=== PATIENT | male | born 1985 | race Caucasian/White ===

== ENCOUNTER 2020-10-10 10:50 | Observation (INO) | payer OTHER ==
[2020-10-10] MEDS ORDERED: METOCLOPRAMIDE 5 MG/ML 2 ML VIAL IVP STA (11:07)
[2020-10-10] MEDS ORDERED: diphenhydrAMINE 50 MG/ML 1 ML VIAL IVP STA ×2 (11:07→11:08)
[2020-10-10] MEDS ORDERED: SODIUM CHLORIDE 0.9% 1,000 ML IV STA (11:07)
[2020-10-10] MEDS ORDERED: MORPHINE SULFATE 4 MG/ML SYRINGE IVP STA (11:19)
--- NOTE | 2020-10-10 11:23 | ED ---
General Adult HPI - General Chief complaint: Nausea/Vomiting/Diarrhea Stated complaint: Abd Pain, Vomiting Time Seen by Provider: 10/10/20 10:56 Source: EMS Mode of arrival: EMS Limitations: no limitations - History of Present Illness Initial comments: 35-year-old male presents to the emergency room for chief commit of nausea vomiting. Patient is a poor strength, refusing the clutch. EMS was called and had to remove patient from the shower. Patient has been nauseous and vomiting with abdominal pain. Apparently he has a history of ulcers. - Related Data Home Medications Medication Instructions Recorded Confirmed No Known Home Medications 10/10/20 10/10/20 Allergies Allergy/AdvReac Type Severity Reaction Status Date / Time No Known Allergies Allergy Verified 10/10/20 11:41 Review of Systems ROS Statement: Those systems with pertinent positive or pertinent negative responses have been documented in the HPI. ROS Other: All systems not noted in ROS Statement are negative. Past Medical History Past Medical History: No Reported History History of Any Multi-Drug Resistant Organisms: None Reported Past Surgical History: No Surgical Hx Reported General Exam Limitations: no limitations General appearance: alert, in no apparent distress Head exam: Present: atraumatic, normocephalic, normal inspection Eye exam: Present: normal appearance, PERRL, EOMI. Absent: scleral icterus, conjunctival injection, periorbital swelling ENT exam: Present: normal exam, mucous membranes moist Neck exam: Present: normal inspection. Absent: tenderness, meningismus, lymphadenopathy Respiratory exam: Present: normal lung sounds bilaterally. Absent: respiratory distress, wheezes, rales, rhonchi, stridor Cardiovascular Exam: Present: regular rate, normal rhythm, normal heart sounds. Absent: systolic murmur, diastolic murmur, rubs, gallop, clicks GI/Abdominal exam: Present: soft, tenderness (generalized), normal bowel sounds. Absent: distended, guarding, rebound, rigid Course Vital Signs 10/10/20 10/10/20 10/10/20 10:59 11:30 12:30 Temperature 98.7 F Pulse Rate 86 89 81 Respiratory 18 18 17 Rate Blood Pressure 122/70 126/68 121/65 O2 Sat by Pulse 97 97 99 Oximetry 10/10/20 10/10/20 13:15 14:00 Temperature 98.4 F Pulse Rate 88 91 Respiratory 18 22 Rate Blood Pressure 120/60 103/81 O2 Sat by Pulse 99 99 Oximetry - Reevaluation(s) Reevaluation #1: 10/10/20 12:44 Girlfriend is at bedside at this time. She reports that this is happened patient's in the past. They used to live in [place] and she states he had to go to the ER every few months for this before moving here at the end of last year. Denies drug abuse in patient aside from marijuana. She does report that he uses the shower to help with his symptoms. Medical Decision Making - Medical Decision Making Vitals are stable. Patient refuses to speak much. He is tremulous and diaphoretic. CBC does show leukocytosis with a left shift suspect secondary to vomiting. CMP shows possible dehydration with hypercalcemia. Lactic acid of 3.0 likely due to dehydration as well as tremors.Chest x-ray shows no acute process. Urinalysis does show marijuana as well as opioid however patient was given morphine prior to drug screen. CT abdomen and pelvis is normal aside from small hiatal hernia. CT brain is pending. Patient was given several different antibiotics and continues to vomit. He was given Ativan. I suspect this is secondary to hyperemesis cannabis syndrome. However patient is intractably vomiting, diaphoretic, tremulous he will be admitted for severe headache treatment and IV hydration. - Lab Data Result diagrams: 10/10/20 11:24 10/10/20 11:24 Lab Results 10/10/20 10/10/20 10/10/20 Range/Units 11:24 11:24 11:24 WBC 20.3 H (3.8-10.6) k/uL RBC 5.53 (4.30-5.90) m/uL Hgb 18.3 H (13.0-17.5) gm/dL Hct 52.4 (39.0-53.0) % MCV 94.8 (80.0-100.0) fL MCH 33.0 (25.0-35.0) pg MCHC 34.8 (31.0-37.0) g/dL RDW 11.8 (11.5-15.5) % Plt Count 301 (150-450) k/uL MPV 7.7 Neutrophils % 87 % Lymphocytes % 6 % Monocytes % 5 % Eosinophils % 1 % Basophils % 0 % Neutrophils # 17.7 H (1.3-7.7) k/uL Lymphocytes # 1.3 (1.0-4.8) k/uL Monocytes # 0.9 (0-1.0) k/uL Eosinophils # 0.1 (0-0.7) k/uL Basophils # 0.1 (0-0.2) k/uL Sodium 143 (137-145) mmol/L Potassium 4.5 (3.5-5.1) mmol/L Chloride 109 H (98-107) mmol/L Carbon Dioxide 22 (22-30) mmol/L Anion Gap 12 mmol/L BUN 15 (9-20) mg/dL Creatinine 0.71 (0.66-1.25) mg/dL Est GFR (CKD-EPI)AfAm >90 (>60 ml/min/1.73 sqM) Est GFR (CKD-EPI)NonAf >90 (>60 ml/min/1.73 sqM) Glucose 131 H (74-99) mg/dL Plasma Lactic Acid Jonathon (0.7-2.0) mmol/L Calcium 11.1 H (8.4-10.2) mg/dL Total Bilirubin 0.6 (0.2-1.3) mg/dL AST 28 (17-59) U/L ALT 18 (4-49) U/L Alkaline Phosphatase 96 (38-126) U/L Total Protein 8.5 H (6.3-8.2) g/dL Albumin 4.9 (3.5-5.0) g/dL Amylase 171 H (30-110) U/L Lipase 220 (23-300) U/L Urine Color Yellow Urine Appearance Clear (Clear) Urine pH 6.0 (5.0-8.0) Ur Specific [place] >1.050 H (1.001-1.035) Urine Protein Trace H (Negative) Urine Glucose (UA) Negative (Negative) Urine Ketones 2+ H (Negative) Urine Blood Negative (Negative) Urine Nitrite Negative (Negative) Urine Bilirubin Negative (Negative) Urine Urobilinogen <2.0 (<2.0) mg/dL Ur Leukocyte Esterase Negative (Negative) Urine Opiates Screen (NotDetected) Ur Oxycodone Screen (NotDetected) Urine Methadone Screen (NotDetected) Ur Propoxyphene Screen (NotDetected) Ur Barbiturates Screen (NotDetected) U Tricyclic Antidepress (NotDetected) Ur Phencyclidine Scrn (NotDetected) Ur Amphetamines Screen (NotDetected) U Methamphetamines Scrn (NotDetected) U Benzodiazepines Scrn (NotDetected) Urine Cocaine Screen (NotDetected) U Marijuana (THC) Screen (NotDetected) 10/10/20 10/10/20 Range/Units 11:24 11:24 WBC (3.8-10.6) k/uL RBC (4.30-5.90) m/uL Hgb (13.0-17.5) gm/dL Hct (39.0-53.0) % MCV (80.0-100.0) fL MCH (25.0-35.0) pg MCHC (31.0-37.0) g/dL RDW (11.5-15.5) % Plt Count (150-450) k/uL MPV Neutrophils % % Lymphocytes % % Monocytes % % Eosinophils % % Basophils % % Neutrophils # (1.3-7.7) k/uL Lymphocytes # (1.0-4.8) k/uL Monocytes # (0-1.0) k/uL Eosinophils # (0-0.7) k/uL Basophils # (0-0.2) k/uL Sodium (137-145) mmol/L Potassium (3.5-5.1) mmol/L Chloride (98-107) mmol/L Carbon Dioxide (22-30) mmol/L Anion Gap mmol/L BUN (9-20) mg/dL Creatinine (0.66-1.25) mg/dL Est GFR (CKD-EPI)AfAm (>60 ml/min/1.73 sqM) Est GFR (CKD-EPI)NonAf (>60 ml/min/1.73 sqM) Glucose (74-99) mg/dL Plasma Lactic Acid Jonathon 3.0 H* (0.7-2.0) mmol/L Calcium (8.4-10.2) mg/dL Total Bilirubin (0.2-1.3) mg/dL AST (17-59) U/L ALT (4-49) U/L Alkaline Phosphatase (38-126) U/L Total Protein (6.3-8.2) g/dL Albumin (3.5-5.0) g/dL Amylase (30-110) U/L Lipase (23-300) U/L Urine Color Urine Appearance (Clear) Urine pH (5.0-8.0) Ur Specific [place] (1.001-1.035) Urine Protein (Negative) Urine Glucose (UA) (Negative) Urine Ketones (Negative) Urine Blood (Negative) Urine Nitrite (Negative) Urine Bilirubin (Negative) Urine Urobilinogen (<2.0) mg/dL Ur Leukocyte Esterase (Negative) Urine Opiates Screen Detected H (NotDetected) Ur Oxycodone Screen Not Detected (NotDetected) Urine Methadone Screen Not Detected (NotDetected) Ur Propoxyphene Screen Not Detected (NotDetected) Ur Barbiturates Screen Not Detected (NotDetected) U Tricyclic Antidepress Not Detected (NotDetected) Ur Phencyclidine Scrn Not Detected (NotDetected) Ur Amphetamines Screen Not Detected (NotDetected) U Methamphetamines Scrn Not Detected (NotDetected) U Benzodiazepines Scrn Not Detected (NotDetected) Urine Cocaine Screen Not Detected (NotDetected) U Marijuana (THC) Screen Detected H (NotDetected) Disposition Clinical Impression: Intractable nausea and vomiting, Abdominal pain, Dehydration, Leukocytosis, Lactic acidosis Disposition: ADMITTED IP TO THIS HOSP Is patient prescribed a controlled substance at d/c from ED?: No Time of Disposition: 14:17
[2020-10-10 12:18] LABS: ALT 18 U/L (4-49); African American GFR (CKD) >90 (>60 ml/min/1.73 sqM); Albumin 4.9 g/dL (3.5-5.0); Amylase 171 U/L (30-110); Anion Gap 12 mmol/L; Basophils # (A) 0.1 k/uL (0-0.2); Basophils % (A) 0 %; Blood Urea Nitrogen 15 mg/dL (9-20); Calcium 11.1 mg/dL (8.4-10.2); Carbon Dioxide 22 mmol/L (22-30); Chloride 109 mmol/L (98-107); Eosinophils # (A) 0.1 k/uL (0-0.7); Eosinophils % (A) 1 %; Glucose 131 mg/dL (74-99); HCT 52.4 % (39.0-53.0); HGB 18.3 gm/dL (13.0-17.5); Lipase 220 U/L (23-300); Lymphocytes # (A) 1.3 k/uL (1.0-4.8); Lymphocytes % (A) 6 %; MCHC 34.8 g/dL (31.0-37.0); MCV 94.8 fL (80.0-100.0); Mean Platelet Volume 7.7; Monocytes # (A) 0.9 k/uL (0-1.0); Monocytes % (A) 5 %; Neutrophils # (A) 17.7 k/uL (1.3-7.7); Neutrophils % (A) 87 %; Non-African American GFR(CKD) >90 (>60 ml/min/1.73 sqM); Platelet Count 301 k/uL (150-450); RBC 5.53 m/uL (4.30-5.90); RDW 11.8 % (11.5-15.5); Sodium 143 mmol/L (137-145); Total Bilirubin 0.6 mg/dL (0.2-1.3); Total Protein 8.5 g/dL (6.3-8.2); WBC 20.3 k/uL (3.8-10.6)
[2020-10-10 12:19] LABS: AST 28 U/L (17-59); Alkaline Phosphatase 96 U/L (38-126); Potassium 4.5 mmol/L (3.5-5.1)
[2020-10-10] MEDS ORDERED: ONDANSETRON 4 MG/2 ML VIAL IVP STA (12:44)
--- NOTE | 2020-10-10 13:18 | XR ---
EXAMINATION TYPE: XR chest 2V DATE OF EXAM: 10/10/2020 COMPARISON: None INDICATION: Leukocytosis diaphoretic TECHNIQUE: Frontal and lateral views of the chest are obtained. FINDINGS: The heart size is normal. The pulmonary vasculature is normal. The lungs are clear. IMPRESSION: 1. No acute pulmonary process.
--- NOTE | 2020-10-10 13:27 | CT ---
EXAMINATION TYPE: CT abdomen pelvis w con DATE OF EXAM: 10/10/2020 COMPARISON: None INDICATION: Patient poor historian. Patient appears diaphoretic and a bucket had emesis on the count er in the room. DLP: 740.5 mGycm, Automated exposure control for dose reduction was used. CONTRAST: 100 mL of Isovue 300. Study performed without Oral Contrast TECHNIQUE: Axial images were obtained from above the diaphragm to the pubic rami in the axial plane a t 5 mm thick sections. Reconstructed images are reviewed on the computer in the coronal plane. FINDINGS: Limited CT sections are obtained the lung bases. The lung bases are clear. There is some mild promi nence of the distal esophagus. Small hiatal hernia may be present. CT ABDOMEN: Liver: Normal Spleen: Normal Pancreas: Normal Adrenal glands: The adrenal glands are normal. Gallbladder: Normal Kidneys: No masses are evident. No hydronephrosis is present. No cysts are present. Delayed images were obtained through the kidneys, which remain unremarkable. Aorta: Normal Inferior vena cava: Normal. CT PELVIS: Loops of bowel within the abdomen and pelvis are normal. There are loops of bowel which are incom pletely distended or lack oral contrast limiting their evaluation. Appendix: Appears to be surgically absent. Urinary bladder: Normal. Genitourinary structures: Prostate is normal. Osseous structures: No suspicious lytic or sclerotic lesions. IMPRESSIONS: 1. Unremarkable CT abdomen and pelvis. 2. Small hiatal hernia may be present.
[2020-10-10 13:37] LABS: Appearance,Urine Clear (Clear); Bilirubin,Urine Negative (Negative); Blood,Urine Negative (Negative); Color,Urine Yellow; Glucose,Urine (UA) Negative (Negative); Ketones,Urine 2+ (Negative); Leukocyte Esterase,Urine Negative (Negative); Nitrite,Urine Negative (Negative); Protein,Urine Trace (Negative); Urobilinogen,Urine <2.0 mg/dL (<2.0)
[2020-10-10 13:42] LABS: Specific Gravity,Urine >1.050 (1.001-1.035)
[2020-10-10 13:45] LABS: Amphetamine Screen,Urine Not Detected (NotDetected); Barbiturate Screen,Urine Not Detected (NotDetected); Benzodiazepines Screen,Urine Not Detected (NotDetected); Cocaine Screen,Urine Not Detected (NotDetected); Methadone Screen, Urine Not Detected (NotDetected); Opiate Screen,Urine Detected (NotDetected); Oxycodone Screen, Urine Not Detected (NotDetected); Phencyclidine Screen,Urine Not Detected (NotDetected); Tricyclic Antidepressant,Urine Not Detected (NotDetected); Urn Cannabinoid Scrn Detected (NotDetected)
[2020-10-10] MEDS ORDERED: LORazepam 2 MG/ML INJ IV STA (13:59)
[2020-10-10 14:04] VITALS: TEMP 98.4
[2020-10-10] MEDS ORDERED: NALOXONE 0.4 MG/ML 1 ML VIAL IV PRN (14:18)
[2020-10-10] MEDS ORDERED: KETOROLAC 15 MG/ML 1 ML VIAL IVP PRN (14:18)
[2020-10-10] MEDS ORDERED: LORazepam 2 MG/ML INJ IV PRN (14:18)
[2020-10-10] MEDS ORDERED: ONDANSETRON 4 MG/2 ML VIAL IVP PRN (14:18)
[2020-10-10] MEDS ORDERED: SODIUM CHLORIDE 0.9% 1,000 ML IV SCH (14:30)
--- NOTE | 2020-10-10 14:39 | CT ---
EXAMINATION TYPE: CT brain wo con DATE OF EXAM: 10/10/2020 COMPARISON: None HISTORY: Altered mental status CT DLP: 1614.4 mGycm. Automated Exposure Control for Dose Reduction was Utilized. TECHNIQUE: CT scan of the head is performed without contrast. FINDINGS: There is no acute intracranial hemorrhage, mass effect, or midline shift identified. The ventricles and sulci are within normal limits in size. The globes are intact and the visualized sin uses are clear. Lucent focus is present within the parietal calvarium towards the convexity and show some fat density, findings may represent hemangioma within the skull. Cerumen is present in the exter nal auditory canal on the left. IMPRESSION: No acute intracranial hemorrhage, mass effect, or midline shift is seen.
[2020-10-10] MEDS ORDERED: PANTOPRAZOLE 40 MG/10 ML VIAL IVP SCH (16:00)
--- NOTE | 2020-10-10 16:07 | P.HPIM ---
History of Present Illness H&P Date: 10/10/20 Chief Complaint: Nausea and vomiting This is a 35-year-old male with past medical history significant for marijuana abuse that presented to the emergency room with nausea and vomiting. Patient was seen by me in the ER. He was uncooperative and not answering any questions. His nurse told me that she just gave him IV Ativan for agitation. Patient is complaining of abdominal pain. His abdomen is soft on exam but very tender. He denies alcohol use. His girlfriend said that he had similar presentation in the past. Patient also uses marijuana on a regular basis and hot showers to cope with his symptoms. Review of Systems Review of system: 14 points review of systems were obtained and were negative except to what were mentioned in the HPI. Past Medical History Past Medical History: No Reported History History of Any Multi-Drug Resistant Organisms: None Reported Past Surgical History: No Surgical Hx Reported Medications and Allergies Home Medications Medication Instructions Recorded Confirmed Type No Known Home Medications 10/10/20 10/10/20 History Allergies Allergy/AdvReac Type Severity Reaction Status Date / Time No Known Allergies Allergy Verified 10/10/20 11:41 Physical Exam Vitals: Vital Signs Temp Pulse Resp BP Pulse Ox 10/10/20 15:58 91 16 118/84 99 10/10/20 15:00 96 18 120/84 99 10/10/20 14:00 98.4 F 91 22 103/81 99 10/10/20 13:15 88 18 120/60 99 10/10/20 12:30 81 17 121/65 99 10/10/20 11:30 89 18 126/68 97 10/10/20 10:59 98.7 F 86 18 122/70 97 Intake and Output 10/10/20 10/10/20 10/10/20 06:59 14:59 22:59 Other: Weight 68.039 kg General: The patient is awake and alert, in no distress Eye: there is normal conjunctiva bilaterally. Neck: The neck is supple, there is no JVD. Cardiovascular: Normal S1-S2, no S3-S4, no murmurs. Respiratory: Lungs clear to auscultation bilaterally Gastrointestinal: Abdomen is soft, nontender Musculoskeletal: There is no pedal edema. Neurological:. Speech is normal. Skin: Skin is warm and dry Results CBC & Chem 7: 10/10/20 11:24 10/10/20 11:24 Labs: Abnormal Lab Results - Last 24 Hours (Table) 10/10/20 10/10/20 10/10/20 Range/Units 11:24 11:24 11:24 WBC 20.3 H (3.8-10.6) k/uL Hgb 18.3 H (13.0-17.5) gm/dL Neutrophils # 17.7 H (1.3-7.7) k/uL Chloride 109 H (98-107) mmol/L Glucose 131 H (74-99) mg/dL Plasma Lactic Acid Jonathon (0.7-2.0) mmol/L Calcium 11.1 H (8.4-10.2) mg/dL Total Protein 8.5 H (6.3-8.2) g/dL Amylase 171 H (30-110) U/L Ur Specific [place] >1.050 H (1.001-1.035) Urine Protein Trace H (Negative) Urine Ketones 2+ H (Negative) Urine Opiates Screen (NotDetected) U Marijuana (THC) Screen (NotDetected) 10/10/20 10/10/20 Range/Units 11:24 11:24 WBC (3.8-10.6) k/uL Hgb (13.0-17.5) gm/dL Neutrophils # (1.3-7.7) k/uL Chloride (98-107) mmol/L Glucose (74-99) mg/dL Plasma Lactic Acid Jonathon 3.0 H* (0.7-2.0) mmol/L Calcium (8.4-10.2) mg/dL Total Protein (6.3-8.2) g/dL Amylase (30-110) U/L Ur Specific [place] (1.001-1.035) Urine Protein (Negative) Urine Ketones (Negative) Urine Opiates Screen Detected H (NotDetected) U Marijuana (THC) Screen Detected H (NotDetected) Assessment and Plan Assessment: 1. Cannabis hyperemesis syndrome 2. Abdominal pain with nausea and vomiting 3. Acute encephalopathy, probably secondary to marijuana use 4. Marijuana abuse Today, I reviewed his medication list and lab work results. His lab work is all within acceptable/normal range including electrolytes, liver function tests, and lipase. UA is negative. Computed tomography scan of the head and CT of the abdomen and pelvis with no acute findings. I would obtain ammonia level. I will also check alcohol level to rule out alcohol intoxication. Continue aggressive IV fluid hydration with normal saline at 1:30 mL per hour. Patient will be placed on observation.
[2020-10-10 18:14] VITALS: RESP 20
[2020-10-10 19:11] VITALS: BP 134/78; PULSE 91
--- NOTE | 2020-10-11 11:25 | P.DS ---
Providers Date of admission: 10/10/20 14:11 Expected date of discharge: 10/11/20 Attending physician: Get Galeana Primary care physician: Stated None Hospital Course: Patient left the hospital overnight AGAINST MEDICAL ADVICE prior to my evaluation today Patient Condition at Discharge: Poor Plan - Discharge Summary New Discharge Prescriptions: No Action No Known Home Medications Discharge Medication List No Known Home Medications 10/10/20 [History] Discharge Disposition: Left Against Medical Advice
== END 2020-10-11 06:38 | disposition left against medical advice (07) ==
LOC: EC 10:50 → 5NMEDONC 14:11
PROVIDERS: ADMIT Internal Medicine Hematology & Oncology; ATTEND Internal Medicine Hematology & Oncology
DX: R11.2 Nausea with vomiting, unspecified (principal); F12.188 Cannabis abuse with other cannabis-induced disorder; G93.40 Encephalopathy, unspecified; E86.0 Dehydration; R61 Generalized hyperhidrosis; K44.9 Diaphragmatic hernia without obstruction or gangrene; D72.829 Elevated white blood cell count, unspecified; E87.2 Acidosis; R10.9 Unspecified abdominal pain; R45.1 Restlessness and agitation; Z20.822 Contact with and (suspected) exposure to COVID-19; Z53.29 Procedure and treatment not carried out because of patient's decision for other reasons
CPT/HCPCS: 96376; 96361; 96374; 96375; 99285; 36415; 80053; 82140; 82150; 83605; 83690; 85025; 81003; 80306; 87635; 71046; 70450; 74177; G0378; G0480; J2060; J2270; J1200; J2765; J2405; C9113; Q9967; 80320; 85610; 85730; 99284

== ENCOUNTER 2020-10-11 18:02 | Emergency (ER) | payer OTHER ==
[2020-10-11 18:08] VITALS: BP 154/102; PULSE 70; RESP 22; TEMP 98
[2020-10-11] MEDS ORDERED: SODIUM CHLORIDE 0.9% 1,000 ML IV STA (18:38)
[2020-10-11] MEDS ORDERED: ONDANSETRON 4 MG/2 ML VIAL IVP STA (18:41)
[2020-10-11] MEDS ORDERED: PANTOPRAZOLE 40 MG/10 ML VIAL IVP STA (18:41)
[2020-10-11 18:55] LABS: HCT 49.8 % (39.0-53.0); HGB 16.6 gm/dL (13.0-17.5); MCH 32.2 pg (25.0-35.0); MCHC 33.4 g/dL (31.0-37.0); MCV 96.5 fL (80.0-100.0); Mean Platelet Volume 7.7; Platelet Count 270 k/uL (150-450); RBC 5.16 m/uL (4.30-5.90); RDW 12.7 % (11.5-15.5); WBC 32.6 k/uL (3.8-10.6)
--- NOTE | 2020-10-11 19:00 | ED ---
General Adult HPI - General Chief complaint: Nausea/Vomiting/Diarrhea Stated complaint: GI Bleed Time Seen by Provider: 10/11/20 18:31 Source: patient, EMS, RN notes reviewed, old records reviewed Mode of arrival: EMS Limitations: no limitations - History of Present Illness Initial comments: 35-year-old male with presenting with nausea and vomiting as well as abdominal pain. He was admitted yesterday with similar complaints. He had a workup including CT abdomen pelvis, CT brain as well as laboratory testing. He had been admitted for symptom control and rehydration. He left AGAINST MEDICAL ADVICE. He is presenting again with the same complaints. He states she's thirsty and wants to drink but then sticks his finger down his throat to vomit. Nursing did request that the patient stop attempting to make himself vomit. IV was established, laboratory testing had been sent. - Related Data Home Medications Medication Instructions Recorded Confirmed No Known Home Medications 10/10/20 10/10/20 Allergies Allergy/AdvReac Type Severity Reaction Status Date / Time No Known Allergies Allergy Verified 10/11/20 18:54 Review of Systems ROS Statement: Those systems with pertinent positive or pertinent negative responses have been documented in the HPI. ROS Other: All systems not noted in ROS Statement are negative. Past Medical History Past Medical History: No Reported History History of Any Multi-Drug Resistant Organisms: None Reported Past Surgical History: No Surgical Hx Reported Past Psychological History: No Psychological Hx Reported Smoking Status: Current every day smoker Past Alcohol Use History: None Reported Past Drug Use History: None Reported General Exam Limitations: no limitations Course Vital Signs 10/11/20 18:04 Temperature 98 F Pulse Rate 70 Respiratory 22 Rate Blood Pressure 154/102 O2 Sat by Pulse 91 L Oximetry Medical Decision Making - Medical Decision Making Patient is alert and oriented, he is refusing further treatment and has left AGAINST MEDICAL ADVICE. I did inform the patient that my preference would be to treat his symptoms and to obtain laboratory testing as well as imaging. He declines and signs out AGAINST MEDICAL ADVICE. - Lab Data Result diagrams: 10/11/20 18:47 Lab Results 10/11/20 Range/Units 18:47 WBC 32.6 H (3.8-10.6) k/uL RBC 5.16 (4.30-5.90) m/uL Hgb 16.6 (13.0-17.5) gm/dL Hct 49.8 (39.0-53.0) % MCV 96.5 (80.0-100.0) fL MCH 32.2 (25.0-35.0) pg MCHC 33.4 (31.0-37.0) g/dL RDW 12.7 (11.5-15.5) % Plt Count 270 (150-450) k/uL MPV 7.7 Disposition Clinical Impression: Abdominal pain, Nausea & vomiting Disposition: Left Against Medical Advice Condition: Stable Instructions (If sedation given, give patient instructions): Abdominal Pain (ED), Acute Nausea and Vomiting (ED) Is patient prescribed a controlled substance at d/c from ED?: No Referrals: None,Stated [Primary Care Provider] - 1-2 days Daniele Swenson MD [REFERRING] - 1-2 days Time of Disposition: 18:57
[2020-10-11 19:02] LABS: ALT 17 U/L (4-49); AST 28 U/L (17-59); African American GFR (CKD) >90 (>60 ml/min/1.73 sqM); Albumin 4.7 g/dL (3.5-5.0); Alkaline Phosphatase 88 U/L (38-126); Amylase 123 U/L (30-110); Anion Gap 13 mmol/L; Blood Urea Nitrogen 19 mg/dL (9-20); Calcium 10.1 mg/dL (8.4-10.2); Carbon Dioxide 19 mmol/L (22-30); Chloride 115 mmol/L (98-107); Glucose 107 mg/dL (74-99); Lipase 119 U/L (23-300); Non-African American GFR(CKD) >90 (>60 ml/min/1.73 sqM); Potassium 3.6 mmol/L (3.5-5.1); Sodium 147 mmol/L (137-145); Total Bilirubin 0.9 mg/dL (0.2-1.3); Total Protein 8.1 g/dL (6.3-8.2)
[2020-10-11 19:21] LABS: INR 1.1 (<1.2); Partial Thromboplastin Time 22.1 sec (22.0-30.0); Prothrombin Time 11.4 sec (9.0-12.0)
[2020-10-11 19:27] LABS: Band Neutrophils % 1 %; Lymphocytes # (M) 1.63 k/uL (1.0-4.8); Neutrophils % (M) 92 %; Nucleated Red Blood Cells 0 /100 WBC (0-0); Total Cells Counted 200
== END 2020-10-11 19:00 | disposition left against medical advice (07) ==
LOC: EC 18:02
DX: R10.9 Unspecified abdominal pain (principal); R11.2 Nausea with vomiting, unspecified; R19.7 Diarrhea, unspecified; F17.200 Nicotine dependence, unspecified, uncomplicated
CPT/HCPCS: 36415; 80053; 82150; 83690; 85025; 85610; 85730; 99284

== ENCOUNTER 2020-10-12 10:41 | Emergency (ER) | payer OTHER ==
[2020-10-12 10:52] VITALS: BP 125/75; PULSE 69; RESP 20; TEMP 97.1
[2020-10-12] MEDS ORDERED: diphenhydrAMINE 50 MG/ML 1 ML VIAL IVP STA (10:56)
[2020-10-12] MEDS ORDERED: METOCLOPRAMIDE 5 MG/ML 2 ML VIAL IVP STA (10:56)
[2020-10-12] MEDS ORDERED: PANTOPRAZOLE 40 MG/10 ML VIAL IVP STA (10:56)
[2020-10-12] MEDS ORDERED: SODIUM CHLORIDE 0.9% 2,000 ML IV STA (10:56)
--- NOTE | 2020-10-12 11:26 | ED ---
Abdominal Pain HPI - General Source: patient, EMS, RN notes reviewed Mode of arrival: EMS Limitations: altered mental status <Theron Sylvester - Last Filed: 10/12/20 13:02> <Narendra Montana - Last Filed: 10/13/20 07:08> - General Chief Complaint: Abdominal Pain Stated Complaint: nasuea, vomiting Time Seen by Provider: 10/12/20 10:51 - History of Present Illness Initial Comments: This is a 35-year-old male presents emergency Department via EMS with chief complaint of abdominal pain nausea vomiting. Patient has been here twice his left AGAINST MEDICAL ADVICE twice. Patient's attempts to make herself sick. Patient complains of diffuse abdominal pain he does admit to marijuana use states some no other medications. Patient was admitted once and left. Patient states she has been seen several times in [place] and he lived in [place]. He states he has no formal diagnosis. (Theron Sylvester) - Related Data Home Medications Medication Instructions Recorded Confirmed No Known Home Medications 10/10/20 10/12/20 Allergies Allergy/AdvReac Type Severity Reaction Status Date / Time No Known Allergies Allergy Verified 10/12/20 11:42 Review of Systems ROS Other: All systems not noted in ROS Statement are negative. <Theron Sylvester - Last Filed: 10/12/20 13:02> ROS Other: All systems not noted in ROS Statement are negative. <Narendra Montana - Last Filed: 10/13/20 07:08> ROS Statement: Those systems with pertinent positive or pertinent negative responses have been documented in the HPI. Past Medical History Past Medical History: No Reported History History of Any Multi-Drug Resistant Organisms: None Reported Past Surgical History: No Surgical Hx Reported Past Psychological History: No Psychological Hx Reported Smoking Status: Current every day smoker Past Alcohol Use History: None Reported Past Drug Use History: None Reported <Theron Sylvester - Last Filed: 10/12/20 13:02> General Exam Limitations: altered mental status General appearance: alert, in no apparent distress Head exam: Present: atraumatic, normocephalic, normal inspection Eye exam: Present: normal appearance, PERRL, EOMI. Absent: scleral icterus, conjunctival injection, periorbital swelling ENT exam: Present: normal exam, normal oropharynx, mucous membranes moist Neck exam: Present: normal inspection, full ROM. Absent: tenderness, me ningismus, lymphadenopathy Respiratory exam: Present: normal lung sounds bilaterally. Absent: respiratory distress, wheezes, rales, rhonchi, stridor Cardiovascular Exam: Present: regular rate, normal rhythm, normal heart sounds. Absent: systolic murmur, diastolic murmur, rubs, gallop, clicks GI/Abdominal exam: Present: soft, tenderness, normal bowel sounds. Absent: distended, guarding, rebound, rigid Back exam: Absent: CVA tenderness (R), CVA tenderness (L) Neurological exam: Present: alert Skin exam: Present: warm, dry, intact, normal color. Absent: rash <Theron Sylvester - Last Filed: 10/12/20 13:02> Course Vital Signs 10/12/20 10/12/20 10/12/20 10:44 11:52 12:00 Temperature 97.1 F L Pulse Rate 69 Respiratory 20 20 20 Rate Blood Pressure 125/75 O2 Sat by Pulse 98 Oximetry 10/12/20 13:09 Temperature 97.1 F L Pulse Rate 69 Respiratory 20 Rate Blood Pressure 125/75 O2 Sat by Pulse 98 Oximetry Medical Decision Making - Lab Data Result diagrams: 10/12/20 11:14 10/12/20 11:14 <Theron Sylvester - Last Filed: 10/12/20 13:02> - Lab Data Result diagrams: 10/12/20 11:14 10/12/20 11:14 <Narendra Montana - Last Filed: 10/13/20 07:08> - Medical Decision Making Patient is awake alert and orientated. Patient is refusing to stay. Patient states he needs to go get meds to make him feel better. Patient will leave AGAINST MEDICAL ADVICE as he can make his own decisions understands risk of leaving. (Theron Sylvester) - Lab Data Lab Results 10/12/20 10/12/20 10/12/20 Range/Units 11:14 11:14 11:14 WBC 18.5 H (3.8-10.6) k/uL RBC 5.29 (4.30-5.90) m/uL Hgb 16.9 (13.0-17.5) gm/dL Hct 50.1 (39.0-53.0) % MCV 94.7 (80.0-100.0) fL MCH 32.1 (25.0-35.0) pg MCHC 33.9 (31.0-37.0) g/dL RDW 12.8 (11.5-15.5) % Plt Count 302 (150-450) k/uL MPV 7.8 Neutrophils % 86 % Lymphocytes % 7 % Monocytes % 6 % Eosinophils % 0 % Basophils % 0 % Neutrophils # 15.9 H (1.3-7.7) k/uL Lymphocytes # 1.3 (1.0-4.8) k/uL Monocytes # 1.1 H (0-1.0) k/uL Eosinophils # 0.1 (0-0.7) k/uL Basophils # 0.1 (0-0.2) k/uL Sodium 143 (137-145) mmol/L Potassium 3.7 (3.5-5.1) mmol/L Chloride 112 H (98-107) mmol/L Carbon Dioxide 17 L (22-30) mmol/L Anion Gap 14 mmol/L BUN 20 (9-20) mg/dL Creatinine 0.72 (0.66-1.25) mg/dL Est GFR (CKD-EPI)AfAm >90 (>60 ml/min/1.73 sqM) Est GFR (CKD-EPI)NonAf >90 (>60 ml/min/1.73 sqM) Glucose 119 H (74-99) mg/dL Lactic Ac Sepsis Rflx Plasma Lactic Acid Jonathon 2.6 H* (0.7-2.0) mmol/L Calcium 10.3 H (8.4-10.2) mg/dL Total Bilirubin 1.2 (0.2-1.3) mg/dL AST 25 (17-59) U/L ALT 16 (4-49) U/L Alkaline Phosphatase 85 (38-126) U/L Total Protein 8.0 (6.3-8.2) g/dL Albumin 4.7 (3.5-5.0) g/dL Lipase 132 (23-300) U/L Serum Alcohol <10 mg/dL 10/12/20 Range/Units 11:44 WBC (3.8-10.6) k/uL RBC (4.30-5.90) m/uL Hgb (13.0-17.5) gm/dL Hct (39.0-53.0) % MCV (80.0-100.0) fL MCH (25.0-35.0) pg MCHC (31.0-37.0) g/dL RDW (11.5-15.5) % Plt Count (150-450) k/uL MPV Neutrophils % % Lymphocytes % % Monocytes % % Eosinophils % % Basophils % % Neutrophils # (1.3-7.7) k/uL Lymphocytes # (1.0-4.8) k/uL Monocytes # (0-1.0) k/uL Eosinophils # (0-0.7) k/uL Basophils # (0-0.2) k/uL Sodium (137-145) mmol/L Potassium (3.5-5.1) mmol/L Chloride (98-107) mmol/L Carbon Dioxide (22-30) mmol/L Anion Gap mmol/L BUN (9-20) mg/dL Creatinine (0.66-1.25) mg/dL Est GFR (CKD-EPI)AfAm (>60 ml/min/1.73 sqM) Est GFR (CKD-EPI)NonAf (>60 ml/min/1.73 sqM) Glucose (74-99) mg/dL Lactic Ac Sepsis Rflx Y Plasma Lactic Acid Jonathon (0.7-2.0) mmol/L Calcium (8.4-10.2) mg/dL Total Bilirubin (0.2-1.3) mg/dL AST (17-59) U/L ALT (4-49) U/L Alkaline Phosphatase (38-126) U/L Total Protein (6.3-8.2) g/dL Albumin (3.5-5.0) g/dL Lipase (23-300) U/L Serum Alcohol mg/dL Disposition Time of Disposition: 13:03 <Theron Sylvester - Last Filed: 10/12/20 13:02> <Narendra Montana - Last Filed: 10/13/20 07:08> Clinical Impression: Nausea & vomiting, Abdominal pain Disposition: Left Against Medical Advice Referrals: None,Stated [Primary Care Provider] - 1-2 days
[2020-10-12 11:29] LABS: Basophils # (A) 0.1 k/uL (0-0.2); Basophils % (A) 0 %; Eosinophils # (A) 0.1 k/uL (0-0.7); Eosinophils % (A) 0 %; HCT 50.1 % (39.0-53.0); HGB 16.9 gm/dL (13.0-17.5); Lymphocytes # (A) 1.3 k/uL (1.0-4.8); Lymphocytes % (A) 7 %; MCH 32.1 pg (25.0-35.0); MCHC 33.9 g/dL (31.0-37.0); MCV 94.7 fL (80.0-100.0); Mean Platelet Volume 7.8; Monocytes # (A) 1.1 k/uL (0-1.0); Monocytes % (A) 6 %; Neutrophils # (A) 15.9 k/uL (1.3-7.7); Neutrophils % (A) 86 %; Platelet Count 302 k/uL (150-450); RBC 5.29 m/uL (4.30-5.90); RDW 12.8 % (11.5-15.5); WBC 18.5 k/uL (3.8-10.6)
[2020-10-12 11:42] LABS: ALT 16 U/L (4-49); AST 25 U/L (17-59); African American GFR (CKD) >90 (>60 ml/min/1.73 sqM); Albumin 4.7 g/dL (3.5-5.0); Alcohol <10 mg/dL; Alkaline Phosphatase 85 U/L (38-126); Anion Gap 14 mmol/L; Blood Urea Nitrogen 20 mg/dL (9-20); Calcium 10.3 mg/dL (8.4-10.2); Carbon Dioxide 17 mmol/L (22-30); Chloride 112 mmol/L (98-107); Glucose 119 mg/dL (74-99); Lipase 132 U/L (23-300); Non-African American GFR(CKD) >90 (>60 ml/min/1.73 sqM); Potassium 3.7 mmol/L (3.5-5.1); Sodium 143 mmol/L (137-145); Total Bilirubin 1.2 mg/dL (0.2-1.3)
[2020-10-12] MEDS: CAPSAICIN 0.025% CREAM 60 GM TUBE TOPICAL STA ×2 (13:10→13:11)
== END 2020-10-12 13:11 | disposition left against medical advice (07) ==
LOC: EC 10:41
DX: R11.2 Nausea with vomiting, unspecified (principal); R10.84 Generalized abdominal pain; F12.90 Cannabis use, unspecified, uncomplicated; F17.200 Nicotine dependence, unspecified, uncomplicated
CPT/HCPCS: 80053; 83605; 83690; 85025; 99284; 96374; 96375 ×2; 96361 ×2; G0480; J1200; J2765; C9113; 36415; 80320

== ENCOUNTER 2020-11-17 13:51 | Emergency (ER) | payer OTHER ==
[2020-11-17 14:00] VITALS: RESP 18; TEMP 98.3
[2020-11-17] MEDS ORDERED: ONDANSETRON 4 MG/2 ML VIAL IVP STA (14:12)
[2020-11-17] MEDS ORDERED: SODIUM CHLORIDE 0.9% 1,000 ML IV STA (14:12)
[2020-11-17] MEDS ORDERED: HYDROmorphone 0.5 MG/0.5 ML SYRINGE IVP STA (14:12)
[2020-11-17 15:12] LABS: Basophils % (A) 0 %; Eosinophils # (A) 0.1 k/uL (0-0.7); Eosinophils % (A) 0 %; HCT 51.5 % (39.0-53.0); HGB 17.2 gm/dL (13.0-17.5); Lymphocytes # (A) 1.5 k/uL (1.0-4.8); Lymphocytes % (A) 10 %; MCH 31.8 pg (25.0-35.0); MCHC 33.4 g/dL (31.0-37.0); MCV 95.2 fL (80.0-100.0); Mean Platelet Volume 7.9; Monocytes # (A) 1.2 k/uL (0-1.0); Monocytes % (A) 8 %; Neutrophils # (A) 12.7 k/uL (1.3-7.7); Neutrophils % (A) 81 %; Platelet Count 319 k/uL (150-450); RBC 5.41 m/uL (4.30-5.90); RDW 12.6 % (11.5-15.5); WBC 15.8 k/uL (3.8-10.6)
--- NOTE | 2020-11-17 15:15 | ED ---
General Adult HPI - General Chief complaint: Abdominal Pain Stated complaint: Vomiting Time Seen by Provider: 11/17/20 14:04 Source: patient, EMS Mode of arrival: EMS - History of Present Illness Initial comments: 35-year-old male with a past medical history of chronic pancreatitis presents to the emergency room for abdominal pain. Patient states the past 4 days he has had abdominal pain as well as nausea vomiting. Patient reports this is consistent with his chronic pancreatitis. Patient has been apparently seen at [facility] this is his fourth ER visit in the past couple days. Patient is a poor historian.Patient has no other complaints at this time including shortness of breath, chest pain, headache, or visual changes. - Related Data Previous Rx's Medication Instructions Recorded Ondansetron [Zofran ODT] 4 mg PO Q8HR PRN #15 tab 11/17/20 Allergies Allergy/AdvReac Type Severity Reaction Status Date / Time No Known Allergies Allergy Verified 11/17/20 14:00 Review of Systems ROS Statement: Those systems with pertinent positive or pertinent negative responses have been documented in the HPI. ROS Other: All systems not noted in ROS Statement are negative. Past Medical History Past Medical History: No Reported History History of Any Multi-Drug Resistant Organisms: None Reported Past Surgical History: Adenoidectomy Past Psychological History: No Psychological Hx Reported Smoking Status: Current every day smoker Past Alcohol Use History: None Reported Past Drug Use History: None Reported General Exam General appearance: alert, in no apparent distress Head exam: Present: atraumatic, normocephalic, normal inspection Eye exam: Present: normal appearance, PERRL, EOMI. Absent: scleral icterus, conjunctival injection, periorbital swelling ENT exam: Present: normal exam, mucous membranes moist Neck exam: Present: normal inspection. Absent: tenderness, meningismus, lymphadenopathy Respiratory exam: Present: normal lung sounds bilaterally. Absent: respiratory distress, wheezes, rales, rhonchi, stridor Cardiovascular Exam: Present: regular rate, normal rhythm, normal heart sounds. Absent: systolic murmur, diastolic murmur, rubs, gallop, clicks GI/Abdominal exam: Present: soft, tenderness (generalized abdominal tenderness), normal bowel sounds. Absent: distended, guarding, rebound, rigid Course Vital Signs 11/17/20 13:57 Temperature 98.3 F Pulse Rate 90 Respiratory 18 Rate Blood Pressure 135/89 O2 Sat by Pulse 98 Oximetry - Reevaluation(s) Reevaluation #1: 11/17/20 15:16 CT noted that patient had contrast in his bladder and therefore did not complete the abdomen and pelvis CAT scan. I will work on getting the results from [facility]. I was not aware patient had a previous CAT scan. Reevaluation #2: 11/17/20 15:48 I did obtain his records from [facility] for review. 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 He was seen again on the with the same diagnosis. Patient was again seen today and had a CAT scan at their facility. This showed no significant abnormalities seen. The patient signed out AMA from their facility. Medical Decision Making - Medical Decision Making Those are stable. CBC does show leukocytosis which is likely secondary to vomiting. CMP unremarkable. Patient is dehydrated with a BUN of 24 and ketones are 3+ in the urine. Given a liter of fluid. CT from other facility was reviewed which showed no significant abnormality. Patient was given pain medication and antiemetics. Reevaluated, sleeping and feeling much better. Tolerating oral intake. Patient will be discharged home with oral antiemetics. - Lab Data Result diagrams: 11/17/20 14:28 11/17/20 14:28 Lab Results 11/17/20 11/17/20 11/17/20 Range/Units 14:28 14:28 14:28 WBC 15.8 H (3.8-10.6) k/uL RBC 5.41 (4.30-5.90) m/uL Hgb 17.2 (13.0-17.5) gm/dL Hct 51.5 (39.0-53.0) % MCV 95.2 (80.0-100.0) fL MCH 31.8 (25.0-35.0) pg MCHC 33.4 (31.0-37.0) g/dL RDW 12.6 (11.5-15.5) % Plt Count 319 (150-450) k/uL MPV 7.9 Neutrophils % 81 % Lymphocytes % 10 % Monocytes % 8 % Eosinophils % 0 % Basophils % 0 % Neutrophils # 12.7 H (1.3-7.7) k/uL Lymphocytes # 1.5 (1.0-4.8) k/uL Monocytes # 1.2 H (0-1.0) k/uL Eosinophils # 0.1 (0-0.7) k/uL Basophils # 0.0 (0-0.2) k/uL Sodium 144 (137-145) mmol/L Potassium 5.1 (3.5-5.1) mmol/L Chloride 110 H (98-107) mmol/L Carbon Dioxide 20 L (22-30) mmol/L Anion Gap 14 mmol/L BUN 24 H (9-20) mg/dL Creatinine 0.82 (0.66-1.25) mg/dL Est GFR (CKD-EPI)AfAm >90 (>60 ml/min/1.73 sqM) Est GFR (CKD-EPI)NonAf >90 (>60 ml/min/1.73 sqM) Glucose 110 H (74-99) mg/dL Plasma Lactic Acid Jonathon (0.7-2.0) mmol/L Calcium 10.4 H (8.4-10.2) mg/dL Total Bilirubin 1.8 H (0.2-1.3) mg/dL AST 58 (17-59) U/L ALT 18 (4-49) U/L Alkaline Phosphatase 79 (38-126) U/L Total Protein 8.8 H (6.3-8.2) g/dL Albumin 5.3 H (3.5-5.0) g/dL Amylase 87 (30-110) U/L Lipase 84 (23-300) U/L Urine Color Yellow Urine Appearance Clear (Clear) Urine pH 6.0 (5.0-8.0) Ur Specific [place] >1.050 H (1.001-1.035) Urine Protein 1+ H (Negative) Urine Glucose (UA) Negative (Negative) Urine Ketones 3+ H (Negative) Urine Blood Small H (Negative) Urine Nitrite Negative (Negative) Urine Bilirubin Negative (Negative) Urine Urobilinogen <2.0 (<2.0) mg/dL Ur Leukocyte Esterase Negative (Negative) Urine RBC 6 H (0-5) /hpf Urine WBC 2 (0-5) /hpf Ur Squamous Epith Cells <1 (0-4) /hpf Urine Mucus Many H (None) /hpf 06/18/21 Range/Units 14:28 WBC (3.8-10.6) k/uL RBC (4.30-5.90) m/uL Hgb (13.0-17.5) gm/dL Hct (39.0-53.0) % MCV (80.0-100.0) fL MCH (25.0-35.0) pg MCHC (31.0-37.0) g/dL RDW (11.5-15.5) % Plt Count (150-450) k/uL MPV Neutrophils % % Lymphocytes % % Monocytes % % Eosinophils % % Basophils % % Neutrophils # (1.3-7.7) k/uL Lymphocytes # (1.0-4.8) k/uL Monocytes # (0-1.0) k/uL Eosinophils # (0-0.7) k/uL Basophils # (0-0.2) k/uL Sodium (137-145) mmol/L Potassium (3.5-5.1) mmol/L Chloride (98-107) mmol/L Carbon Dioxide (22-30) mmol/L Anion Gap mmol/L BUN (9-20) mg/dL Creatinine (0.66-1.25) mg/dL Est GFR (CKD-EPI)AfAm (>60 ml/min/1.73 sqM) Est GFR (CKD-EPI)NonAf (>60 ml/min/1.73 sqM) Glucose (74-99) mg/dL Plasma Lactic Acid Jonathon 1.6 (0.7-2.0) mmol/L Calcium (8.4-10.2) mg/dL Total Bilirubin (0.2-1.3) mg/dL AST (17-59) U/L ALT (4-49) U/L Alkaline Phosphatase (38-126) U/L Total Protein (6.3-8.2) g/dL Albumin (3.5-5.0) g/dL Amylase (30-110) U/L Lipase (23-300) U/L Urine Color Urine Appearance (Clear) Urine pH (5.0-8.0) Ur Specific [place] (1.001-1.035) Urine Protein (Negative) Urine Glucose (UA) (Negative) Urine Ketones (Negative) Urine Blood (Negative) Urine Nitrite (Negative) Urine Bilirubin (Negative) Urine Urobilinogen (<2.0) mg/dL Ur Leukocyte Esterase (Negative) Urine RBC (0-5) /hpf Urine WBC (0-5) /hpf Ur Squamous Epith Cells (0-4) /hpf Urine Mucus (None) /hpf Disposition Clinical Impression: Nausea & vomiting Disposition: HOME SELF-CARE Condition: Good Instructions (If sedation given, give patient instructions): Acute Nausea and Vomiting (ED) Additional Instructions: Please take nausea medicine as directed. Follow-up with your doctor in one to 2 days. Return to the emergency room for any worsening symptoms. Prescriptions: Ondansetron [Zofran ODT] 4 mg PO Q8HR PRN #15 tab PRN Reason: Nausea Is patient prescribed a controlled substance at d/c from ED?: No Referrals: Jose Hanson MD [REFERRING] - 1-2 days Time of Disposition: 16:32
[2020-11-17 15:21] LABS: ALT 18 U/L (4-49); AST 58 U/L (17-59); African American GFR (CKD) >90 (>60 ml/min/1.73 sqM); Albumin 5.3 g/dL (3.5-5.0); Alkaline Phosphatase 79 U/L (38-126); Amylase 87 U/L (30-110); Anion Gap 14 mmol/L; Blood Urea Nitrogen 24 mg/dL (9-20); Calcium 10.4 mg/dL (8.4-10.2); Carbon Dioxide 20 mmol/L (22-30); Chloride 110 mmol/L (98-107); Glucose 110 mg/dL (74-99); Lipase 84 U/L (23-300); Non-African American GFR(CKD) >90 (>60 ml/min/1.73 sqM); Sodium 144 mmol/L (137-145); Total Bilirubin 1.8 mg/dL (0.2-1.3); Total Protein 8.8 g/dL (6.3-8.2)
[2020-11-17 15:25] LABS: Potassium 5.1 mmol/L (3.5-5.1)
[2020-11-17 15:36] LABS: Appearance,Urine Clear (Clear); Bilirubin,Urine Negative (Negative); Blood,Urine Small (Negative); Color,Urine Yellow; Glucose,Urine (UA) Negative (Negative); Ketones,Urine 3+ (Negative); Leukocyte Esterase,Urine Negative (Negative); Mucus,Urine Many /hpf; Nitrite,Urine Negative (Negative); Protein,Urine 1+ (Negative); RBC,Urine 6 /hpf (0-5); Squamous Epithelial Cell,Urine <1 /hpf (0-4); Urobilinogen,Urine <2.0 mg/dL (<2.0); WBC,Urine 2 /hpf (0-5)
[2020-11-17 15:41] LABS: Specific Gravity,Urine >1.050 (1.001-1.035)
--- NOTE | 2020-11-17 16:14 | CT ---
EXAMINATION TYPE: CT discontinued procedure DATE OF EXAM: 11/17/2020 COMPARISON: None immediately available HISTORY: Patient poor historian and scan stopped after driveway sealer when contrast was seen in the bladder. CT DLP: 9.4 mGycm Automated exposure control for dose reduction was used. Contrast: None Technique: Parking Enforcement Specialist views were obtained in the AP and lateral projection over the abdomen. FINDINGS: There is contrast from a examination was evidently performed this morning at a different institution. Normal colonic bowel gas is present. The osseous structures appear grossly normal. The procedure was terminated prior to any additional imaging at the request of the emergency room. IMPRESSION: 1. NONDIAGNOSTIC EXAMINATION LIMITED TO CRM CONSULTANT VIEWS
[2020-11-17 16:52] VITALS: BP 123/69; PULSE 98
== END 2020-11-17 16:52 | disposition home or self-care (01) ==
LOC: EC 13:51
DX: R11.2 Nausea with vomiting, unspecified (principal); R10.84 Generalized abdominal pain; F17.200 Nicotine dependence, unspecified, uncomplicated
CPT/HCPCS: 36415; 76380; 80053; 81001; 82150; 83605; 83690; 85025; 96361; 96374; 96375; 99284

== ENCOUNTER 2020-11-18 10:56 | Emergency (ER) | payer OTHER ==
[2020-11-18 11:05] VITALS: RESP 18; TEMP 99.1
[2020-11-18] MEDS ORDERED: SODIUM CHLORIDE 0.9% 1,000 ML IV STA (11:09)
--- NOTE | 2020-11-18 11:11 | ED ---
Nausea/Vomiting/Diarrhea HPI - General Chief complaint: Nausea/Vomiting/Diarrhea Stated complaint: ABD pain Time Seen by Provider: 11/18/20 11:05 Source: patient, EMS, RN notes reviewed, old records reviewed Mode of arrival: EMS Limitations: no limitations - History of Present Illness Initial comments: 35-year-old white male, presents to the emergency room via EMS with several days of abdominal pain with nausea and vomiting. Patient has been seen multiple times in the past few days here and at [facility] emergency room. Patient has had multiple CTs this week according to medical records. Patient not forthcoming with information does state he has pain and is retching. Patient not answering questions at this time but does state that he is not using marijuana or any other drug or alcohol use. He does state that he's had 2 black tarry stools today. Patient states he did not fill his Zofran was prescribed yesterday. According to the medical records patient has a history of chronic pancreatitis. History of marijuana use which patient denies. MD complaint: nausea, vomiting, abdominal pain, other (2 episodes of black stool) Description of Diarrhea: tarry Associated Abdominal Pain: Yes - Related Data Previous Rx's Medication Instructions Recorded Ondansetron [Zofran ODT] 4 mg PO Q8HR PRN #15 tab 11/17/20 Allergies Allergy/AdvReac Type Severity Reaction Status Date / Time No Known Allergies Allergy Verified 11/17/20 14:00 Review of Systems ROS Statement: Those systems with pertinent positive or pertinent negative responses have been documented in the HPI. ROS Other: All systems not noted in ROS Statement are negative. Past Medical History Past Medical History: No Reported History Additional Past Medical History / Comment(s): Stomach Ulcers History of Any Multi-Drug Resistant Organisms: None Reported Past Surgical History: Adenoidectomy Past Psychological History: No Psychological Hx Reported Smoking Status: Current every day smoker Past Alcohol Use History: None Reported Past Drug Use History: None Reported General Exam Limitations: no limitations Course Vital Signs 11/18/20 11/18/20 11:00 12:02 Temperature 99.1 F Pulse Rate 68 85 Respiratory 18 18 Rate Blood Pressure 150/115 142/91 O2 Sat by Pulse 97 99 Oximetry - Reevaluation(s) Reevaluation #1: 11/18/20 11:40 Called the patient's room is patient appeared to be having seizure-type activity shaking on the cart. Patient claims legs extended on the bed with arched back and turning head left to right, lasting approximately 60 seconds and then patient started to bend the right knee and lift back up off the cart. Patient reassessed with tongue blade and patient bit down on the tongue blade. Patient withdrew from intraocular pressure and sternal rub during seizure-type activity. Pupils were equal at 3 and reactive during seizure activity. Patient was not incontinent of bowel or bladder. Seizure type activity lasting less than 3 minutes and then patient awoke asking where he wasn't wanting water, alert and oriented 4. CT ordered and labs sent prior to seizure activity. Patient does not have a seizure history. 11/18/20 11:45 Dr. Gonsalves notified of patient's status. Time: 11:40 Medical Decision Making - Medical Decision Making Patient pulled his own IV and left the hospital per nurse Baker. States patient ambulated out of the ER with a steady gait. - Lab Data Result diagrams: 11/18/20 11:10 11/18/20 11:10 Lab Results 11/18/20 11/18/20 11/18/20 Range/Units 11:10 11:10 11:10 WBC 13.7 H (3.8-10.6) k/uL RBC 5.19 (4.30-5.90) m/uL Hgb 17.3 (13.0-17.5) gm/dL Hct 48.7 (39.0-53.0) % MCV 93.7 (80.0-100.0) fL MCH 33.3 (25.0-35.0) pg MCHC 35.6 (31.0-37.0) g/dL RDW 11.7 (11.5-15.5) % Plt Count 279 (150-450) k/uL MPV 7.4 Neutrophils % 72 % Lymphocytes % 18 % Monocytes % 8 % Eosinophils % 1 % Basophils % 1 % Neutrophils # 9.9 H (1.3-7.7) k/uL Lymphocytes # 2.4 (1.0-4.8) k/uL Monocytes # 1.1 H (0-1.0) k/uL Eosinophils # 0.1 (0-0.7) k/uL Basophils # 0.1 (0-0.2) k/uL Sodium 144 (137-145) mmol/L Potassium 3.9 (3.5-5.1) mmol/L Chloride 108 H (98-107) mmol/L Carbon Dioxide 19 L (22-30) mmol/L Anion Gap 17 mmol/L BUN 22 H (9-20) mg/dL Creatinine 0.88 (0.66-1.25) mg/dL Est GFR (CKD-EPI)AfAm >90 (>60 ml/min/1.73 sqM) Est GFR (CKD-EPI)NonAf >90 (>60 ml/min/1.73 sqM) Glucose 106 H (74-99) mg/dL Plasma Lactic Acid Jonathon (0.7-2.0) mmol/L Calcium 11.5 H (8.4-10.2) mg/dL Total Bilirubin 1.8 H (0.2-1.3) mg/dL AST 33 (17-59) U/L ALT 18 (4-49) U/L Alkaline Phosphatase 84 (38-126) U/L Total Protein 8.1 (6.3-8.2) g/dL Albumin 4.9 (3.5-5.0) g/dL Amylase 108 (30-110) U/L Lipase 328 H (23-300) U/L Stool Occult Blood Negative (Negative) 11/18/20 Range/Units 11:10 WBC (3.8-10.6) k/uL RBC (4.30-5.90) m/uL Hgb (13.0-17.5) gm/dL Hct (39.0-53.0) % MCV (80.0-100.0) fL MCH (25.0-35.0) pg MCHC (31.0-37.0) g/dL RDW (11.5-15.5) % Plt Count (150-450) k/uL MPV Neutrophils % % Lymphocytes % % Monocytes % % Eosinophils % % Basophils % % Neutrophils # (1.3-7.7) k/uL Lymphocytes # (1.0-4.8) k/uL Monocytes # (0-1.0) k/uL Eosinophils # (0-0.7) k/uL Basophils # (0-0.2) k/uL Sodium (137-145) mmol/L Potassium (3.5-5.1) mmol/L Chloride (98-107) mmol/L Carbon Dioxide (22-30) mmol/L Anion Gap mmol/L BUN (9-20) mg/dL Creatinine (0.66-1.25) mg/dL Est GFR (CKD-EPI)AfAm (>60 ml/min/1.73 sqM) Est GFR (CKD-EPI)NonAf (>60 ml/min/1.73 sqM) Glucose (74-99) mg/dL Plasma Lactic Acid Jonathon 2.4 H* (0.7-2.0) mmol/L Calcium (8.4-10.2) mg/dL Total Bilirubin (0.2-1.3) mg/dL AST (17-59) U/L ALT (4-49) U/L Alkaline Phosphatase (38-126) U/L Total Protein (6.3-8.2) g/dL Albumin (3.5-5.0) g/dL Amylase (30-110) U/L Lipase (23-300) U/L Stool Occult Blood (Negative) Disposition Clinical Impression: Nausea & vomiting, Abdominal pain Disposition: Left Against Medical Advice Condition: Stable Instructions (If sedation given, give patient instructions): Acute Nausea and Vomiting (ED) Referrals: None,Stated [Primary Care Provider] - 1-2 days Time of Disposition: 12:46
[2020-11-18 11:24] LABS: Basophils # (A) 0.1 k/uL (0-0.2); Basophils % (A) 1 %; Eosinophils # (A) 0.1 k/uL (0-0.7); Eosinophils % (A) 1 %; HCT 48.7 % (39.0-53.0); HGB 17.3 gm/dL (13.0-17.5); Lymphocytes # (A) 2.4 k/uL (1.0-4.8); Lymphocytes % (A) 18 %; MCH 33.3 pg (25.0-35.0); MCHC 35.6 g/dL (31.0-37.0); MCV 93.7 fL (80.0-100.0); Mean Platelet Volume 7.4; Monocytes # (A) 1.1 k/uL (0-1.0); Monocytes % (A) 8 %; Neutrophils # (A) 9.9 k/uL (1.3-7.7); Neutrophils % (A) 72 %; Platelet Count 279 k/uL (150-450); RBC 5.19 m/uL (4.30-5.90); RDW 11.7 % (11.5-15.5); WBC 13.7 k/uL (3.8-10.6)
[2020-11-18] MEDS ORDERED: FAMOTIDINE 20 MG/2 ML VIAL IV STA (11:31)
[2020-11-18 11:36] LABS: ALT 18 U/L (4-49); AST 33 U/L (17-59); African American GFR (CKD) >90 (>60 ml/min/1.73 sqM); Albumin 4.9 g/dL (3.5-5.0); Alkaline Phosphatase 84 U/L (38-126); Amylase 108 U/L (30-110); Anion Gap 17 mmol/L; Blood Urea Nitrogen 22 mg/dL (9-20); Calcium 11.5 mg/dL (8.4-10.2); Carbon Dioxide 19 mmol/L (22-30); Chloride 108 mmol/L (98-107); Glucose 106 mg/dL (74-99); Lipase 328 U/L (23-300); Non-African American GFR(CKD) >90 (>60 ml/min/1.73 sqM); Potassium 3.9 mmol/L (3.5-5.1); Sodium 144 mmol/L (137-145); Total Bilirubin 1.8 mg/dL (0.2-1.3); Total Protein 8.1 g/dL (6.3-8.2)
[2020-11-18 12:06] VITALS: BP 142/91; PULSE 85
== END 2020-11-18 12:34 | disposition left against medical advice (07) ==
LOC: EC 10:56
DX: R11.2 Nausea with vomiting, unspecified (principal); R10.9 Unspecified abdominal pain; F17.200 Nicotine dependence, unspecified, uncomplicated
CPT/HCPCS: 80053; 82150; 83605; 83690; 85025; 82272; 99284; 96374; 96375; 96361; J1790

== ENCOUNTER 2021-11-18 01:51 | Emergency (ER) | payer OTHER ==
[2021-11-18 02:09] LABS: Basophils # (A) 0.1 k/uL (0-0.2); Basophils % (A) 0 %; Eosinophils # (A) 0.2 k/uL (0-0.7); Eosinophils % (A) 1 %; HCT 49.8 % (39.0-53.0); HGB 16.5 gm/dL (13.0-17.5); Lymphocytes # (A) 0.6 k/uL (1.0-4.8); Lymphocytes % (A) 4 %; MCH 32.6 pg (25.0-35.0); MCHC 33.2 g/dL (31.0-37.0); MCV 98.3 fL (80.0-100.0); Mean Platelet Volume 7.6; Monocytes # (A) 0.5 k/uL (0-1.0); Monocytes % (A) 3 %; Neutrophils # (A) 15.1 k/uL (1.3-7.7); Neutrophils % (A) 92 %; Platelet Count 292 k/uL (150-450); RBC 5.07 m/uL (4.30-5.90); RDW 11.5 % (11.5-15.5); WBC 16.4 k/uL (3.8-10.6)
[2021-11-18 02:24] LABS: ALT 21 U/L (4-49); AST 35 U/L (17-59); African American GFR (CKD) >90 (>60 ml/min/1.73 sqM); Albumin 5.2 g/dL (3.5-5.0); Alkaline Phosphatase 68 U/L (38-126); Amylase 68 U/L (30-110); Anion Gap 14 mmol/L; Blood Urea Nitrogen 19 mg/dL (9-20); Calcium 10.1 mg/dL (8.4-10.2); Carbon Dioxide 22 mmol/L (22-30); Chloride 108 mmol/L (98-107); Glucose 152 mg/dL (74-99); Lipase 37 U/L (23-300); Non-African American GFR(CKD) >90 (>60 ml/min/1.73 sqM); Potassium 3.8 mmol/L (3.5-5.1); Sodium 144 mmol/L (137-145); Total Bilirubin 0.5 mg/dL (0.2-1.3); Total Protein 8.7 g/dL (6.3-8.2)
[2021-11-18] MEDS ORDERED: SODIUM CHLORIDE 0.9% 500 ML 500 ML IV STA (04:22)
[2021-11-18] MEDS ORDERED: ONDANSETRON 4 MG/2 ML VIAL IVP STA (04:22)
[2021-11-18] MEDS ORDERED: FAMOTIDINE 20 MG/2 ML VIAL IV STA (04:42)
--- NOTE | 2021-11-18 07:10 | ED ---
Nausea/Vomiting/Diarrhea HPI - General Chief complaint: Nausea/Vomiting/Diarrhea Stated complaint: abd pain, vomiting Time Seen by Provider: 11/18/21 04:22 Source: patient, EMS Mode of arrival: EMS Limitations: no limitations - History of Present Illness MD complaint: nausea, vomiting, abdominal pain -: days(s) Description of Vomiting: watery Associated Abdominal Pain: Yes Location: diffuse Radiation: none Severity: severe Quality: cramping, aching Consistency: constant Improves with: none Worsens with: vomiting Associated Symptoms: denies other symptoms - Related Data Previous Rx's Medication Instructions Recorded Acetaminophen [Tylenol] 500 mg PO Q4-6H PRN #24 tab 09/06/21 Albuterol Sulfate [Albuterol 2 puff PO Q6H #8.5 gm 09/06/21 Sulfate Hfa] methylPREDNISolone [Medrol] 4 mg PO DIRECTED #1 each 09/06/21 Ondansetron Odt [Zofran ODT] 4 mg PO Q8HR PRN #10 tab 11/18/21 Allergies Allergy/AdvReac Type Severity Reaction Status Date / Time No Known Allergies Allergy Verified 11/18/21 02:01 Review of Systems ROS Statement: Those systems with pertinent positive or pertinent negative responses have been documented in the HPI. ROS Other: All systems not noted in ROS Statement are negative. Constitutional: Denies: fever, chills Respiratory: Denies: cough, dyspnea Cardiovascular: Denies: chest pain, palpitations, syncope Gastrointestinal: Reports: abdominal pain, nausea, vomiting. Denies: diarrhea, constipation, hematemesis, melena, hematochezia Genitourinary: Denies: dysuria, hematuria Musculoskeletal: Denies: back pain Skin: Denies: rash Neurological: Denies: headache, weakness, numbness Past Medical History Past Medical History: No Reported History Additional Past Medical History / Comment(s): Stomach Ulcers History of Any Multi-Drug Resistant Organisms: None Reported Past Surgical History: Adenoidectomy Past Psychological History: No Psychological Hx Reported Smoking Status: Current every day smoker Past Alcohol Use History: None Reported Past Drug Use History: None Reported General Exam Limitations: no limitations General appearance: alert, in no apparent distress Head exam: Present: atraumatic, normocephalic Eye exam: Present: normal appearance. Absent: scleral icterus, conjunctival injection Neck exam: Present: normal inspection Respiratory exam: Present: normal lung sounds bilaterally. Absent: respiratory distress, wheezes, rales, rhonchi, stridor Cardiovascular Exam: Present: regular rate, normal rhythm, normal heart sounds. Absent: systolic murmur, diastolic murmur, rubs, gallop GI/Abdominal exam: Present: soft. Absent: distended, tenderness, guarding, rebound, rigid, mass, pulsatile mass, hernia Extremities exam: Present: normal inspection, normal capillary refill. Absent: pedal edema, calf tenderness Back exam: Present: normal inspection. Absent: CVA tenderness (R), CVA tender ness (L) Neurological exam: Present: alert Skin exam: Present: warm, dry, intact, normal color. Absent: rash Course Vital Signs 11/18/21 11/18/21 01:57 06:20 Temperature 97.9 F 98.3 F Pulse Rate 71 108 H Respiratory 18 12 Rate Blood Pressure 137/82 142/94 O2 Sat by Pulse 96 96 Oximetry Medical Decision Making - Lab Data Result diagrams: 11/18/21 02:03 11/18/21 02:03 Lab Results 11/18/21 11/18/21 11/18/21 Range/Units 02:03 02:03 02:03 WBC 16.4 H (3.8-10.6) k/uL RBC 5.07 (4.30-5.90) m/uL Hgb 16.5 (13.0-17.5) gm/dL Hct 49.8 (39.0-53.0) % MCV 98.3 (80.0-100.0) fL MCH 32.6 (25.0-35.0) pg MCHC 33.2 (31.0-37.0) g/dL RDW 11.5 (11.5-15.5) % Plt Count 292 (150-450) k/uL MPV 7.6 Neutrophils % 92 % Lymphocytes % 4 % Monocytes % 3 % Eosinophils % 1 % Basophils % 0 % Neutrophils # 15.1 H (1.3-7.7) k/uL Lymphocytes # 0.6 L (1.0-4.8) k/uL Monocytes # 0.5 (0-1.0) k/uL Eosinophils # 0.2 (0-0.7) k/uL Basophils # 0.1 (0-0.2) k/uL Sodium 144 (137-145) mmol/L Potassium 3.8 (3.5-5.1) mmol/L Chloride 108 H (98-107) mmol/L Carbon Dioxide 22 (22-30) mmol/L Anion Gap 14 mmol/L BUN 19 (9-20) mg/dL Creatinine 0.76 (0.66-1.25) mg/dL Est GFR (CKD-EPI)AfAm >90 (>60 ml/min/1.73 sqM) Est GFR (CKD-EPI)NonAf >90 (>60 ml/min/1.73 sqM) Glucose 152 H (74-99) mg/dL Plasma Lactic Acid Jonathon 1.8 (0.7-2.0) mmol/L Calcium 10.1 (8.4-10.2) mg/dL Total Bilirubin 0.5 (0.2-1.3) mg/dL AST 35 (17-59) U/L ALT 21 (4-49) U/L Alkaline Phosphatase 68 (38-126) U/L Total Protein 8.7 H (6.3-8.2) g/dL Albumin 5.2 H (3.5-5.0) g/dL Amylase 68 (30-110) U/L Lipase 37 (23-300) U/L Disposition Clinical Impression: Vomiting Disposition: HOME SELF-CARE Instructions (If sedation given, give patient instructions): Acute Nausea and Vomiting (ED) Prescriptions: Ondansetron Odt [Zofran ODT] 4 mg PO Q8HR PRN #10 tab PRN Reason: Nausea Is patient prescribed a controlled substance at d/c from ED?: No Referrals: None,Stated [Primary Care Provider] - 1-2 days
[2021-11-18 08:51] VITALS: BP 141/78; PULSE 87; RESP 18; TEMP 97.8
== END 2021-11-18 08:51 | disposition home or self-care (01) ==
LOC: EC 01:51
DX: R11.2 Nausea with vomiting, unspecified (principal); F17.200 Nicotine dependence, unspecified, uncomplicated
CPT/HCPCS: 36415; 80053; 82150; 83605; 83690; 85025; 99284; 96374; 96361; J2405

== ENCOUNTER 2021-11-19 06:24 | Emergency (ER) | payer OTHER ==
[2021-11-19] MEDS ORDERED: METOCLOPRAMIDE 5 MG/ML 2 ML VIAL IVP STA (06:40)
[2021-11-19] MEDS ORDERED: PANTOPRAZOLE 40 MG/10 ML VIAL IVP STA (06:40)
[2021-11-19] MEDS ORDERED: SODIUM CHLORIDE 0.9% 2,000 ML IV STA (06:40)
[2021-11-19] MEDS ORDERED: diphenhydrAMINE 50 MG/ML 1 ML VIAL IVP STA (06:40)
[2021-11-19 07:07] LABS: Basophils # (A) 0.1 k/uL (0-0.2); Basophils % (A) 1 %; Eosinophils # (A) 0.1 k/uL (0-0.7); Eosinophils % (A) 1 %; HCT 45.9 % (39.0-53.0); HGB 15.5 gm/dL (13.0-17.5); Lymphocytes # (A) 1.2 k/uL (1.0-4.8); Lymphocytes % (A) 9 %; MCH 32.7 pg (25.0-35.0); MCHC 33.8 g/dL (31.0-37.0); MCV 96.8 fL (80.0-100.0); Mean Platelet Volume 7.5; Monocytes # (A) 1.1 k/uL (0-1.0); Monocytes % (A) 8 %; Neutrophils # (A) 10.9 k/uL (1.3-7.7); Neutrophils % (A) 81 %; Platelet Count 286 k/uL (150-450); RBC 4.74 m/uL (4.30-5.90); RDW 11.6 % (11.5-15.5); WBC 13.6 k/uL (3.8-10.6)
[2021-11-19 07:17] LABS: ALT 20 U/L (4-49); AST 31 U/L (17-59); African American GFR (CKD) >90 (>60 ml/min/1.73 sqM); Albumin 4.7 g/dL (3.5-5.0); Alcohol <10 mg/dL; Alkaline Phosphatase 57 U/L (38-126); Amylase 218 U/L (30-110); Anion Gap 13 mmol/L; Blood Urea Nitrogen 24 mg/dL (9-20); Calcium 9.7 mg/dL (8.4-10.2); Carbon Dioxide 20 mmol/L (22-30); Chloride 108 mmol/L (98-107); Glucose 114 mg/dL (74-99); Lipase 533 U/L (23-300); Non-African American GFR(CKD) >90 (>60 ml/min/1.73 sqM); Potassium 3.8 mmol/L (3.5-5.1); Sodium 141 mmol/L (137-145); Total Protein 7.9 g/dL (6.3-8.2)
--- NOTE | 2021-11-19 07:33 | ED ---
General Adult HPI - General Chief complaint: Nausea/Vomiting/Diarrhea Stated complaint: vomiting blood Time Seen by Provider: 11/19/21 06:25 Source: patient, EMS, RN notes reviewed Mode of arrival: EMS Limitations: no limitations - History of Present Illness Initial comments: This a 36-year-old male presents to the emergency Department with chief complai nt of nausea vomiting. Patient states he's been getting sick last few days. Patient did have recent ER visit for similar complaints. Patient states has a history of pancreatitis, ulcers from alcohol abuse. He states his been sober for at least 4-5 years. Patient denies any chest pain shortness breath fevers chills dysuria denies any melanotic stools, hematochezia. Patient states he thought he may have some blood in his emesis. Patient denies any other associated complaints. - Related Data Home Medications Medication Instructions Recorded Confirmed Omeprazole 20 mg PO DAILY 11/19/21 11/19/21 Previous Rx's Medication Instructions Recorded Ondansetron Odt [Zofran ODT] 4 mg PO Q8HR PRN #10 tab 11/18/21 Metoclopramide [Reglan] 10 mg PO TID PRN #15 tab 11/19/21 Omeprazole [PriLOSEC] 40 mg PO DAILY #14 cap 11/19/21 Sucralfate [Carafate] 1 gm PO BID #14 tab 11/19/21 Allergies Allergy/AdvReac Type Severity Reaction Status Date / Time No Known Allergies Allergy Verified 11/19/21 07:34 Review of Systems ROS Statement: Those systems with pertinent positive or pertinent negative responses have been documented in the HPI. ROS Other: All systems not noted in ROS Statement are negative. Past Medical History Past Medical History: No Reported History Additional Past Medical History / Comment(s): Stomach Ulcers History of Any Multi-Drug Resistant Organisms: None Reported Past Surgical History: Adenoidectomy Past Psychological History: No Psychological Hx Reported Smoking Status: Current every day smoker Past Alcohol Use History: None Reported Past Drug Use History: None Reported General Exam Limitations: no limitations General appearance: alert, in no apparent distress Head exam: Present: atraumatic, normocephalic, normal inspection Eye exam: Present: normal appearance, PERRL, EOMI. Absent: scleral icterus, conjunctival injection, periorbital swelling ENT exam: Present: normal exam, normal oropharynx, mucous membranes moist Neck exam: Present: normal inspection, full ROM. Absent: tenderness, meningismus, lymphadenopathy Respiratory exam: Present: normal lung sounds bilaterally. Absent: respiratory distress, wheezes, rales, rhonchi, stridor Cardiovascular Exam: Present: regular rate, normal rhythm, normal heart sounds. Absent: systolic murmur, diastolic murmur, rubs, gallop, clicks GI/Abdominal exam: Present: soft, tenderness, normal bowel sounds. Absent: distended, guarding, rebound, rigid Course Vital Signs 11/19/21 11/19/21 06:27 08:04 Temperature 97.5 F L Pulse Rate 74 91 Respiratory 20 18 Rate Blood Pressure 144/85 O2 Sat by Pulse 97 96 Oximetry Medical Decision Making - Medical Decision Making 36-year-old presents for nausea vomiting. Patient does not have any evidence of hematemesis. Patient does have an underlying gastritis, CT does not reveal any acute abnormality. Patient's pancreatic enzymes minimally elevated patient is well-hydrated will be discharged in stable condition return parameters were discussed. - Lab Data Result diagrams: 11/19/21 06:48 11/19/21 06:48 Lab Results 11/19/21 11/19/21 11/19/21 Range/Units 06:48 06:48 06:48 WBC 13.6 H (3.8-10.6) k/uL RBC 4.74 (4.30-5.90) m/uL Hgb 15.5 (13.0-17.5) gm/dL Hct 45.9 (39.0-53.0) % MCV 96.8 (80.0-100.0) fL MCH 32.7 (25.0-35.0) pg MCHC 33.8 (31.0-37.0) g/dL RDW 11.6 (11.5-15.5) % Plt Count 286 (150-450) k/uL MPV 7.5 Neutrophils % 81 % Lymphocytes % 9 % Monocytes % 8 % Eosinophils % 1 % Basophils % 1 % Neutrophils # 10.9 H (1.3-7.7) k/uL Lymphocytes # 1.2 (1.0-4.8) k/uL Monocytes # 1.1 H (0-1.0) k/uL Eosinophils # 0.1 (0-0.7) k/uL Basophils # 0.1 (0-0.2) k/uL Sodium 141 (137-145) mmol/L Potassium 3.8 (3.5-5.1) mmol/L Chloride 108 H (98-107) mmol/L Carbon Dioxide 20 L (22-30) mmol/L Anion Gap 13 mmol/L BUN 24 H (9-20) mg/dL Creatinine 0.77 (0.66-1.25) mg/dL Est GFR (CKD-EPI)AfAm >90 (>60 ml/min/1.73 sqM) Est GFR (CKD-EPI)NonAf >90 (>60 ml/min/1.73 sqM) Glucose 114 H (74-99) mg/dL Plasma Lactic Acid Jonathon 1.5 (0.7-2.0) mmol/L Calcium 9.7 (8.4-10.2) mg/dL Total Bilirubin 1.0 (0.2-1.3) mg/dL AST 31 (17-59) U/L ALT 20 (4-49) U/L Alkaline Phosphatase 57 (38-126) U/L Total Protein 7.9 (6.3-8.2) g/dL Albumin 4.7 (3.5-5.0) g/dL Amylase 218 H (30-110) U/L Lipase 533 H (23-300) U/L Serum Alcohol <10 mg/dL Disposition Clinical Impression: Nausea & vomiting, Gastritis Disposition: HOME SELF-CARE Condition: Stable Instructions (If sedation given, give patient instructions): Gastritis (ED) Additional Instructions: Please return to the Emergency Department if symptoms worsen or any other concerns. Prescriptions: Sucralfate [Carafate] 1 gm PO BID #14 tab Omeprazole [PriLOSEC] 40 mg PO DAILY #14 cap Metoclopramide [Reglan] 10 mg PO TID PRN #15 tab PRN Reason: Nausea Is patient prescribed a controlled substance at d/c from ED?: No Referrals: None,Stated [Primary Care Provider] - 1-2 days Time of Disposition: 09:05
[2021-11-19 08:09] VITALS: RESP 18
--- NOTE | 2021-11-19 08:18 | CT ---
EXAMINATION TYPE: CT abdomen pelvis w con DATE OF EXAM: 11/19/2021 COMPARISON: CT dated 10/10/2020 HISTORY: Vomiting blood, History of ulcers CT DLP: 616.5 mGycm Automated exposure control for dose reduction was used. TECHNIQUE: Helical acquisition of images was performed from the lung bases through the pelvis. CONTRAST: Performed without Oral Contrast and with IV Contrast, patient injected with 100 ml mL of Isovue 300. FINDINGS: LUNG BASES: No significant abnormality is appreciated. LIVER/GB: No significant abnormality is appreciated. PANCREAS: No significant abnormality is seen. SPLEEN: No significant abnormality is seen. ADRENALS: No significant abnormality is seen. KIDNEYS: No significant abnormality is seen. FREE AIR: No free air is visualized. RETROPERITONEAL ADENOPATHY: None visualized REPRODUCTIVE ORGANS: No significant abnormality is seen URINARY BLADDER: Nondistended. PELVIC ADENOPATHY: No pathologically enlarged pelvic lymph nodes. OSSEOUS STRUCTURES: No aggressive bone lesion. BOWEL: Grossly unremarkable stomach. Suboptimal assessment of the duodenum, small and large bowel du e to paucity of intra-abdominal fat and lack of oral contrast administration. No evidence of small or large bowel obstruction or gross abnormality. OTHER: Unremarkable abdominal aorta. No sizable ascites. IMPRESSION: No definite acute abnormality seen in the abdomen or the pelvis. No gross small or large bowel abnorm ality however mild acute abnormality can't be excluded by this CT scan.
[2021-11-19 09:14] VITALS: BP 149/81; PULSE 80; TEMP 97.9
== END 2021-11-19 09:14 | disposition home or self-care (01) ==
LOC: EC 06:24
DX: K29.70 Gastritis, unspecified, without bleeding (principal); F17.200 Nicotine dependence, unspecified, uncomplicated
CPT/HCPCS: 36415; 80053; 82150; 83605; 83690; 85025; 74177; 99284; 96374; 96375; 96361; G0480; J1200; J2765; C9113; Q9967; J1790; 80320

== ENCOUNTER 2021-11-20 23:20 | Emergency (ER) | payer OTHER ==
[2021-11-21] MEDS ORDERED: ONDANSETRON 4 MG/2 ML VIAL IVP STA ×2 (00:07→00:22)
[2021-11-21] MEDS ORDERED: SODIUM CHLORIDE 0.9% 1,000 ML IV STA (00:07)
[2021-11-21] MEDS ORDERED: diphenhydrAMINE 50 MG/ML 1 ML VIAL IVP STA (00:07)
[2021-11-21] MEDS ORDERED: KETOROLAC 15 MG/ML 1 ML VIAL IVP STA (00:18)
--- NOTE | 2021-11-21 00:19 | ED ---
Abdominal Pain HPI - General Stated Complaint: Back Pain Time Seen by Provider: 11/21/21 00:07 Source: patient, RN notes reviewed Mode of arrival: EMS Limitations: no limitations - History of Present Illness Initial Comments: This is a 36-year-old male who presents to the emergency department for low back pain. He slipped and fell when getting out of the shower this morning causing the pain. States that he always has back pain and that it is "hereditary". Denies any saddle anesthesia or loss of bowel/bladder control. While the patient was in the waiting room, he fell three times, and security went to sit next to him so he would not continue to fall. When he was no longer able to fall, he laid himself on the ground and yelled out "seizure", and he began to convulse. The staff performed a sternal rub and he came out of it immediately and began kicking his legs, suggesting this was a pseudoseizure. He then repeated this a second time, in order to get a room ahead of the other individuals in the waiting room. When the patient was put back in the room, he laid down and immediately went to bed. He was evaluated in the emergency department the last 2 days for nausea and vomiting. He had lab work and a computed tomography scan over the last two days, which were nonactionable. Patient is also putting his hand in his mouth to make himself vomit in the examination room and is now complaining of abdominal pain. Denies any fevers, chills, sore throat, cough, dyspnea, chest pain, palpitations, or headaches. MD Complaint: abdominal pain (and back pain) - Related Data Home Medications Medication Instructions Recorded Confirmed Omeprazole 20 mg PO DAILY 11/19/21 11/19/21 Previous Rx's Medication Instructions Recorded Ondansetron Odt [Zofran ODT] 4 mg PO Q8HR PRN #10 tab 11/18/21 Metoclopramide [Reglan] 10 mg PO TID PRN #15 tab 11/19/21 Omeprazole [PriLOSEC] 40 mg PO DAILY #14 cap 11/19/21 Sucralfate [Carafate] 1 gm PO BID #14 tab 11/19/21 Allergies Allergy/AdvReac Type Severity Reaction Status Date / Time No Known Allergies Allergy Verified 11/19/21 07:34 Review of Systems ROS Statement: Those systems with pertinent positive or pertinent negative responses have been documented in the HPI. ROS Other: All systems not noted in ROS Statement are negative. Past Medical History Past Medical History: No Reported History Additional Past Medical History / Comment(s): Stomach Ulcers History of Any Multi-Drug Resistant Organisms: None Reported Past Surgical History: Adenoidectomy Past Psychological History: No Psychological Hx Reported Smoking Status: Current every day smoker Past Alcohol Use History: None Reported Past Drug Use History: None Reported General Exam Limitations: no limitations General appearance: alert, in distress Head exam: Present: atraumatic, normocephalic, normal inspection Respiratory exam: Present: wheezes (left lower lobe). Absent: respiratory distress, rales, rhonchi, chest wall tenderness, accessory muscle use, decreased breath sounds, prolonged expiratory Cardiovascular Exam: Present: regular rate, normal rhythm, normal heart sounds. Absent: systolic murmur, diastolic murmur, rubs, gallop, clicks GI/Abdominal exam: Present: soft, normal bowel sounds. Absent: distended, tenderness, guarding, rebound, rigid Back exam: Present: other (Patient unwilling to sit up for examination due to pain. States that he is unable to move.) Neurological exam: Present: alert, oriented X3, CN II-XII intact Psychiatric exam: Present: normal affect, normal mood Skin exam: Present: warm, dry, intact, normal color. Absent: rash Course Vital Signs 11/21/21 11/21/21 00:12 01:38 Temperature 97.9 F Pulse Rate 73 74 Respiratory 16 Rate Blood Pressure 140/98 128/73 O2 Sat by Pulse 98 98 Oximetry Medical Decision Making - Medical Decision Making This is a 36-year-old male who presents to the emergency department for low back pain. Lab work was found to be improved from the prior 2 days and was otherwise nonactionable. Imaging revealed no acute abnormalities. Patient jumped out of bed as if he was in no pain and walked out of the emergency department comfortably upon discharge. Return precautions reviewed in depth, the patient is instructed to return to the emergency department with any new, worsening, or concerning symptoms. Patient verbalized understanding. This case was discussed in detail with the attending ED physician. Presentation, findings, and treatment plan discussed in detail as well. - Lab Data Result diagrams: 11/21/21 00:30 06/22/22 00:30 Lab Results 11/21/21 11/21/21 11/21/21 Range/Units 00:30 00:30 00:30 WBC 13.0 H (3.8-10.6) k/uL RBC 4.81 (4.30-5.90) m/uL Hgb 16.1 (13.0-17.5) gm/dL Hct 46.6 (39.0-53.0) % MCV 96.8 (80.0-100.0) fL MCH 33.4 (25.0-35.0) pg MCHC 34.5 (31.0-37.0) g/dL RDW 11.3 L (11.5-15.5) % Plt Count 264 (150-450) k/uL MPV 7.6 Neutrophils % 85 % Lymphocytes % 7 % Monocytes % 6 % Eosinophils % 1 % Basophils % 0 % Neutrophils # 11.1 H (1.3-7.7) k/uL Lymphocytes # 0.9 L (1.0-4.8) k/uL Monocytes # 0.8 (0-1.0) k/uL Eosinophils # 0.1 (0-0.7) k/uL Basophils # 0.1 (0-0.2) k/uL Sodium 140 (137-145) mmol/L Potassium 3.1 L (3.5-5.1) mmol/L Chloride 107 (98-107) mmol/L Carbon Dioxide 21 L (22-30) mmol/L Anion Gap 12 mmol/L BUN 19 (9-20) mg/dL Creatinine 0.84 (0.66-1.25) mg/dL Est GFR (CKD-EPI)AfAm >90 (>60 ml/min/1.73 sqM) Est GFR (CKD-EPI)NonAf >90 (>60 ml/min/1.73 sqM) Glucose 122 H (74-99) mg/dL Calcium 9.5 (8.4-10.2) mg/dL Total Bilirubin 1.2 (0.2-1.3) mg/dL AST 25 (17-59) U/L ALT 21 (4-49) U/L Alkaline Phosphatase 65 (38-126) U/L Troponin I <0.012 (0.000-0.034) ng/mL Total Protein 7.9 (6.3-8.2) g/dL Albumin 4.7 (3.5-5.0) g/dL Amylase 74 (30-110) U/L Lipase 87 (23-300) U/L Serum Alcohol <10 mg/dL - Radiology Data Radiology results: report reviewed, image reviewed Disposition Clinical Impression: Lower back pain Disposition: HOME SELF-CARE Instructions (If sedation given, give patient instructions): Acute Low Back Pain (ED) Additional Instructions: Return to the emergency department with any new, worsening, or concerning symptoms. Alternate with Tylenol and ibuprofen as needed for back pain. Become established with a primary care provider for management of ongoing symptoms. Several providers were listed on your discharge form. Is patient prescribed a controlled substance at d/c from ED?: No Referrals: None,Stated [Primary Care Provider] - 1-2 days Flakita Sargent MD [REFERRING] - 1-2 days Laura Treviño MD [STAFF PHYSICIAN] - 1-2 days Tanmay Betancur MD [STAFF PHYSICIAN] - 1-2 days Eduin Almaguer MD [STAFF PHYSICIAN] - 1-2 days Jessy Barrett MD [STAFF PHYSICIAN] - 1-2 days
[2021-11-21 00:21] VITALS: RESP 16; TEMP 97.9
[2021-11-21 00:47] LABS: Basophils # (A) 0.1 k/uL (0-0.2); Basophils % (A) 0 %; Eosinophils # (A) 0.1 k/uL (0-0.7); Eosinophils % (A) 1 %; HCT 46.6 % (39.0-53.0); HGB 16.1 gm/dL (13.0-17.5); Lymphocytes # (A) 0.9 k/uL (1.0-4.8); Lymphocytes % (A) 7 %; MCH 33.4 pg (25.0-35.0); MCHC 34.5 g/dL (31.0-37.0); MCV 96.8 fL (80.0-100.0); Mean Platelet Volume 7.6; Monocytes # (A) 0.8 k/uL (0-1.0); Monocytes % (A) 6 %; Neutrophils # (A) 11.1 k/uL (1.3-7.7); Neutrophils % (A) 85 %; Platelet Count 264 k/uL (150-450); RBC 4.81 m/uL (4.30-5.90); RDW 11.3 % (11.5-15.5)
[2021-11-21 01:01] LABS: ALT 21 U/L (4-49); AST 25 U/L (17-59); African American GFR (CKD) >90 (>60 ml/min/1.73 sqM); Albumin 4.7 g/dL (3.5-5.0); Alcohol <10 mg/dL; Alkaline Phosphatase 65 U/L (38-126); Amylase 74 U/L (30-110); Anion Gap 12 mmol/L; Blood Urea Nitrogen 19 mg/dL (9-20); Calcium 9.5 mg/dL (8.4-10.2); Carbon Dioxide 21 mmol/L (22-30); Chloride 107 mmol/L (98-107); Glucose 122 mg/dL (74-99); Lipase 87 U/L (23-300); Non-African American GFR(CKD) >90 (>60 ml/min/1.73 sqM); Potassium 3.1 mmol/L (3.5-5.1); Sodium 140 mmol/L (137-145); Total Bilirubin 1.2 mg/dL (0.2-1.3); Total Protein 7.9 g/dL (6.3-8.2)
--- NOTE | 2021-11-21 01:32 | XR ---
EXAM: XR Chest, 2 Views CLINICAL HISTORY: ITS.REASON XR Reason: Wheezing, shortness of breath TECHNIQUE: Frontal and lateral views of the chest. COMPARISON: No relevant prior studies available. FINDINGS: Lungs: No consolidation or mass. Pleural space: No effusion. Heart: No cardiomegaly. Bones/joints: No acute findings. IMPRESSION: No acute cardiopulmonary process.
--- NOTE | 2021-11-21 01:32 | XR ---
EXAM: XR Lumbosacral Spine, 2 or 3 Views CLINICAL HISTORY: ITS.REASON XR Reason: lower back pain after fall TECHNIQUE: Frontal and lateral views of the lumbar spine and sacrum. COMPARISON: No relevant prior studies available. FINDINGS: Vertebrae: No acute fracture. Normal sagittal alignment. Disc spaces: No significant narrowing. Soft tissues: Unremarkable. IMPRESSION: No acute findings.
[2021-11-21] MEDS ORDERED: POTASSIUM CHLORIDE ER 20 MEQ TAB.ER PO STA (01:36)
[2021-11-21 01:41] VITALS: BP 128/73; PULSE 74
== END 2021-11-21 01:43 | disposition home or self-care (01) ==
LOC: EC 23:20
DX: M54.50 Low back pain, unspecified (principal); F17.200 Nicotine dependence, unspecified, uncomplicated
CPT/HCPCS: 36415; 80053; 82150; 83690; 84484; 85025; 72100; 71046; 99284; 96374; 96375; G0480; J2405; J1885; 80320

== ENCOUNTER 2021-12-05 02:24 | Observation (INO) | payer OTHER ==
[2021-12-05 02:34] VITALS: RESP 20
[2021-12-05] MEDS ORDERED: SODIUM CHLORIDE 0.9% 1,000 ML IV STA ×2 (02:55→04:05)
[2021-12-05] MEDS ORDERED: diphenhydrAMINE 50 MG/ML 1 ML VIAL IVP STA (02:55)
[2021-12-05] MEDS ORDERED: PROCHLORPERAZINE INJ 10 MG/2 ML VIAL IVP STA (02:55)
[2021-12-05] MEDS ORDERED: ONDANSETRON 4 MG/2 ML VIAL IVP STA (02:55)
[2021-12-05] MEDS ORDERED: SODIUM CHLORIDE 0.9% 500 ML 500 ML IV STA (02:55)
--- NOTE | 2021-12-05 02:56 | ED ---
Recheck HPI - General Chief Complaint: Nausea/Vomiting/Diarrhea Stated Complaint: Abd Pain Time Seen by Provider: 12/05/21 02:26 Source: EMS, RN notes reviewed, old records reviewed Mode of arrival: EMS Limitations: no limitations - History of Present Illness Initial Comments: This is a 36-year-old male to the emergency department for evaluation patient presents today for evaluation regards to nausea vomiting. Patient is a poor strain secondary to clinical state, he is having persistent nausea vomiting arrival to the emergency room and arrives by EMS. Multiple ER visits recently for similar complaints. Patient is no travel history no sick contacts no fevers. MD Complaint: medication refill request -: hour(s) Returns Today for: Called Because of Abnormal Lab/Test, persistent/worsening pain related to initial visit Symptoms Since Prior Visit: worsening pain Context: planned re-check, called for abnormal lab result Associated Symptoms: nausea, abdominal pain Treatments Prior to Arrival: Given Pain Meds on - Related Data Home Medications Medication Instructions Recorded Confirmed Omeprazole 20 mg PO DAILY 11/19/21 11/19/21 Previous Rx's Medication Instructions Recorded Ondansetron Odt [Zofran ODT] 4 mg PO Q8HR PRN #10 tab 11/18/21 Metoclopramide [Reglan] 10 mg PO TID PRN #15 tab 11/19/21 Omeprazole [PriLOSEC] 40 mg PO DAILY #14 cap 11/19/21 Sucralfate [Carafate] 1 gm PO BID #14 tab 11/19/21 Allergies Allergy/AdvReac Type Severity Reaction Status Date / Time No Known Allergies Allergy Verified 11/19/21 07:34 Review of Systems ROS Statement: Those systems with pertinent positive or pertinent negative responses have been documented in the HPI. ROS Other: All systems not noted in ROS Statement are negative. Past Medical History Past Medical History: No Reported History Additional Past Medical History / Comment(s): Stomach Ulcers History of Any Multi-Drug Resistant Organisms: None Reported Past Surgical History: Adenoidectomy Past Psychological History: No Psychological Hx Reported Smoking Status: Current every day smoker Past Alcohol Use History: None Reported Past Drug Use History: None Reported General Exam Limitations: no limitations General appearance: alert, in no apparent distress Head exam: Present: atraumatic, normocephalic, normal inspection Eye exam: Present: normal appearance, PERRL, EOMI. Absent: scleral icterus, con junctival injection, periorbital swelling ENT exam: Present: normal exam, mucous membranes moist Neck exam: Present: normal inspection. Absent: tenderness, meningismus, lymphadenopathy Respiratory exam: Present: normal lung sounds bilaterally. Absent: respiratory distress, wheezes, rales, rhonchi, stridor Cardiovascular Exam: Present: normal rhythm, tachycardia, normal heart sounds. Absent: systolic murmur, diastolic murmur, rubs, gallop, clicks GI/Abdominal exam: Present: soft, normal bowel sounds. Absent: distended, tenderness, guarding, rebound, rigid Extremities exam: Present: normal inspection, full ROM, normal capillary refill. Absent: tenderness, pedal edema, joint swelling, calf tenderness Back exam: Present: normal inspection Neurological exam: Present: alert, oriented X3, CN II-XII intact Psychiatric exam: Present: normal mood, agitated, anxious Skin exam: Present: warm, dry, intact, normal color. Absent: rash Course Vital Signs 12/05/21 12/05/21 02:26 03:18 Pulse Rate 134 H 92 Respiratory 20 20 Rate Blood Pressure 126/97 129/83 O2 Sat by Pulse 97 98 Oximetry - Reevaluation(s) Reevaluation #1: 12/05/21 04:07 Medical record is reviewed Reevaluation #2: 12/05/21 04:07 Patient informed of results and questions answered Reevaluation #3: 12/05/21 04:07 She has no significant improvement here in the ER - Consultations Consultation #1: Spoke with sound physicians who agree to admit this patient Medical Decision Making - Medical Decision Making 36 male to the ER for evaluation patient presents today for evaluation regards to intractable nausea vomiting. Patient presents today for evaluation and treatment. Patient is found to be severely dehydrated and hypernatremic and will admit for IV resuscitation symptom control - Lab Data Result diagrams: 12/05/21 03:01 12/05/21 03:01 Lab Results 12/05/21 12/05/21 Range/Units 03:01 03:01 WBC 16.1 H (3.8-10.6) k/uL RBC 5.28 (4.30-5.90) m/uL Hgb 17.7 H (13.0-17.5) gm/dL Hct 51.8 (39.0-53.0) % MCV 98.1 (80.0-100.0) fL MCH 33.5 (25.0-35.0) pg MCHC 34.1 (31.0-37.0) g/dL RDW 12.0 (11.5-15.5) % Plt Count 438 (150-450) k/uL MPV 7.5 Neutrophils % 86 % Lymphocytes % 5 % Monocytes % 7 % Eosinophils % 0 % Basophils % 0 % Neutrophils # 13.9 H (1.3-7.7) k/uL Lymphocytes # 0.8 L (1.0-4.8) k/uL Monocytes # 1.1 H (0-1.0) k/uL Eosinophils # 0.0 (0-0.7) k/uL Basophils # 0.1 (0-0.2) k/uL Sodium 149 H (137-145) mmol/L Potassium 4.5 (3.5-5.1) mmol/L Chloride 110 H (98-107) mmol/L Carbon Dioxide 20 L (22-30) mmol/L Anion Gap 19 mmol/L BUN 20 (9-20) mg/dL Creatinine 1.21 (0.66-1.25) mg/dL Est GFR (CKD-EPI)AfAm 89 (>60 ml/min/1.73 sqM) Est GFR (CKD-EPI)NonAf 77 (>60 ml/min/1.73 sqM) Glucose 163 H (74-99) mg/dL Calcium 11.5 H (8.4-10.2) mg/dL Total Bilirubin 0.6 (0.2-1.3) mg/dL AST 32 (17-59) U/L ALT 35 (4-49) U/L Alkaline Phosphatase 110 (38-126) U/L Total Protein 9.6 H (6.3-8.2) g/dL Albumin 5.4 H (3.5-5.0) g/dL Amylase 77 (30-110) U/L Lipase 75 (23-300) U/L Serum Alcohol <10 mg/dL Disposition Clinical Impression: Intractable nausea and vomiting, Leukocytosis, Dehydration, Abdominal pain, Hypernatremia Disposition: ADMITTED IP TO THIS HOSP Condition: Fair Is patient prescribed a controlled substance at d/c from ED?: No Referrals: None,Stated [Primary Care Provider] - 1-2 days Time of Disposition: 04:00
[2021-12-05 03:14] LABS: Basophils # (A) 0.1 k/uL (0-0.2); Basophils % (A) 0 %; Eosinophils % (A) 0 %; HCT 51.8 % (39.0-53.0); HGB 17.7 gm/dL (13.0-17.5); Lymphocytes # (A) 0.8 k/uL (1.0-4.8); Lymphocytes % (A) 5 %; MCH 33.5 pg (25.0-35.0); MCHC 34.1 g/dL (31.0-37.0); MCV 98.1 fL (80.0-100.0); Mean Platelet Volume 7.5; Monocytes # (A) 1.1 k/uL (0-1.0); Monocytes % (A) 7 %; Neutrophils # (A) 13.9 k/uL (1.3-7.7); Neutrophils % (A) 86 %; Platelet Count 438 k/uL (150-450); RBC 5.28 m/uL (4.30-5.90); WBC 16.1 k/uL (3.8-10.6)
[2021-12-05] MEDS: SODIUM CHLORIDE 0.9% 1,000 ML IV STA ×2 (03:14→03:16)
[2021-12-05 03:20] VITALS: BP 129/83; PULSE 92
[2021-12-05 03:20] LABS: AST 32 U/L (17-59); African American GFR (CKD) 89 (>60 ml/min/1.73 sqM); Albumin 5.4 g/dL (3.5-5.0); Alcohol <10 mg/dL; Alkaline Phosphatase 110 U/L (38-126); Amylase 77 U/L (30-110); Anion Gap 19 mmol/L; Blood Urea Nitrogen 20 mg/dL (9-20); Calcium 11.5 mg/dL (8.4-10.2); Carbon Dioxide 20 mmol/L (22-30); Chloride 110 mmol/L (98-107); Glucose 163 mg/dL (74-99); Lipase 75 U/L (23-300); Non-African American GFR(CKD) 77 (>60 ml/min/1.73 sqM); Potassium 4.5 mmol/L (3.5-5.1); Sodium 149 mmol/L (137-145); Total Bilirubin 0.6 mg/dL (0.2-1.3); Total Protein 9.6 g/dL (6.3-8.2)
[2021-12-05 03:27] LABS: ALT 35 U/L (4-49)
[2021-12-05] MEDS ORDERED: ONDANSETRON 4 MG/2 ML VIAL IVP PRN (04:03)
[2021-12-05] MEDS ORDERED: MORPHINE SULFATE 4 MG/ML SYRINGE IV PRN (04:03)
[2021-12-05] MEDS ORDERED: NALOXONE 0.4 MG/ML 1 ML VIAL IV PRN (04:03)
[2021-12-05] MEDS ORDERED: PROCHLORPERAZINE INJ 10 MG/2 ML VIAL IVP PRN (04:03)
[2021-12-05] MEDS ORDERED: diphenhydrAMINE 50 MG/ML 1 ML VIAL IVP PRN (04:05)
[2021-12-05] MEDS ORDERED: SODIUM CHLORIDE 0.9% 1,000 ML IV SCH (04:15)
--- NOTE | 2021-12-05 04:51 | P.HPIM ---
History of Present Illness H&P Date: 12/05/21 The patient is a 36-year-old male with a PMH of EtOH abuse, marijuana abuse, alcoholic gastritis and pancreatitis who presents to the emergency room with complaints of intractable nausea and vomiting. The patient reports that his symptoms started earlier tonight, with nonbloody nonbilious emesis, with too many episodes to count. He reports 8 out of 10 abdominal pain at the time of interview. Denies diarrhea, fever, chills, chest pain, shortness of breath. Reports multiple prior episodes in the past. Of note, the patient is presented to the emergency room multiple times in the last 3 weeks for similar complaints. Laboratory evaluation was remarkable for WBC count 16.1, sodium 149, CO2 20, glucose 163, calcium 11.5, and serum alcohol level less than 10. CT abdomen and pelvis from prior presentation on 11/19 was reviewed when patient presented for similar complaints, and was unremarkable. Review of systems: Pertinent positives and negatives as discussed in HPI, a complete review of systems was performed and all other systems are negative. Physical examination: General: non toxic, no distress, appears older than stated age, normal weight Derm: no unusual rashes/lesions, warm Head: atraumatic, normocephalic, symmetric Eyes: EOMI, no lid lag, anicteric sclera, pupils equal round reactive to light ENT: Nose and ears atraumatic Neck: No cervical lymphadenopathy, trachea midline, supple Mouth: no lip lesion, mucus membranes dry Cardiovascular: S1S2 reg, no murmur, positive dorsalis pedis pulse bilateral, no edema Lungs: CTA bilateral, no rhonchi, no rales, no accessory muscle use Abdominal: Diffuse tenderness, some guarding Ext: muscle strength 5 out of 5 in all 4 extremities grossly, no gross muscle atrophy, no contractures, Neuro: CN II-XI grossly intact, no gross focal neuro deficits Psych: Lethargic, oriented, appropriate affect Assessment/plan Intractable nausea and vomiting, suspected cannabinoid hyperemesis -Antiemetics -Nothing by mouth for now -IV fluids -Monitor BMP -IV Protonix Hypernatremia, suspected secondary to intractable nausea and vomiting -Continue with IV fluids and monitor for now Hypercalcemia, suspected due to dehydration -Continue with IV hydration Leukocytosis, no signs of active infection at this time -Monitor for now DVT prophylaxis -Heparin subcu The patient is admitted with an anticipated less than 2 midnight stay for evaluation of intractable nausea and vomiting. CODE STATUS: Full Code Discussed with: Patient Anticipated discharge date: 12/[address]: Home Past Medical History Past Medical History: No Reported History Additional Past Medical History / Comment(s): Stomach Ulcers History of Any Multi-Drug Resistant Organisms: None Reported Past Surgical History: Adenoidectomy Past Psychological History: No Psychological Hx Reported Smoking Status: Current every day smoker Past Alcohol Use History: None Reported Past Drug Use History: None Reported - Past Family History Mother Family Medical History: Hypertension Medications and Allergies Home Medications Medication Instructions Recorded Confirmed Type Ondansetron Odt [Zofran ODT] 4 mg PO Q8HR PRN #10 tab 11/18/21 11/19/21 Rx Metoclopramide [Reglan] 10 mg PO TID PRN #15 tab 11/19/21 Rx Omeprazole 20 mg PO DAILY 11/19/21 11/19/21 History Omeprazole [PriLOSEC] 40 mg PO DAILY #14 cap 11/19/21 Rx Sucralfate [Carafate] 1 gm PO BID #14 tab 11/19/21 Rx Allergies Allergy/AdvReac Type Severity Reaction Status Date / Time No Known Allergies Allergy Verified 11/19/21 07:34 Physical Exam Vitals: Vital Signs Pulse Resp BP Pulse Ox 12/05/21 03:18 92 20 129/83 98 12/05/21 02:26 134 H 20 126/97 97 Intake and Output 12/04/21 12/04/21 12/05/21 14:59 22:59 06:59 Other: Weight 72.575 kg Results CBC & Chem 7: 12/05/21 03:01 12/05/21 03:01 Labs: Abnormal Lab Results - Last 24 Hours (Table) 12/05/21 12/05/21 Range/Units 03:01 03:01 WBC 16.1 H (3.8-10.6) k/uL Hgb 17.7 H (13.0-17.5) gm/dL Neutrophils # 13.9 H (1.3-7.7) k/uL Lymphocytes # 0.8 L (1.0-4.8) k/uL Monocytes # 1.1 H (0-1.0) k/uL Sodium 149 H (137-145) mmol/L Chloride 110 H (98-107) mmol/L Carbon Dioxide 20 L (22-30) mmol/L Glucose 163 H (74-99) mg/dL Calcium 11.5 H (8.4-10.2) mg/dL Total Protein 9.6 H (6.3-8.2) g/dL Albumin 5.4 H (3.5-5.0) g/dL
[2021-12-05] MEDS ORDERED: HEPARIN SODIUM,PORCINE/PF 5,000 UNIT/0.5 ML SYRINGE SQ SCH (08:00)
[2021-12-05] MEDS ORDERED: PANTOPRAZOLE 40 MG/10 ML VIAL IV SCH (09:00)
--- NOTE | 2021-12-05 17:47 | P.DS ---
Providers Date of admission: 12/05/21 04:03 Expected date of discharge: 12/05/21 Attending physician: Elizabeth Monson MD Consults: 12/05/21 04:19 Consult Physician Routine Consulting Provider: Isauro Hernandez Consult Reason/Comments: psych Do you want consulting provider notified?: Yes Primary care physician: Stated None Hospital Course: Patient was seen and evaluated by nighttime provider this morning at 4:51 AM. He was admitted secondary to reports of intractable nausea and vomiting with suspected cannabinoid hyperemesis syndrome. However it is documented in the chart that patient left AGAINST MEDICAL ADVICE at 5:22 AM. Vimal Abraham NP rendered care for this patient independently, reviewed the findings and plan as documented in the note above. I did not physically speak with or examine the patient on this date. Patient Condition at Discharge: Undetermined Plan - Discharge Summary New Discharge Prescriptions: No Action Sucralfate [Carafate] 1 gm PO BID #14 tab Metoclopramide [Reglan] 10 mg PO TID PRN #15 tab PRN Reason: Nausea Ondansetron Odt [Zofran ODT] 4 mg PO Q8HR PRN #10 tab PRN Reason: Nausea Omeprazole 20 mg PO DAILY Omeprazole [PriLOSEC] 40 mg PO DAILY #14 cap Discharge Medication List Ondansetron Odt [Zofran ODT] 4 mg PO Q8HR PRN #10 tab 11/18/21 [Rx] Metoclopramide [Reglan] 10 mg PO TID PRN #15 tab 11/19/21 [Rx] Omeprazole 20 mg PO DAILY 11/19/21 [History] Omeprazole [PriLOSEC] 40 mg PO DAILY #14 cap 11/19/21 [Rx] Sucralfate [Carafate] 1 gm PO BID #14 tab 11/19/21 [Rx] Follow up Appointment(s)/Referral(s): None,Stated [Primary Care Provider] - 1-2 days Discharge Disposition: Left Against Medical Advice
== END 2021-12-05 05:27 | disposition left against medical advice (07) ==
LOC: EC 02:24 → 6NMEDSUR 04:03
PROVIDERS: ADMIT Internal Medicine; ATTEND Internal Medicine
DX: R11.2 Nausea with vomiting, unspecified (principal); R10.9 Unspecified abdominal pain; R19.7 Diarrhea, unspecified; D72.829 Elevated white blood cell count, unspecified; E86.0 Dehydration; Z53.29 Procedure and treatment not carried out because of patient's decision for other reasons; E87.0 Hyperosmolality and hypernatremia; E83.52 Hypercalcemia; F10.10 Alcohol abuse, uncomplicated; F12.10 Cannabis abuse, uncomplicated; K29.20 Alcoholic gastritis without bleeding; K85.90 Acute pancreatitis without necrosis or infection, unspecified; Z87.11 Personal history of peptic ulcer disease; F17.200 Nicotine dependence, unspecified, uncomplicated; Z79.899 Other long term (current) drug therapy; Z82.49 Family history of ischemic heart disease and other diseases of the circulatory system
CPT/HCPCS: 96376; 96361; 96374; 96375; 99285; 36415; 80053; 82150; 83690; 85025; G0378; G0480; J1200; J0780; J3360; J2405; 80320

== ENCOUNTER 2021-12-06 11:49 | Inpatient (IN) | payer OTHER ==
[2021-12-06] MEDS ORDERED: MORPHINE SULFATE 4 MG/ML SYRINGE IV STA (12:07)
[2021-12-06] MEDS ORDERED: SODIUM CHLORIDE 0.9% 1,000 ML IV STA (12:07)
[2021-12-06] MEDS ORDERED: diphenhydrAMINE 50 MG/ML 1 ML VIAL IVP STA (12:07)
[2021-12-06] MEDS ORDERED: ONDANSETRON ODT 8 MG TAB.RAPDIS PO STA (12:07)
[2021-12-06] MEDS: SODIUM CHLORIDE 0.9% 1,000 ML IV STA ×4 (12:10→16:46)
[2021-12-06] MEDS ORDERED: ONDANSETRON 4 MG/2 ML VIAL IVP STA (12:20)
[2021-12-06 12:29] LABS: Basophils # (A) 0.1 k/uL (0-0.2); Basophils % (A) 0 %; Eosinophils # (A) 0.1 k/uL (0-0.7); Eosinophils % (A) 0 %; HGB 16.8 gm/dL (13.0-17.5); Lymphocytes # (A) 1.3 k/uL (1.0-4.8); Lymphocytes % (A) 7 %; MCH 34.1 pg (25.0-35.0); MCHC 33.6 g/dL (31.0-37.0); MCV 101.3 fL (80.0-100.0); Mean Platelet Volume 7.6; Monocytes # (A) 0.9 k/uL (0-1.0); Monocytes % (A) 5 %; Neutrophils # (A) 16.9 k/uL (1.3-7.7); Neutrophils % (A) 87 %; Platelet Count 370 k/uL (150-450); RBC 4.93 m/uL (4.30-5.90); RDW 12.1 % (11.5-15.5); WBC 19.4 k/uL (3.8-10.6)
[2021-12-06 12:35] LABS: Partial Thromboplastin Time 26.7 sec (22.0-30.0); Prothrombin Time 10.7 sec (9.0-12.0)
[2021-12-06 12:36] LABS: AST 33 U/L (17-59); African American GFR (CKD) >90 (>60 ml/min/1.73 sqM); Alcohol <10 mg/dL; Alkaline Phosphatase 89 U/L (38-126); Amylase 76 U/L (30-110); Anion Gap 18 mmol/L; Blood Urea Nitrogen 28 mg/dL (9-20); Calcium 10.2 mg/dL (8.4-10.2); Carbon Dioxide 16 mmol/L (22-30); Chloride 110 mmol/L (98-107); Glucose 120 mg/dL (74-99); Lipase 56 U/L (23-300); Non-African American GFR(CKD) 86 (>60 ml/min/1.73 sqM); Potassium 3.9 mmol/L (3.5-5.1); Sodium 144 mmol/L (137-145); Total Bilirubin 0.8 mg/dL (0.2-1.3)
--- NOTE | 2021-12-06 12:40 | CT ---
EXAMINATION TYPE: CT brain edsonine wo con DATE OF EXAM: 12/06/2021 COMPARISON: 10/10/2020 HISTORY: AMS CT DLP: 1447.6 mGycm, Automated exposure control for dose reduction was used. CONTRAST: Patient injected with 0 mL of Isovue 300. CT of the brain is performed utilizing 3 mm thick sections through the posterior fossa and 3 mm thick sections through the remaining calvarium. Study is performed within 24 hours of arrival to the hospital. No abnormal hyperdensity is present to suggest an acute intracranial hemorrhage. No mass lesion is evident. No acute infarcts are evident. Ventricles and sulci are appropriate for the patient age. Paranasal sinuses and mastoid air cells within the [id number] are clear. IMPRESSIONS: 1. No suspicious acute intracranial changes. Follow-up MRI can be performed as clinically indicated. CT cervical spine. COMPARISON: None CT of the cervical spine is performed in the axial plane at 2 mm thick sections. Reconstructed image s in the coronal, and sagittal plane are reviewed on the computer. No acute fractures are evident. Vertebral body alignment is normal. Disc heights are preserved. Prevertebral space is normal. Posterior spinal lamellar line appears inta ct. Vertebral body heights are preserved. No spinal canal stenosis is evident. No neural foraminal stenosis is evident. IMPRESSIONS: 1. Unremarkable CT cervical spine.
[2021-12-06] MEDS ORDERED: levETIRAcetam IV 2,000 MG in SODIUM CHLORIDE 0.9% 250 ML IVPB ONE (12:46)
[2021-12-06 12:47] LABS: ALT 31 U/L (4-49)
[2021-12-06] MEDS ORDERED: VANCOMYCIN IV PER PHARMACY 1 EACH MISC MISCELLANE PRN (13:10)
[2021-12-06] MEDS ORDERED: LACTATED RINGERS 1,000 ML IV ONE (13:12)
[2021-12-06] MEDS ORDERED: LACTATED RINGERS 1,000 ML IV SCH (13:15)
[2021-12-06] MEDS ORDERED: VANCOMYCIN 1,000 MG in SODIUM CHLORIDE 0.9% 250 ML IVPB STA (13:19)
--- NOTE | 2021-12-06 13:34 | CT ---
EXAMINATION TYPE: CT abdomen pelvis w con DATE OF EXAM: 12/06/2021 COMPARISON: 11/19/2021 INDICATION: Nausea, Vomitting and diffuse abdominal pain DLP: 625 mGycm, Automated exposure control for dose reduction was used. CONTRAST: 70 ml mL of Isovue 300. Study performed without Oral Contrast TECHNIQUE: Axial images were obtained from above the diaphragm to the pubic rami in the axial plane a t 5 mm thick sections. Reconstructed images are reviewed on the computer in the coronal plane. FINDINGS: Limited CT sections are obtained the lung bases. The lung bases are clear. CT ABDOMEN: Liver: Normal Spleen: Normal Pancreas: Normal Adrenal glands: The adrenal glands are normal. Gallbladder: Normal Kidneys: No masses are evident. No hydronephrosis is present. No cysts are present. Aorta: Normal Inferior vena cava: Normal. CT PELVIS: Loops of bowel within the abdomen and pelvis are normal. Study is lateral contrast limiting bowel evaluation. Appendix: Not visualized. No dilated tubular structure or inflammatory change is evident. Urinary bladder: Decompressed and cannot be evaluated Genitourinary structures: Prostate is normal Osseous structures: No suspicious lytic or sclerotic lesions. IMPRESSIONS: 1. Unremarkable CT abdomen and pelvis. No suspicious abnormality complications symptoms
[2021-12-06] MEDS ORDERED: NALOXONE 0.4 MG/ML 1 ML VIAL IV PRN ×2 (13:44→17:17)
[2021-12-06] MEDS ORDERED: ONDANSETRON 4 MG/2 ML VIAL IVP PRN (13:44)
--- NOTE | 2021-12-06 13:50 | ED ---
General Adult HPI - General Chief complaint: Seizure Stated complaint: seizure Time Seen by Provider: 12/06/21 12:06 Source: patient, family, RN notes reviewed, old records reviewed Mode of arrival: wheelchair Limitations: altered mental status - History of Present Illness Initial comments: Patient is a 36-year-old male with past medical history remarkable for intractable nausea and vomiting, possible seizure disorder, marijuana use, was admitted yesterday for suspected marijuana hyperemesis syndrome. However patient left AMA. He returns today over concern for continued nausea and vomiting as well as potential seizure. Patient presents with a significant other or friend. They stated that they were out today when the patient laid on the ground and may have had a seizure. Unknown how long this lasted for. They came in to walk in triage. Patient himself on the ground in triage began shaking uncontrollably. He was brought back to the trauma bay for further evaluation. When I was notified, patient had suddenly stopped shaking, sat up a nd began throwing up. He filled nearly an entire basin full of nonbilious nonbloody emesis. I spoke with him, he seems reluctant to respond but was stating that he had generalized abdominal pain. Denied alcohol use today. States he was hit he has a history of seizures but is very poor historian overall. Denies chest pain or shortness of breath. Denies sick contacts. Denies diarrhea. 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 Patient's family member also states that he has intermittently had episodes of bloody emesis and bloody diarrhea but none recently. Presents for further evaluation at this time. - Related Data Home Medications Medication Instructions Recorded Confirmed Naproxen [Naprosyn] 500 mg PO BID-W/MEALS 12/06/21 12/06/21 Previous Rx's Medication Instructions Recorded Ondansetron Odt [Zofran ODT] 4 mg PO Q8HR PRN #10 tab 11/18/21 Metoclopramide [Reglan] 10 mg PO TID PRN #15 tab 11/19/21 Omeprazole [PriLOSEC] 40 mg PO DAILY #14 cap 11/19/21 Sucralfate [Carafate] 1 gm PO BID #14 tab 11/19/21 Allergies Allergy/AdvReac Type Severity Reaction Status Date / Time No Known Allergies Allergy Verified 11/19/21 07:34 Review of Systems ROS Statement: Those systems with pertinent positive or pertinent negative responses have been documented in the HPI. Review of Systems: CONST: Denies fever EYES: Denies blurry vision ENT: Denies nasal congestion C/V: Denies Chest pain RESP: Denies shortness of breath GI: Endorses abdominal pain : Denies dysuria SKIN: Denies rash. MSK: Denies joint pain. NEURO: Denies headache ROS Other: All systems not noted in ROS Statement are negative. Past Medical History Past Medical History: No Reported History Additional Past Medical History / Comment(s): Stomach Ulcers History of Any Multi-Drug Resistant Organisms: None Reported Past Surgical History: Adenoidectomy Past Psychological History: No Psychological Hx Reported Smoking Status: Current every day smoker Past Alcohol Use History: None Reported Past Drug Use History: None Reported - Past Family History Mother Family Medical History: Hypertension General Exam - General Exam Comments Initial Comments: General: He is having active nonbilious nonbloody emesis. HEAD: Normal with no signs of head trauma. EYES: PERRLA, EOMI, conjunctiva normal, no discharge. ENT: Hearing grossly intact, normal oropharynx. Dry mucous membranes. RESPIRATORY: Clear breath sounds bilaterally. No wheezes, rales, or rhonchi. C/V: Tachycardic with a regular rhythm. S1 and S2 auscultated. No peripheral edema. Peripheral pulses 2+ intact throughout. ABD: Abdomen is soft, nondistended. Generalized tenderness to palpation throughout. No guarding. No peritoneal signs. No rebound tenderness. EXT: Normal range of motion, no obvious deformity SKIN: No rashes or lesions observed on exposed skin. NEURO: Alert and oriented 4. Moving all 4 extremities. No obvious deficits. GCS is 15. NIH appears to be 0. Limitations: altered mental status Course Vital Signs 12/06/21 12/06/21 11:54 14:01 Temperature 98.2 F 98.4 F Pulse Rate 130 H 94 Respiratory 16 16 Rate Blood Pressure 137/104 94/57 O2 Sat by Pulse 96 Oximetry Procedures - Sepsis Sepsis Focused Exam #1 Time Sepsis Criteria Met: 13:00 Sepsis Focused Exam Date: 12/06/21 Sepsis Focused Exam Time: 15:30 Sepsis Focused Exam Complete: Yes Vital Signs & RN Notes Reviewed: Yes Capillary Refill: < 2 Seconds: Fingers, Toes Peripheral Pulses: Normal: Radial (R), Radial (L) Skin Color: Normal for Patient Respiratory Exam: normal lung sounds Cardiovascular Exam: regular rate, normal rhythm Medical Decision Making - Medical Decision Making Based on the patient's presentation and physical exam, patient appears to have possibly had a seizure prior to arrival. Also may have fallen. History is somewhat unclear. Did leave AMA yesterday after persistent intractable nausea and vomiting. Seems to be experiencing that as well today. We'll obtain a broad workup including lactic acid, blood cultures, basic laboratory studies. Chest x-ray will be obtained. We'll also obtain CT of the head, C-spine, abdomen and pelvis. Patient was in agreement this plan. Will be symptomatically treated with antibiotics as well as IV fluids. I was notified that the patient was once again seizing. When I walked into the room, patient did have tonic-clonic jerking motions, but seemed generalize, however extinguishable. Patiently grunted when I said his name. I sternal rubbed the patient, and seizing stopped the and immediately woke up. Based on this, I do believe he may be experiencing pseudoseizures, however we will cover him just in case with a bolus of Keppra as well as 2 mg of IV Ativan. Patient was in agreement this plan. He was moving all 4 extremities prior to the Ativan. Has been sleepy since receiving Ativan. Vital signs remained within normal limits except for the tachycardia which is improving. Chest x-ray reveals no signs of acute cardio primary process. CT head and C- spine revealed no acute process or injury. Abdomen pelvis CT revealed no acute intra-abdominal process. Laboratory studies are remarkable for a leukocytosis of 19.4 which I suspect may be related to dehydration versus possible infectious etiology. Patient has a metabolic acidosis with an anion gap of 18 and bicarb of 16. This is likely secondary to lactic acidosis with a lactic acid of 7.4. Alcohol level is unremarkable. Urine studies are still pending at this time. Based on the elevated lactic acid and leukocytosis in addition to the initial presenting tachycardia, cannot rule out infectious etiology at this time. He does meet sepsis criteria at approximately 1300. He was started on broad-spectrum antibiotics. Repeat lactic acid will be obtained. Patient has received a liter of IV fluids and received an additional liter and started on 130 mL/h maintenance infusion to meet the requirement 30 mL per KG. On reevaluation, patient is sleepy but arousable. Able to follow basic commands and instructions. I would like to admit him to the hospital. He was in agreement this plan. Patient's repeat lactic acid is 1.1. EKG shows no signs of acute ischemia. I discussed the case with the admitting team, Dr. Huff who was in agreement this plan. I consulted neurology for evaluation of the patient. Patient is an overall unreliable and poor historian. Vital signs remained improved at this time. Patient was therefore admitted in stable condition. - Lab Data Result diagrams: 12/06/21 12:12 12/06/21 12:12 Lab Results 12/06/21 12/06/21 12/06/21 Range/Units 12:10 12:12 12:12 WBC 19.4 H (3.8-10.6) k/uL RBC 4.93 (4.30-5.90) m/uL Hgb 16.8 (13.0-17.5) gm/dL Hct 50.0 (39.0-53.0) % MCV 101.3 H (80.0-100.0) fL MCH 34.1 (25.0-35.0) pg MCHC 33.6 (31.0-37.0) g/dL RDW 12.1 (11.5-15.5) % Plt Count 370 (150-450) k/uL MPV 7.6 Neutrophils % 87 % Lymphocytes % 7 % Monocytes % 5 % Eosinophils % 0 % Basophils % 0 % Neutrophils # 16.9 H (1.3-7.7) k/uL Lymphocytes # 1.3 (1.0-4.8) k/uL Monocytes # 0.9 (0-1.0) k/uL Eosinophils # 0.1 (0-0.7) k/uL Basophils # 0.1 (0-0.2) k/uL PT 10.7 (9.0-12.0) sec INR 1.0 (<1.2) APTT 26.7 (22.0-30.0) sec Sodium (137-145) mmol/L Potassium (3.5-5.1) mmol/L Chloride (98-107) mmol/L Carbon Dioxide (22-30) mmol/L Anion Gap mmol/L BUN (9-20) mg/dL Creatinine (0.66-1.25) mg/dL Est GFR (CKD-EPI)AfAm (>60 ml/min/1.73 sqM) Est GFR (CKD-EPI)NonAf (>60 ml/min/1.73 sqM) Glucose (74-99) mg/dL Lactic Ac Sepsis Rflx Plasma Lactic Acid Jnoathon (0.7-2.0) mmol/L Calcium (8.4-10.2) mg/dL Total Bilirubin (0.2-1.3) mg/dL AST (17-59) U/L ALT (4-49) U/L Alkaline Phosphatase (38-126) U/L Total Protein (6.3-8.2) g/dL Albumin (3.5-5.0) g/dL Amylase (30-110) U/L Lipase (23-300) U/L Serum Alcohol mg/dL Blood Type Blood Type Confirm O Positive Blood Type Recheck Bld Type Recheck Status Antibody Screen Spec Expiration Date 12/06/21 12/06/21 12/06/21 Range/Units 12:12 12:12 12:15 WBC (3.8-10.6) k/uL RBC (4.30-5.90) m/uL Hgb (13.0-17.5) gm/dL Hct (39.0-53.0) % MCV (80.0-100.0) fL MCH (25.0-35.0) pg MCHC (31.0-37.0) g/dL RDW (11.5-15.5) % Plt Count (150-450) k/uL MPV Neutrophils % % Lymphocytes % % Monocytes % % Eosinophils % % Basophils % % Neutrophils # (1.3-7.7) k/uL Lymphocytes # (1.0-4.8) k/uL Monocytes # (0-1.0) k/uL Eosinophils # (0-0.7) k/uL Basophils # (0-0.2) k/uL PT (9.0-12.0) sec INR (<1.2) APTT (22.0-30.0) sec Sodium 144 (137-145) mmol/L Potassium 3.9 (3.5-5.1) mmol/L Chloride 110 H (98-107) mmol/L Carbon Dioxide 16 L (22-30) mmol/L Anion Gap 18 mmol/L BUN 28 H (9-20) mg/dL Creatinine 1.11 (0.66-1.25) mg/dL Est GFR (CKD-EPI)AfAm >90 (>60 ml/min/1.73 sqM) Est GFR (CKD-EPI)NonAf 86 (>60 ml/min/1.73 sqM) Glucose 120 H (74-99) mg/dL Lactic Ac Sepsis Rflx Plasma Lactic Acid Jonathon 7.4 H* (0.7-2.0) mmol/L Calcium 10.2 (8.4-10.2) mg/dL Total Bilirubin 0.8 (0.2-1.3) mg/dL AST 33 (17-59) U/L ALT 31 (4-49) U/L Alkaline Phosphatase 89 (38-126) U/L Total Protein 9.0 H (6.3-8.2) g/dL Albumin 5.0 (3.5-5.0) g/dL Amylase 76 (30-110) U/L Lipase 56 (23-300) U/L Serum Alcohol <10 mg/dL Blood Type O Positive Blood Type Confirm Blood Type Recheck No Previous Record Bld Type Recheck Status CABO Indicated Antibody Screen NEGATIVE Spec Expiration Date 12/09/2021231412/06/21 Range/Units 12:36 WBC (3.8-10.6) k/uL RBC (4.30-5.90) m/uL Hgb (13.0-17.5) gm/dL Hct (39.0-53.0) % MCV (80.0-100.0) fL MCH (25.0-35.0) pg MCHC (31.0-37.0) g/dL RDW (11.5-15.5) % Plt Count (150-450) k/uL MPV Neutrophils % % Lymphocytes % % Monocytes % % Eosinophils % % Basophils % % Neutrophils # (1.3-7.7) k/uL Lymphocytes # (1.0-4.8) k/uL Monocytes # (0-1.0) k/uL Eosinophils # (0-0.7) k/uL Basophils # (0-0.2) k/uL PT (9.0-12.0) sec INR (<1.2) APTT (22.0-30.0) sec Sodium (137-145) mmol/L Potassium (3.5-5.1) mmol/L Chloride (98-107) mmol/L Carbon Dioxide (22-30) mmol/L Anion Gap mmol/L BUN (9-20) mg/dL Creatinine (0.66-1.25) mg/dL Est GFR (CKD-EPI)AfAm (>60 ml/min/1.73 sqM) Est GFR (CKD-EPI)NonAf (>60 ml/min/1.73 sqM) Glucose (74-99) mg/dL Lactic Ac Sepsis Rflx Y Plasma Lactic Acid Jonathon (0.7-2.0) mmol/L Calcium (8.4-10.2) mg/dL Total Bilirubin (0.2-1.3) mg/dL AST (17-59) U/L ALT (4-49) U/L Alkaline Phosphatase (38-126) U/L Total Protein (6.3-8.2) g/dL Albumin (3.5-5.0) g/dL Amylase (30-110) U/L Lipase (23-300) U/L Serum Alcohol mg/dL Blood Type Blood Type Confirm Blood Type Recheck Bld Type Recheck Status Antibody Screen Spec Expiration Date - EKG Data -: EKG Interpreted by Me EKG Comments: 12-lead Electrocardiogram Interpretation Note EKG was reviewed and interpreted by myself. 12-lead ECG performed at 1528 is interpreted by me as revealing normal sinus rhythm at a rate of 75 beats per minute. [place] has rightward deviation. SC interval is 105 ms, QRS duration is 96 ms, QTc is 447 ms.. There were no ST or T wave abnormalities to suggest myocardial ischemia or injury. R wave progression across the precordium was satisfactory. By my interpretation this EKG is non-diagnostic for acute ischemia. Critical Care Time Critical Care Time: Yes Total Critical Care Time: 35 Critical Care Time: Upon my evaluation, this patient had a high probability of imminent or life- threatening deterioration due to sepsis, intractable nausea and vomiting, intractable abdominal pain, seizure versus pseudoseizure, which required my direct attention, intervention, and personal management. I have personally provided 35 minutes of critical care time exclusive of time spent on separately billable procedures. Time includes review of laboratory data, radiology results, discussion with consultants, and monitoring for potential decompensation. Interventions were performed as documented in my note. Disposition Clinical Impression: Pseudoseizure, Nausea and vomiting, Abdominal pain, Sepsis, Dehydration, Lactic acidosis, Metabolic acidosis Disposition: ADMITTED IP TO THIS [facility] Condition: Stable Time of Disposition: 13:45
--- NOTE | 2021-12-06 13:57 | XR ---
EXAMINATION TYPE: XR chest 1V portable DATE OF EXAM: 12/06/2021 COMPARISON: 11/21/2021 INDICATION: Abdomen pain TECHNIQUE: Single frontal view of the chest is obtained. FINDINGS: The heart size is normal. The pulmonary vasculature is normal. The lungs are clear. IMPRESSION: 1. No acute pulmonary process.
[2021-12-06] MEDS ORDERED: CEFEPIME 2 GM in SODIUM CHLORIDE 0.9% 100 ML IVPB SCH (14:00)
--- NOTE | 2021-12-06 15:29 | P.CNNES ---
History of Present Illness Consult date: 12/06/21 Requesting physician: Hernandez Navas Reason for Consult: seizure vs pseudoseizure History of Present Illness: This is a 36-year-old gentleman who presented emergency department who presented to the emergency department for abdominal pain with nausea and vomiting. Neurology is consulted for seizure vs pseudoseizure. Was hard to obtain the history from the patient the patient stated that he is here because of abdominal pain with nausea and vomiting. He stated that he has a seizure-like activity today and he had one couple months ago and he is on any medication. He denies of any alcohol use for a long period of time now. Per the ED physician and he stated that the patient had episodes where he was shaken but it seems suture like seizures to him. And watch was not consistent and he was able to wake up drastically as well as exam was inconsistent. Patient received 2 mg of Ativan in our ED and received 2 g of IV Keppra loading dose for suspected possible seizure. Patient could not tell me if he has seizure as a child. Patient smokes cigarettes. Of note is seems that the patient had numerous ED visits for nausea vomiting with abdominal pain. 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 One of the ED notes stated that the patient was inducing vomiting on himself. Some of the workup in our facility consisted of: Patient has been afebrile Initial plasma lactate acetate is 7.4, BUN is 28, initial serum glucose is 120, Initial white blood cell is 19.[address] of the head is reported as no suspicious acute intracranial changes. Follow up MRI can be performed as clinically indicated. I personally reviewed CT of the head and I agree with the report CT cervical spine is reported as unremarkable. Review of Systems Review of system: The 12 point system was reviewed and apparent positive and negative per HPI. Past Medical History Past Medical History: No Reported History Additional Past Medical History / Comment(s): Stomach Ulcers History of Any Multi-Drug Resistant Organisms: None Reported Past Surgical History: Adenoidectomy Past Psychological History: No Psychological Hx Reported Smoking Status: Current every day smoker Past Alcohol Use History: None Reported Past Drug Use History: None Reported - Past Family History Mother Family Medical History: Hypertension Medications and Allergies Home Medications Medication Instructions Recorded Confirmed Type Ondansetron Odt [Zofran ODT] 4 mg PO Q8HR PRN #10 tab 11/18/21 12/06/21 Rx Metoclopramide [Reglan] 10 mg PO TID PRN #15 tab 11/19/21 12/06/21 Rx Omeprazole [PriLOSEC] 40 mg PO DAILY #14 cap 11/19/21 12/06/21 Rx Sucralfate [Carafate] 1 gm PO BID #14 tab 11/19/21 12/06/21 Rx Naproxen [Naprosyn] 500 mg PO BID-W/MEALS 12/06/21 12/06/21 History Allergies Allergy/AdvReac Type Severity Reaction Status Date / Time No Known Allergies Allergy Verified 11/19/21 07:34 Physical Examination - Vital Signs Vital Signs: Vital Signs Temp Pulse Resp BP Pulse Ox 12/06/21 14:01 98.4 F 94 16 94/57 12/06/21 11:54 98.2 F 130 H 16 137/104 96 Intake and Output 12/05/21 12/06/21 12/06/21 22:59 06:59 14:59 Other: Weight 60.781 kg GENERAL: The patient is lying in bed and is not in acute distress. Appears much older than his age. HENT: Supple neck CHEST: The heart rate is regular rate rhythm. No murmurs to auscultation. . LUNG: Clear to auscultation bilaterally no wheezing noted throughout. Not labored breathing. ABDOMEN/GI: Bowel sounds present in all 4 quadrants. No tenderness to palpation throughout. NEUROLOGICAL: Limited because of his cooperation. Also received 2mg Ativan. Higher mental function: The patient is drowsy but is briefly awakeable. He is oriented to self and time. He states he is in the hospital. Patient is following few simple commands. No aphasia and no neglect from limited examination. Cranial nerves: The pupils are round, equal and reactive to light. No facial weakness. No dysarthria. No tongue bite and moving tongue side to side without difficulty. Motor: The strength is hard to assess individual muscles and moving all extremities above gravity. Normal tone and bulk. Cerebellum: Unable to assess. Sensation: Unable to assess. Reflexes (right/left): 2+ throughout. Plantars are downgoing bilaterally. Results - Laboratory Findings CBC and BMP: 12/06/21 12:12 12/06/21 12:12 Abnormal Lab Findings: Abnormal Labs 12/06/21 12/06/21 12/06/21 12:12 12:12 12:12 WBC 19.4 H MCV 101.3 H Neutrophils # 16.9 H Chloride 110 H Carbon Dioxide 16 L BUN 28 H Glucose 120 H Plasma Lactic Acid Jonathon 7.4 H* Total Protein 9.0 H Assessment and Plan Assessment: Seizure-like activity. ED team felt more like pseudo-seizure Acute on chronic emisis, vomiting with abdominal pain (had multiple ED physician for the same complaint) Leukocytosis, emisis and slightly elevated glucose and BUN seems reactive due to his recurrent vomiting History of reported seizure (few months ago) and not on antiepileptic drug Encephalopathy possible due to metabolic encephalopathy and ?seizure and medi cation induced (Ativan) History of Chronic pancreatitis History of Alcohol use and reported sober 4-5 years ago History of ulcer Nicotine use Marijuana use Plan: In the ED the patient was given Keppra 2 g once and 2mg of Ativan I started the patient on Keppra 500 mg every 12 hours I ordered an urgent EEG which will not happen until tomorrow since there is no EEG techs currently Ordered MRI of the brain with and without seizure protocol Q4 hour neuro checks Ordered TSH level Urine drug screen, urinalysis, blood cultures are ordered and pending Will defer the rest of medical management to primary team. I discussed the case with the ED physician. Thank you for the consultation. Derick Woods M.D. Neuro-Hospitalist Time with Patient: Greater than 30
[2021-12-06] MEDS: THIAMINE 100 MG TAB PO SCH (16:54)
--- NOTE | 2021-12-06 17:24 | P.HPIM ---
History of Present Illness H&P Date: 12/06/21 Chief Complaint: vomiting 36-year-old male with past medical history remarkable for intractable nausea and vomiting, possible seizure disorder, marijuana use, was admitted yesterday for suspected marijuana hyperemesis syndrome. However patient left AMA. He returned due to continued nausea and vomiting as well as potential seizure. He was with a friend in the ER. They told ER staff that they were out today when the patient laid on the ground and may have had a seizure. In the ER triage and during the ER stay he had 2 ''seizures'', he was shaking. According to ER he stopped shaking when ed physician saw him. Also in the ER he threw up. He is a very poor historian, only willing to answer questions with a yes or no. He has been having abdominal pain, blood in the stools, n/v for the past few days. Used to be alcoholic but quit. States he has ''stomach ulcers'' from alcohol. He smokes marijuana on a daily basis, last use 4 days ago. Denies chest pain or shortness of breath. Denies sick contacts. Denies diarrhea. Work up in the ER showed plasma lactate acetate is 7.4, BUN is 28, initial serum glucose is 120, white blood cell is 19.[address] of the head is reported as no suspicious acute intracranial changes. CT cervical spine is reported as unremarkable. Review of Systems complete review of system was performed, pertinent positives per HPI Past Medical History Past Medical History: No Reported History Additional Past Medical History / Comment(s): Stomach Ulcers History of Any Multi-Drug Resistant Organisms: None Reported Past Surgical History: Adenoidectomy Past Anesthesia/Blood Transfusion Reactions: No Reported Reaction Past Psychological History: No Psychological Hx Reported Smoking Status: Current every day smoker Past Alcohol Use History: None Reported Past Drug Use History: None Reported - Past Family History Mother Family Medical History: Hypertension Medications and Allergies Home Medications Medication Instructions Recorded Confirmed Type Ondansetron Odt [Zofran ODT] 4 mg PO Q8HR PRN #10 tab 11/18/21 12/06/21 Rx Metoclopramide [Reglan] 10 mg PO TID PRN #15 tab 11/19/21 12/06/21 Rx Omeprazole [PriLOSEC] 40 mg PO DAILY #14 cap 11/19/21 12/06/21 Rx Sucralfate [Carafate] 1 gm PO BID #14 tab 11/19/21 12/06/21 Rx Naproxen [Naprosyn] 500 mg PO BID-W/MEALS 12/06/21 12/06/21 History Allergies Allergy/AdvReac Type Severity Reaction Status Date / Time No Known Allergies Allergy Verified 11/19/21 07:34 Physical Exam Vitals: Vital Signs Temp Pulse Pulse Resp BP BP Pulse Ox 12/06/21 16:14 97.9 F 78 17 99/58 95 12/06/21 16:13 97.8 F 78 17 95 12/06/21 14:01 98.4 F 94 16 94/57 12/06/21 11:54 98.2 F 130 H 16 137/104 96 Intake and Output 12/06/21 12/06/21 12/06/21 06:59 14:59 22:59 Other: Weight 60.781 kg Constitutional: No acute distress, conversant, pleasant Eyes:Anicteric sclerae, moist conjunctiva, no lid-lag, PERRLA, ENMT: Oropharynx clear, no erythema, exudates Neck: Supple, FROM, no masses, or JVD, No carotid bruits, No thyromegaly Lungs: Clear to auscultation, Clear to percussion, Normal respiratory effort, no accessory muscle use Cardiovascular: Heart regular in rate and rhythm, No murmurs, gallops, or rubs, No peripheral edema Abdominal: Soft, tender, no guarding, rebound or rigidity, Normoactive bowel sounds, No hepatomegaly, No splenomegaly, No palpable mass Skin: Normal temperature, tone, texture, turgor, no induration, No subcutaneous nodules, No rash, lesions, No ulcers Extremities: No digital cyanosis, No clubbing, Pedal pulses intact and symmetrical, Radial pulses intact and symmetrical, No calf tenderness Psychiatric: Alert and oriented to person, place and time, appropriate affect, intact judgement Neuro: Muscles Strength 5/5 in all 4 extremities, Sensation to light touch grossly present throughout, Cranial nerves II-XII grossly intact, no focal sensory deficits Results CBC & Chem 7: 12/06/21 12:12 12/06/21 12:12 Labs: Abnormal Lab Results - Last 24 Hours (Table) 12/06/21 12/06/21 12/06/21 Range/Units 12:12 12:12 12:12 WBC 19.4 H (3.8-10.6) k/uL MCV 101.3 H (80.0-100.0) fL Neutrophils # 16.9 H (1.3-7.7) k/uL Chloride 110 H (98-107) mmol/L Carbon Dioxide 16 L (22-30) mmol/L BUN 28 H (9-20) mg/dL Glucose 120 H (74-99) mg/dL Plasma Lactic Acid Jonathon 7.4 H* (0.7-2.0) mmol/L Total Protein 9.0 H (6.3-8.2) g/dL Thrombosis Risk Factor Assmnt - Choose All That Apply Any of the Below Risk Factors Present?: Yes Each Factor Represents 1 point: Sepsis (< 1month) Other Risk Factors: No Other congenital or acquired thrombophilia - If yes, enter type in comment: No Thrombosis Risk Factor Assessment Total Risk Factor Score: 1 Thrombosis Risk Factor Assessment Level: Low Risk Assessment and Plan Plan: SIRS IV fluids Stat CXR Was given abx in the ER, unknown infection. Awaiting UA and CXR Blood cx taken Convulsions due to seizures vs pseudoseizures Ativan prn Started on keppra Seen by neuro, will get EEG and MRI brain Hematochezia Unclear if true, will monitor hgb and monitor stools while hospitalized. Cyclic vomiting syndrome IV fluids Due to marijuana abuse, university counselor to quit Hx of PUD Continue PPI and carafate Admit to inpatient expected length of stay more than 2 midnights.
[2021-12-06] MEDS ORDERED: NON FORMULARY DRUG (Omeprazole 40 MG Capsule.Dr) PO SCH (17:30)
[2021-12-06 17:58] LABS: Appearance,Urine Clear (Clear); Bacteria,Urine Rare /hpf; Bilirubin,Urine Negative (Negative); Blood,Urine Negative (Negative); Color,Urine Yellow; Glucose,Urine (UA) Negative (Negative); Ketones,Urine Negative (Negative); Leukocyte Esterase,Urine Negative (Negative); Mucus,Urine Rare /hpf; Nitrite,Urine Negative (Negative); PH, Urine 6.5 (5.0-8.0); Protein,Urine 1+ (Negative); RBC,Urine 3 /hpf (0-5); Squamous Epithelial Cell,Urine <1 /hpf (0-4); Urobilinogen,Urine <2.0 mg/dL (<2.0); WBC,Urine 1 /hpf (0-5)
[2021-12-06 18:07] LABS: Amphetamine Screen,Urine Detected (NotDetected); Barbiturate Screen,Urine Not Detected (NotDetected); Benzodiazepines Screen,Urine Detected (NotDetected); Cocaine Screen,Urine Detected (NotDetected); Methadone Screen, Urine Not Detected (NotDetected); Opiate Screen,Urine Detected (NotDetected); Oxycodone Screen, Urine Not Detected (NotDetected); Phencyclidine Screen,Urine Not Detected (NotDetected); Tricyclic Antidepressant,Urine Detected (NotDetected); Urn Cannabinoid Scrn Detected (NotDetected)
[2021-12-06 18:12] LABS: Specific Gravity,Urine >1.050 (1.001-1.035)
--- NOTE | 2021-12-06 18:27 | XR ---
EXAMINATION TYPE: XR chest 1V portable DATE OF EXAM: 12/06/2021 COMPARISON: 12/06/2021 HISTORY: Chest pain TECHNIQUE: Single frontal view of the chest is obtained. FINDINGS: There is no focal air space opacity, pleural effusion, or pneumothorax seen. The cardiac silhouette size is within normal limits. The osseous structures are intact. IMPRESSION: 1. No acute process.
[2021-12-06] MEDS ORDERED: levETIRAcetam IV 500 MG in SODIUM CHLORIDE 0.9% 100 ML IVPB SCH (21:00)
[2021-12-06] MEDS: SUCRALFATE 1 GM TAB PO SCH (21:40)
[2021-12-06] MEDS ORDERED: VANCOMYCIN 1,000 MG in SODIUM CHLORIDE 0.9% 250 ML IVPB SCH (22:00)
[2021-12-06 22:12] LABS: Glucose,Whole Blood 95 mg/dL (70-110)
[2021-12-06] MEDS ORDERED: LORazepam 1 MG/0.5 ML VIAL IV STA (22:14)
[2021-12-06 22:34] LABS: Glucose,Whole Blood 96 mg/dL (70-110)
[2021-12-06] MEDS ORDERED: PHENYTOIN SODIUM INJ 1,000 MG in SODIUM CHLORIDE 0.9% 100 ML IVPB ONE (23:00)
[2021-12-06] MEDS ORDERED: propofoL 100 ML IV ONE (23:09)
[2021-12-06] MEDS ORDERED: SUCCINYLCHOLINE CHLORIDE VIAL 200 MG/10 ML VIAL IV ONE (23:15)
[2021-12-06] MEDS ORDERED: PROPOFOL 10 MG/ML 20 ML VIAL IV ONE (23:15)
--- NOTE | 2021-12-06 23:19 | P.EN ---
A- team: Indication: Seizure Arrived on Scene to find: Patient having tonic-clonic seizure Vital signs reviewed: BP 99/57, SpO2 97% on 2L, RR 15, T 98.4 Patient seen and examined at bedside. The patient's RN reported that the patient has been having seizure-like activity since 9:57 PM. He was admitted to the hospital for reported seizure and apparently had seizure-like episode in the emergency room with concerns for pseudoseizure. He reportedly had come back to baseline throughout the day today and was on receding on the phone and walking around upon arrival to the unit. He however again became unresponsive and had seizure-like activity earlier tonight. General: Diaphoretic warm, [appears at stated age] Derm: [warm], [dry] Head: [atraumatic], [normocephalic], [symmetric] Eyes: [no lid lag], [anicteric sclera], pupils 4 mm and equal, reactive to light bilaterally Mouth: [no lip lesion], [mucus membranes moist] Cardiovascular: [S1S2 reg], tachycardic,[no murmur], [positive posterior tibial pulse bilateral], Lungs: [CTA bilateral], [no rhonchi, no rales] , [no accessory muscle use] Abdominal: [soft], [ nontender to palpation], [no guarding], [no appreciable organomegaly] Ext: [no gross muscle atrophy], [no edema], [no contractures] Neuro: Unable to assess Assessment: Status epilepticus Plan: Case discussed in detail with neurology on-call Dr. Woods. The patient is felt to be in status epilepticus due to persistent episodes. 2 mg of Ativan IV push was ordered at the scene, which abated the episode. Dr. Woods (neurologist) subsequently recommended transfer to the medical ICU with subsequent transfer to a tertiary care facility for 24 hour EEG monitoring. Case was also discussed with Dr. Clemente who accepted the patient to the ICU. Dr. Woods recommended Vimpat 200 mg IV push once, Dilantin 1000 mg IV push loading dose once, and increasing the maintenance Keppra dose to 1000 g twice a day. The patient did not regain consciousness following the episode. The patient is to be intubated by the CERTIFIED MEDICAL BILLER. A Total of 40 minutes of critical care time was spent on the complex care of this patient.
--- NOTE | 2021-12-06 23:45 | XR ---
EXAMINATION TYPE: XR chest 1V portable DATE OF EXAM: 12/06/2021 COMPARISON: Today HISTORY: Tube placement TECHNIQUE: FINDINGS: The endotracheal tube is 6 cm from the luh. There is nasogastric tube in the stomach. Hannah ngs are clear. Heart and mediastinum are normal. There are no hilar masses. There are chest leads. Co stophrenic angles are clear. Bony thorax is intact. IMPRESSION: Tubing in good position. No cardiopulmonary disease. No change.
[2021-12-07] MEDS: MIDAZOLAM HCL 50 MG in SODIUM CHLORIDE 0.9% 40 ML IV SCH ×4 (00:08→20:15)
[2021-12-07 00:12] LABS: ABG Base Excess -0.1 mmol/L; ABG HCO3 25 mmol/L (21-25); ABG PCO2 44 mmHg (35-45); ABG PH 7.37 (7.35-7.45); ABG PO2 >400 mmHg (83-108); ABG TCO2 27 mmol/L (19-24); Allen Test Performed? Yes
[2021-12-07] MEDS ORDERED: LACOSAMIDE IV 200 MG in SODIUM CHLORIDE 0.9% 50 ML IVPB ONE (00:30)
[2021-12-07] MEDS: PIPERACILLIN-TAZOBACTAM 3.375 GM in SODIUM CHLORIDE 0.9% 100 ML IVPB SCH ×4 (01:10→23:46)
[2021-12-07 05:46] LABS: ABG Base Excess 0.3 mmol/L; ABG HCO3 24 mmol/L (21-25); ABG Oxygen Saturation 99.5 % (94-97); ABG PCO2 36 mmHg (35-45); ABG PH 7.44 (7.35-7.45); ABG PO2 159 mmHg (83-108); ABG TCO2 25 mmol/L (19-24); Allen Test Performed? Yes
[2021-12-07 05:54] LABS: Glucose,Whole Blood 90 mg/dL (70-110)
[2021-12-07 06:39] LABS: ALT 16 U/L (4-49); AST 27 U/L (17-59); African American GFR (CKD) >90 (>60 ml/min/1.73 sqM); Albumin 3.3 g/dL (3.5-5.0); Albumin/Globulin Ratio 1.2; Alkaline Phosphatase 44 U/L (38-126); Anion Gap 7 mmol/L; Blood Urea Nitrogen 22 mg/dL (9-20); Calcium 8.5 mg/dL (8.4-10.2); Carbon Dioxide 21 mmol/L (22-30); Chloride 111 mmol/L (98-107); Globulin 2.8 g/dL; Glucose 89 mg/dL (74-99); Non-African American GFR(CKD) >90 (>60 ml/min/1.73 sqM); Sodium 139 mmol/L (137-145); Total Bilirubin 0.9 mg/dL (0.2-1.3); Total Protein 6.1 g/dL (6.3-8.2)
[2021-12-07 06:40] LABS: Potassium 3.9 mmol/L (3.5-5.1)
[2021-12-07 06:42] LABS: Basophils % (A) 0 %; Eosinophils # (A) 0.1 k/uL (0-0.7); Eosinophils % (A) 1 %; HCT 39.3 % (39.0-53.0); Lymphocytes # (A) 1.7 k/uL (1.0-4.8); Lymphocytes % (A) 14 %; MCH 33.5 pg (25.0-35.0); MCHC 33.3 g/dL (31.0-37.0); MCV 100.6 fL (80.0-100.0); Mean Platelet Volume 7.8; Monocytes # (A) 0.8 k/uL (0-1.0); Monocytes % (A) 6 %; Neutrophils % (A) 78 %; Platelet Count 255 k/uL (150-450); RBC 3.91 m/uL (4.30-5.90); WBC 12.8 k/uL (3.8-10.6)
[2021-12-07 06:43] LABS: HGB 13.1 gm/dL (13.0-17.5)
--- NOTE | 2021-12-07 09:02 | P.PN ---
Subjective Progress Note Date: 12/07/21 Yesterday at night, I was notified by the floor nurse that patient had 12 minute seizure and was convulsing. Then I spoke with primary attending who was at bedside and he stated some of his convulsion seemed actual seizures and some seeded pseudoseizures. He did stated that patient has jerking of extremities and at one time grabbing on bed rail. Because there was concern he continues to seize and since the primary felt some of his episodes seemed "true seizures". It was felt patient was in status e pileptic and I notified team to intubate the patient and send him to ICU. Patient was to receive 2mg Ativan, Loading dose of Dilantin 1000mg once and Vimpat 300mg once. In the ICU the patient was intubated as result. He was started on IV Propofol 30mcg/kg/min and Versed 2mg/hr. No further seizure in the ICU. Objective - Vital Signs Vital signs: Vital Signs Temp 96.5 F L 12/07/21 04:00 Pulse 67 12/07/21 06:00 Resp 26 H 12/07/21 06:00 BP 92/56 12/07/21 06:00 Pulse Ox 100 12/07/21 06:00 FiO2 40 12/07/21 07:00 Intake & Output 12/06/21 12/07/21 12/07/21 18:59 06:59 18:59 Intake Total 472.109 45.359 Output Total 950 40 Balance -477.891 5.359 Weight 60.781 kg 66 kg Intake: IV 350 20 0.9% KVO 100 20 Lacosamide IV 200 mg In 50 Sodium Chloride 0.9% 50 ml @ 100 mls/hr IVPB ONCE ONE Rx#:[id number] Phenytoin Sodium Inj 1, 100 000 mg In Sodium Chloride 0.9% 100 ml @ 200 mls/hr IVPB ONCE ONE Rx#: [id number] Piperacillin-Tazobactam 3 100 .375 gm In Sodium Chloride 0.9% 100 ml @ 25 mls/hr IVPB Q8HR [facility] Rx# :[id number] Intake, IV Titration 122.109 25.359 Amount Midazolam HCl 50 mg In 1.033 19.25 Sodium Chloride 0.9% 40 ml @ 1 MG/HR 1 mls/hr IV .Q24H [facility] Rx#:[id number] propofoL 1,000 mg In 121.076 6.109 Empty Bag 1 bag @ 5 MCG/ KG/MIN 1.823 mls/hr IV . Q24H [facility] Rx#:[id number] Output: Gastric Drainage 350 Urine 600 40 Other: Voiding Method Indwelling Catheter # Voids 1 - Exam GENERAL: The patient is lying in bed and does not seem in acute distress. Appears much older than his age. LUNG: Intubated on ventilator. NEUROLOGICAL: Limited because of his condition. IV Propofol 30mcg/kg/min and Versed 2mg/hr. Higher mental function: Comatose. GCS 3 (E1, VT1, M1). Cranial nerves: I had to manually open his eyes. The pupils are pinpoint. No facial weakness. Motor: The strength is Unable to assess at this time since sedated. Some of the workup in our facility consisted of: Initial plasma lactate acetate is 7.4-->1.1, BUN is 28, initial serum glucose is 120, Initial white blood cell is 19.4-->12.8 and slightly neutrophilic. TSH: 1.010 CT of the head is reported as no suspicious acute intracranial changes. Follow up MRI can be performed as clinically indicated. I personally reviewed CT of the head and I agree with the report CT cervical spine is reported as unremarkable. Urine drug screen: +ve opiates, tricyclic, amphetamine, benzo, cocaine, marijuana. serum Alcohol <10 - Labs CBC & Chem 7: 12/07/21 05:35 12/07/21 05:35 Labs: Abnormal Lab Results - Last 24 Hours (Table) 12/06/21 12/06/21 12/06/21 Range/Units 12:12 12:12 12:12 WBC 19.4 H (3.8-10.6) k/uL RBC (4.30-5.90) m/uL MCV 101.3 H (80.0-100.0) fL Neutrophils # 16.9 H (1.3-7.7) k/uL ABG pO2 (83-108) mmHg ABG Total CO2 (19-24) mmol/L ABG O2 Saturation (94-97) % Chloride 110 H (98-107) mmol/L Carbon Dioxide 16 L (22-30) mmol/L BUN 28 H (9-20) mg/dL Glucose 120 H (74-99) mg/dL Plasma Lactic Acid Jonathon 7.4 H* (0.7-2.0) mmol/L Total Protein 9.0 H (6.3-8.2) g/dL Albumin (3.5-5.0) g/dL Ur Specific [place] (1.001-1.035) Urine Protein (Negative) Urine Bacteria (None) /hpf Urine Mucus (None) /hpf Urine Opiates Screen (NotDetected) U Tricyclic Antidepress (NotDetected) Ur Amphetamines Screen (NotDetected) U Benzodiazepines Scrn (NotDetected) Urine Cocaine Screen (NotDetected) U Marijuana (THC) Screen (NotDetected) 12/06/21 12/06/21 12/07/21 Range/Units 17:32 17:32 00:10 WBC (3.8-10.6) k/uL RBC (4.30-5.90) m/uL MCV (80.0-100.0) fL Neutrophils # (1.3-7.7) k/uL ABG pO2 >400 H (83-108) mmHg ABG Total CO2 27 H (19-24) mmol/L ABG O2 Saturation 100.0 H (94-97) % Chloride (98-107) mmol/L Carbon Dioxide (22-30) mmol/L BUN (9-20) mg/dL Glucose (74-99) mg/dL Plasma Lactic Acid Jonathon (0.7-2.0) mmol/L Total Protein (6.3-8.2) g/dL Albumin (3.5-5.0) g/dL Ur Specific [place] >1.050 H (1.001-1.035) Urine Protein 1+ H (Negative) Urine Bacteria Rare H (None) /hpf Urine Mucus Rare H (None) /hpf Urine Opiates Screen Detected H (NotDetected) U Tricyclic Antidepress Detected H (NotDetected) Ur Amphetamines Screen Detected H (NotDetected) U Benzodiazepines Scrn Detected H (NotDetected) Urine Cocaine Screen Detected H (NotDetected) U Marijuana (THC) Screen Detected H (NotDetected) 12/07/21 12/07/21 12/07/21 Range/Units 05:35 05:35 05:41 WBC 12.8 H (3.8-10.6) k/uL RBC 3.91 L (4.30-5.90) m/uL MCV 100.6 H (80.0-100.0) fL Neutrophils # 10.0 H (1.3-7.7) k/uL ABG pO2 159 H (83-108) mmHg ABG Total CO2 25 H (19-24) mmol/L ABG O2 Saturation 99.5 H (94-97) % Chloride 111 H (98-107) mmol/L Carbon Dioxide 21 L (22-30) mmol/L BUN 22 H (9-20) mg/dL Glucose (74-99) mg/dL Plasma Lactic Acid Jonathon (0.7-2.0) mmol/L Total Protein 6.1 L (6.3-8.2) g/dL Albumin 3.3 L (3.5-5.0) g/dL Ur Specific [place] (1.001-1.035) Urine Protein (Negative) Urine Bacteria (None) /hpf Urine Mucus (None) /hpf Urine Opiates Screen (NotDetected) U Tricyclic Antidepress (NotDetected) Ur Amphetamines Screen (NotDetected) U Benzodiazepines Scrn (NotDetected) Urine Cocaine Screen (NotDetected) U Marijuana (THC) Screen (NotDetected) Assessment and Plan Assessment: * Recurrent episodes of seizure-like activity and it was felt patient was in status epilepticus (per Primary team some his episodes seemed pseudo and some seemed true in nature). As result patient was intubated and on ventilator for airway protection. * Leukocytosis, lactic acid and elevated labs seems a component reactive to his seizure and not just emisis. * Acute on chronic emisis, vomiting with abdominal pain (had multiple ED physician for the same complaint) * History of reported seizure (few months ago) and not on antiepileptic drug * Encephalopathy possible due to seizure, medication induced (Versed and Propofol) * Polysubstance abuse (Urine drug scree is positive for opiates, TCA, Amphetamine, benzo, cocaine and Marijuana) * History of Chronic pancreatitis * History of Alcohol use and reported sober 4-5 years ago * History of ulcer * Nicotine use * Marijuana use Plan: Increased Keppra to 1gm bid (was not on any antiepileptic drugs prior). Patient is pending to transferred for shelter EEG since having recurrent seizure-like episodes and concern for status. Pending MRI Brain w/ and w/o: Seizure protocol. Cannot be done since Ventilator is not MRI Compatible. Continue neuro checks. On seizure precaution and pads. Continue thiamine 100mg daily. Will defer the rest of medical management to the primary team and ICU team. The plan is discussed with the patient's nurse. UPDATE: The patient has not had any further clinical seizures. Was updated that [facility] does not have 24 hour EEG while [facility] do not have any beds available. Therefore, will proceed with EEG in our facility and need for transfer. Preliminary routine EEG: No seizure seen. Notified nurse, to proceed with weaning medication down and to attempt to extuba te today. Derick Woods M.D. Neuro-Hospitalist Time with Patient: Greater than 30
[2021-12-07] MEDS: levETIRAcetam IV 1,000 MG in SALINE 1 100ML.BAG IVPB SCH ×2 (09:20→20:26)
[2021-12-07] MEDS: SUCRALFATE 1 GM TAB PO SCH ×2 (09:20→20:27)
[2021-12-07] MEDS: THIAMINE 100 MG TAB PO SCH (09:20)
[2021-12-07] MEDS: PANTOPRAZOLE 40 MG/10 ML VIAL IV SCH (09:20)
[2021-12-07] MEDS: CHLORHEXIDINE GLUCONATE 15 ML CUP MUCOUS MEM SCH ×2 (09:20→20:26)
--- NOTE | 2021-12-07 10:47 | XR ---
EXAMINATION TYPE: XR chest 1V portable DATE OF EXAM: 12/07/2021 COMPARISON: Chest x-ray 12/06/2021 HISTORY: Endotracheal tube placement TECHNIQUE: Single frontal view of the chest is obtained. FINDINGS: Endotracheal tube and NG tube are overlying appropriate positions, the side port of the NG tube is likely near the level of the gastroesophageal junction however. Patient is rotated. There is no evident pneumothorax or right pleural effusion, there is blunting of the left costophrenic angle with basilar density, partially obscured left hemidiaphragm. There are overlying artifacts. Cardiac m ediastinal silhouette is likely stable. IMPRESSION: Probable left lower lobe atelectasis and possible associated effusion, correlate to excl ude pneumonia
--- NOTE | 2021-12-07 11:05 | P.PN ---
Subjective Progress Note Date: 12/07/21 Principal diagnosis: seizures Patient had multiple pedz-no-fgap seizures, these were felt to be truly convulsive seizures. He eventually had to be intubated due to status epilept icus and was transferred to ICU. He is currently on Versed and propofol drips. No fevers. Objective - Vital Signs Vital signs: Vital Signs Temp 97.6 F 12/07/21 08:00 Pulse 66 12/07/21 10:00 Resp 22 12/07/21 10:00 BP 97/66 12/07/21 10:00 Pulse Ox 100 12/07/21 10:00 FiO2 35 12/07/21 10:20 Intake & Output 12/06/21 12/07/21 12/07/21 18:59 06:59 18:59 Intake Total 472.109 270.726 Output Total 950 105 Balance -477.891 165.726 Weight 60.781 kg 66 kg Intake: IV 350 240 0.9% KVO 100 40 Lacosamide IV 200 mg In 50 Sodium Chloride 0.9% 50 ml @ 100 mls/hr IVPB ONCE ONE Rx#:[id number] Phenytoin Sodium Inj 1, 100 000 mg In Sodium Chloride 0.9% 100 ml @ 200 mls/hr IVPB ONCE ONE Rx#: [id number] Piperacillin-Tazobactam 3 100 100 .375 gm In Sodium Chloride 0.9% 100 ml @ 25 mls/hr IVPB Q8HR [facility] Rx# :[id number] levETIRAcetam IV 1,000 mg 100 In Saline 1 100ml.bag @ 400 mls/hr IVPB Q12HR [facility] Rx#:[id number] Intake, IV Titration 122.109 30.726 Amount Midazolam HCl 50 mg In 1.033 24.617 Sodium Chloride 0.9% 40 ml @ 1 MG/HR 1 mls/hr IV .Q24H [facility] Rx#:[id number] propofoL 1,000 mg In 121.076 6.109 Empty Bag 1 bag @ 5 MCG/ KG/MIN 1.823 mls/hr IV . Q24H [facility] Rx#:[id number] Output: Gastric Drainage 350 Urine 600 105 Other: Voiding Method Indwelling Catheter Indwelling Catheter # Voids 1 - Exam Constitutional: Intubated, sedated Eyes:Anicteric sclerae, moist conjunctiva, no lid-lag, PERRLA, ENMT: Oropharynx clear, no erythema, exudates Neck: Supple, FROM, no masses, or JVD, No carotid bruits, No thyromegaly Lungs: Clear to auscultation, Clear to percussion, Normal respiratory effort, no accessory muscle use Cardiovascular: Heart regular in rate and rhythm, No murmurs, gallops, or rubs, No peripheral edema Abdominal: Soft, Nontender, no guarding, rebound or rigidity, Normoactive bowel sounds, No hepatomegaly, No splenomegaly, No palpable mass Skin: Normal temperature, tone, texture, turgor, no induration, No subcutaneous nodules, No rash, lesions, No ulcers Extremities: No digital cyanosis, No clubbing, Pedal pulses intact and symmetrical, Radial pulses intact and symmetrical, No calf tenderness Neuro: Intubated, sedated - Labs CBC & Chem 7: 12/07/21 05:35 12/07/21 05:35 Labs: Abnormal Lab Results - Last 24 Hours (Table) 12/06/21 12/06/21 12/06/21 Range/Units 12:12 12:12 12:12 WBC 19.4 H (3.8-10.6) k/uL RBC (4.30-5.90) m/uL MCV 101.3 H (80.0-100.0) fL Neutrophils # 16.9 H (1.3-7.7) k/uL ABG pO2 (83-108) mmHg ABG Total CO2 (19-24) mmol/L ABG O2 Saturation (94-97) % Chloride 110 H (98-107) mmol/L Carbon Dioxide 16 L (22-30) mmol/L BUN 28 H (9-20) mg/dL Glucose 120 H (74-99) mg/dL Plasma Lactic Acid Jonathon 7.4 H* (0.7-2.0) mmol/L Total Protein 9.0 H (6.3-8.2) g/dL Albumin (3.5-5.0) g/dL Ur Specific [place] (1.001-1.035) Urine Protein (Negative) Urine Bacteria (None) /hpf Urine Mucus (None) /hpf Urine Opiates Screen (NotDetected) U Tricyclic Antidepress (NotDetected) Ur Amphetamines Screen (NotDetected) U Benzodiazepines Scrn (NotDetected) Urine Cocaine Screen (NotDetected) U Marijuana (THC) Screen (NotDetected) 12/06/21 12/06/21 12/07/21 Range/Units 17:32 17:32 00:10 WBC (3.8-10.6) k/uL RBC (4.30-5.90) m/uL MCV (80.0-100.0) fL Neutrophils # (1.3-7.7) k/uL ABG pO2 >400 H (83-108) mmHg ABG Total CO2 27 H (19-24) mmol/L ABG O2 Saturation 100.0 H (94-97) % Chloride (98-107) mmol/L Carbon Dioxide (22-30) mmol/L BUN (9-20) mg/dL Glucose (74-99) mg/dL Plasma Lactic Acid Jonathon (0.7-2.0) mmol/L Total Protein (6.3-8.2) g/dL Albumin (3.5-5.0) g/dL Ur Specific [place] >1.050 H (1.001-1.035) Urine Protein 1+ H (Negative) Urine Bacteria Rare H (None) /hpf Urine Mucus Rare H (None) /hpf Urine Opiates Screen Detected H (NotDetected) U Tricyclic Antidepress Detected H (NotDetected) Ur Amphetamines Screen Detected H (NotDetected) U Benzodiazepines Scrn Detected H (NotDetected) Urine Cocaine Screen Detected H (NotDetected) U Marijuana (THC) Screen Detected H (NotDetected) 12/07/21 12/07/21 12/07/21 Range/Units 05:35 05:35 05:41 WBC 12.8 H (3.8-10.6) k/uL RBC 3.91 L (4.30-5.90) m/uL MCV 100.6 H (80.0-100.0) fL Neutrophils # 10.0 H (1.3-7.7) k/uL ABG pO2 159 H (83-108) mmHg ABG Total CO2 25 H (19-24) mmol/L ABG O2 Saturation 99.5 H (94-97) % Chloride 111 H (98-107) mmol/L Carbon Dioxide 21 L (22-30) mmol/L BUN 22 H (9-20) mg/dL Glucose (74-99) mg/dL Plasma Lactic Acid Jonathon (0.7-2.0) mmol/L Total Protein 6.1 L (6.3-8.2) g/dL Albumin 3.3 L (3.5-5.0) g/dL Ur Specific [place] (1.001-1.035) Urine Protein (Negative) Urine Bacteria (None) /hpf Urine Mucus (None) /hpf Urine Opiates Screen (NotDetected) U Tricyclic Antidepress (NotDetected) Ur Amphetamines Screen (NotDetected) U Benzodiazepines Scrn (NotDetected) Urine Cocaine Screen (NotDetected) U Marijuana (THC) Screen (NotDetected) Assessment and Plan Plan: Acute hypoxemic respiratory failure Patient was seen by pulmonary, ventilator management according to pulmonary Status epilepticus He was loaded with Dilantin, vimpat, Keppra dose was increased to 1 g twice a day. He is being followed by neurology Monitor in ICU EEG Cannot have MRI now due to being on the vent SIRS possible sepsis IV fluids No evidence of infection on chest x-ray or UA Was given abx in the ER, continue on zosyn for now Follow-up blood cx taken Metabolic acidosis Likely sec to dehydration, can't r/u sepsis Improved. Hematochezia Unclear if true, will monitor hgb and monitor stools while hospitalized. Cyclic vomiting syndrome IV fluids Due to marijuana abuse, marriage counselor minister to quit Hx of PUD/GI prophylaxis PPI IV
[2021-12-07 11:44] VITALS: BMI 21.4
[2021-12-07 11:44] LABS: Glucose,Whole Blood 87 mg/dL (70-110)
[2021-12-07] MEDS: ENOXAPARIN 40 MG/0.4 ML SYRINGE SQ SCH (12:04)
--- NOTE | 2021-12-07 12:26 | P.CNPUL ---
History of Present Illness Consult date: 12/07/21 Requesting physician: Elizabeth Monson Reason for consult: other (Status epilepticus, ICU management) Chief complaint: Abdominal pain and nausea and vomiting, seizure History of present illness: This is a 36-year-old white male, known history of stomach ulcers, presented to the ER yesterday with intractable nausea and vomiting. Drug screen was positive for multiple drugs including marijuana, amphetamine, tricyclics, cocaine, and benzodiazepines. Patient also mentioned that he may have had a seizure that was witnessed by his friend. While in the triage area in the ER, patient started having uncontrollable shaking, brought back to the trauma bay and suddenly patient stopped shaking set up and began throwing up. He had nonbloody emesis. Apparently the patient had some questionable history of previous seizures and he was a very poor historian at the time of presentation. Patient was seen by neurology on consultation, and apparently he had multiple episodes of seizure- like activities, and the neurologist felt that the patient has status epilepticus. Patient was transferred to the ICU, and upon arrival to the ICU, patient was intubated because of status epilepticus, placed on propofol and Versed, and I was asked to see him on consultation. Patient is now on assist control rate of 22, volume 450 FiO2 40% PEEP of 5 ABG showed a pO2 of 159 pCO2 36 pH of 7.44. Patient is maintaining on Versed at 2 mg per hour up a fall 50 mcg/kg/m Keppra 1 g every 12 hours is also on Zosyn empirically. After evaluating the patient, I cut down his FiO2 to 35%, and patient is scheduled to undergo EEG at 1 PM today. I have also recommended starting the patient on enteral feedings, GI and DVT prophylaxis also recommended. Review of Systems ROS unobtainable: due to endotracheal tube Past Medical History Past Medical History: No Reported History Additional Past Medical History / Comment(s): Stomach Ulcers History of Any Multi-Drug Resistant Organisms: None Reported Past Surgical History: Adenoidectomy Past Anesthesia/Blood Transfusion Reactions: No Reported Reaction Past Psychological History: No Psychological Hx Reported Smoking Status: Current every day smoker Past Alcohol Use History: None Reported Past Drug Use History: None Reported - Past Family History Mother Family Medical History: Hypertension Medications and Allergies Home Medications Medication Instructions Recorded Confirmed Type Ondansetron Odt [Zofran ODT] 4 mg PO Q8HR PRN #10 tab 11/18/21 12/06/21 Rx Metoclopramide [Reglan] 10 mg PO TID PRN #15 tab 11/19/21 12/06/21 Rx Omeprazole [PriLOSEC] 40 mg PO DAILY #14 cap 11/19/21 12/06/21 Rx Sucralfate [Carafate] 1 gm PO BID #14 tab 11/19/21 12/06/21 Rx Naproxen [Naprosyn] 500 mg PO BID-W/MEALS 12/06/21 12/06/21 History Allergies Allergy/AdvReac Type Severity Reaction Status Date / Time No Known Allergies Allergy Verified 11/19/21 07:34 Physical Exam Vitals: Vital Signs Temp Pulse Pulse Resp BP BP Pulse Ox 12/07/21 12:00 97.6 F 72 22 96/67 99 12/07/21 11:30 68 23 94/61 97 12/07/21 11:10 12/07/21 11:00 66 22 107/71 97 12/07/21 10:30 69 22 119/78 98 12/07/21 10:20 12/07/21 10:00 66 22 97/66 100 12/07/21 09:30 64 22 92/56 98 12/07/21 09:00 66 22 92/58 98 12/07/21 08:30 67 22 93/64 98 12/07/21 08:00 97.6 F 69 22 91/56 98 12/07/21 07:30 62 22 89/58 12/07/21 07:00 67 22 94/70 98 12/07/21 06:30 69 22 97/71 12/07/21 06:00 67 26 H 92/56 100 12/07/21 05:30 68 28 H 94/57 98 12/07/21 05:00 71 28 H 117/81 98 12/07/21 04:30 73 22 119/86 12/07/21 04:15 12/07/21 04:00 96.5 F L 79 22 107/77 12/07/21 03:30 74 22 107/72 12/07/21 03:00 74 22 105/74 12/07/21 02:30 73 22 98/65 97 12/07/21 02:20 75 22 100/62 98 12/07/21 02:10 73 22 93/61 96 12/07/21 02:00 73 22 94/57 97 12/07/21 01:50 72 22 88/56 97 12/07/21 01:40 74 22 90/57 95 12/07/21 01:30 79 22 88/50 97 12/07/21 01:20 79 22 85/49 97 12/07/21 01:10 81 22 83/49 97 12/07/21 01:00 84 22 89/47 96 12/07/21 00:50 86 22 86/49 96 12/07/21 00:40 89 22 90/51 96 12/07/21 00:30 96 22 98/59 96 12/07/21 00:20 107 H 22 105/82 92 L 12/07/21 00:15 12/07/21 00:10 93 22 97/59 99 12/07/21 00:00 96.6 F L 93 22 104/58 99 12/06/21 23:50 106 H 22 132/122 98 12/06/21 23:40 22 121/71 98 12/06/21 23:39 12/06/21 23:30 115 H 23 144/116 99 12/06/21 23:20 96.9 F L 125 H 22 133/100 99 12/06/21 23:10 97 15 99/57 97 12/06/21 23:07 12/06/21 23:00 93 97/57 96 12/06/21 22:50 101 H 99/58 96 12/06/21 22:40 101 H 17 100/62 96 12/06/21 22:20 111 H 109/52 94 L 12/06/21 22:10 99.1 F 122 H 101/59 12/06/21 22:05 117 H 97/59 97 12/06/21 19:17 98.0 F 68 16 123/75 99 12/06/21 16:14 97.9 F 78 17 99/58 95 12/06/21 16:13 97.8 F 78 17 95 12/06/21 14:01 98.4 F 94 16 94/57 FiO2 12/07/21 12:00 40 12/07/21 11:30 12/07/21 11:10 35 12/07/21 11:00 12/07/21 10:30 07/08/22 10:20 35 12/07/21 10:00 12/07/21 09:30 12/07/21 09:00 12/07/21 08:30 12/07/21 08:00 40 12/07/21 07:30 12/07/21 07:00 40 12/07/21 06:30 12/07/21 06:00 12/07/21 05:30 12/07/21 05:00 12/07/21 04:30 12/07/21 04:15 40 12/07/21 04:00 40 12/07/21 03:30 12/07/21 03:00 12/07/21 02:30 12/07/21 02:20 12/07/21 02:10 12/07/21 02:00 12/07/21 01:50 12/07/21 01:40 12/07/21 01:30 12/07/21 01:20 12/07/21 01:10 12/07/21 01:00 12/07/21 00:50 12/07/21 00:40 12/07/21 00:30 12/07/21 00:20 12/07/21 00:15 40 12/07/21 00:10 12/07/21 00:00 40 12/06/21 23:50 12/06/21 23:40 12/06/21 23:39 100 12/06/21 23:30 12/06/21 23:20 100 12/06/21 23:10 12/06/21 23:07 12/06/21 23:00 12/06/21 22:50 12/06/21 22:40 12/06/21 22:20 12/06/21 22:10 12/06/21 22:05 12/06/21 19:17 12/06/21 16:14 12/06/21 16:13 12/06/21 14:01 Intake and Output 12/06/21 12/07/21 12/07/21 22:59 06:59 14:59 Intake Total 472.109 368.952 Output Total 950 145 Balance -477.891 223.952 Intake: IV 350 280 0.9% KVO 100 80 Lacosamide IV 200 mg In 50 Sodium Chloride 0.9% 50 ml @ 100 mls/hr IVPB ONCE ONE Rx#:[id number] Phenytoin Sodium Inj 1, 100 000 mg In Sodium Chloride 0.9% 100 ml @ 200 mls/hr IVPB ONCE ONE Rx#: [id number] Piperacillin-Tazobactam 3 100 100 .375 gm In Sodium Chloride 0.9% 100 ml @ 25 mls/hr IVPB Q8HR [facility] Rx# :[id number] levETIRAcetam IV 1,000 mg 100 In Saline 1 100ml.bag @ 400 mls/hr IVPB Q12HR [facility] Rx#:[id number] Intake, IV Titration 122.109 88.952 Amount Midazolam HCl 50 mg In 1.033 29.050 Sodium Chloride 0.9% 40 ml @ 1 MG/HR 1 mls/hr IV .Q24H [facility] Rx#:[id number] propofoL 1,000 mg In 121.076 59.902 Empty Bag 1 bag @ 5 MCG/ KG/MIN 1.823 mls/hr IV . Q24H [facility] Rx#:[id number] Output: Gastric Drainage 350 Urine 600 145 Other: Voiding Method Indwelling Catheter Indwelling Catheter # Voids 1 Weight 66 kg 66 kg Physical Exam: Revealed 36-year-old white male sedated, intubated, mechanically ventilated. Head: Atraumatic, normocephalic endotracheal tube and orogastric tube are intact HEENT:[Neck is supple.] [No neck masses.] [No thyromegaly.] [No JVD.] Chest: [Clear throughout, no crackles, no rhonchi, no wheezes.] Cardiac Exam: [Normal S1 and S2, no S3 gallop, no murmur.] Abdomen: [Soft, nontender, no megaly, no rebound, no guarding, normal bowel sounds.] Extremities: [No clubbing, no edema, no cyanosis.] Neurological Exam: Cannot assess, patient is sedated, pupils are equally reactive to light. Psychiatric: Could not assess. Skin: No rashes. Results - Laboratory Findings CBC and BMP: 12/07/21 05:35 12/07/21 05:35 ABG ABG pH 7.44 (7.35-7.45) 12/07/21 05:41 ABG pCO2 36 mmHg (35-45) 12/07/21 05:41 ABG pO2 159 mmHg (83-108) H 12/07/21 05:41 ABG O2 Saturation 99.5 % (94-97) H 12/07/21 05:41 PT/INR, D-dimer PT 10.7 sec (9.0-12.0) 12/06/21 12:12 INR 1.0 (<1.2) 12/06/21 12:12 Abnormal lab findings: Abnormal Labs 12/06/21 12/06/21 12/06/21 12:12 12:12 12:12 WBC 19.4 H RBC MCV 101.3 H Neutrophils # 16.9 H ABG pO2 ABG Total CO2 ABG O2 Saturation Chloride 110 H Carbon Dioxide 16 L BUN 28 H Glucose 120 H Plasma Lactic Acid Jonathon 7.4 H* Total Protein 9.0 H Albumin Ur Specific [place] Urine Protein Urine Bacteria Urine Mucus Urine Opiates Screen U Tricyclic Antidepress Ur Amphetamines Screen U Benzodiazepines Scrn Urine Cocaine Screen U Marijuana (THC) Screen 12/06/21 12/06/21 12/07/21 17:32 17:32 00:10 WBC RBC MCV Neutrophils # ABG pO2 >400 H ABG Total CO2 27 H ABG O2 Saturation 100.0 H Chloride Carbon Dioxide BUN Glucose Plasma Lactic Acid Jonathon Total Protein Albumin Ur Specific [place] >1.050 H Urine Protein 1+ H Urine Bacteria Rare H Urine Mucus Rare H Urine Opiates Screen Detected H U Tricyclic Antidepress Detected H Ur Amphetamines Screen Detected H U Benzodiazepines Scrn Detected H Urine Cocaine Screen Detected H U Marijuana (THC) Screen Detected H 12/07/21 12/07/21 12/07/21 05:35 05:35 05:41 WBC 12.8 H RBC 3.91 L MCV 100.6 H Neutrophils # 10.0 H ABG pO2 159 H ABG Total CO2 25 H ABG O2 Saturation 99.5 H Chloride 111 H Carbon Dioxide 21 L BUN 22 H Glucose Plasma Lactic Acid Jonathon Total Protein 6.1 L Albumin 3.3 L Ur Specific [place] Urine Protein Urine Bacteria Urine Mucus Urine Opiates Screen U Tricyclic Antidepress Ur Amphetamines Screen U Benzodiazepines Scrn Urine Cocaine Screen U Marijuana (THC) Screen - Diagnostic Findings Chest x-ray: image reviewed ( left basilar atelectasis, doubt pneumonia, endotracheal tube seems to be sitting high up in the trachea and needs to be advanced) Assessment and Plan Assessment: Impression: Acute hypoxic respiratory failure secondary to status epilepticus Status epilepticus, possible pseudoseizures, EEG is pending Multiple drugs toxicity based on drug screen, could be contributing factors to his seizures and GI symptoms. Questionable history of seizures Recommendation: Continue ventilatory support Continue sedation, possibly discontinue Versed and continue propofol Enteral feeding/nutritional support DVT prophylaxis Continue Keppra EEG is pending to be done at 1 PM today. Discontinue vancomycin Continue Zosyn empirically for possible aspiration Will continue to follow. Time with Patient: Greater than 30
[2021-12-07] MEDS: DEXMEDETOMIDINE/0.9% NACL(PMX) 400 MCG in EMPTY BAG 1 BAG IV SCH (15:00)
--- NOTE | 2021-12-07 15:37 | EEG ---
ELECTROENCEPHALOGRAM REPORT DATE OF SERVICE: 12/07/2021. This is a 36-year-old gentleman, history of seizure who presents to our emergency department for recurrent seizure-like activity. The video EEG is obtained to evaluate for seizure epileptiform activity. RELEVANT MEDICATION: Keppra, Vimpat, Dilantin, IV Versed, and propofol. EEG TYPE: A routine 21 channel EEG is performed with video using the 10/20 electrode placement system. DESCRIPTION: The patient is intubated on a ventilator. The background consists of moderate voltage of 10-11 hertz activity that seems sharp in contour and at times intermixed with theta activity. There is no physiological sleep architecture seen. There is no focal slowing. Interictal and ictal is none. ACTIVATION PROCEDURE: Photic stimulation and hyperventilation is not performed. CLINICAL INTERPRETATION: This is an abnormal routine EEG. The background slowing is suggestive of mild encephalopathy. There is no focal slowing, epileptiform discharge or seizure on the EEG. Clinical correlation is recommended MMFLORES / CAMIN: [id number] / MTDD
[2021-12-07 18:01] LABS: Glucose,Whole Blood 66 mg/dL (70-110)
--- NOTE | 2021-12-07 22:43 | P.CONS ---
History of Present Illness - Reason for Consult Consult date: 12/07/21 - History of Present Illness Patient is a 36-year-old male who presented to the ER yesterday morning for evaluation of intractable nausea and vomiting and apparently the patient did have a seizure at home witnessed by his friend, while in the ER the patient did have a uncontrollable shaking patient was subsequently admitted to the floor for seizure has been evaluated by neurology and apparently he had multiple episodes of seizure-like activities concerning for status epilepticus the patient was transferred to the ICU intubated to protect his airway patient on presentation to the hospital was afebrile and no fever have been recorded subsequently patient did have white count 19.4 with a left shift kidney function has been normal was observed normal amylase lipase was normal urine has been negative urine drug screen was positive for opiates antidepressant amphetamines benzo cocaine and marijuana mcfadden PCR was negative patient did have a CT of the brain was negative for any bleed CT abdominal pelvis on admission because of his GI symptoms was unremarkable chest x-ray completed this morning shows possible left lower lobe atelectasis possible associated effusion with concern for possible aspiration pneumonia infectious he was consulted for management of antibiotic therapy patient is currently on Zosyn not requiring any pressor support most information has been obtained from review the chart and talking nursing staff as the patient is currently intubated on the vent and cannot provide any history Past Medical History Past Medical History: No Reported History Additional Past Medical History / Comment(s): Stomach Ulcers History of Any Multi-Drug Resistant Organisms: None Reported Past Surgical History: Adenoidectomy Past Anesthesia/Blood Transfusion Reactions: No Reported Reaction Past Psychological History: No Psychological Hx Reported Smoking Status: Current every day smoker Past Alcohol Use History: None Reported Past Drug Use History: None Reported - Past Family History Mother Family Medical History: Hypertension Medications and Allergies Home Medications Medication Instructions Recorded Confirmed Type Ondansetron Odt [Zofran ODT] 4 mg PO Q8HR PRN #10 tab 11/18/21 12/06/21 Rx Metoclopramide [Reglan] 10 mg PO TID PRN #15 tab 11/19/21 12/06/21 Rx Omeprazole [PriLOSEC] 40 mg PO DAILY #14 cap 11/19/21 12/06/21 Rx Sucralfate [Carafate] 1 gm PO BID #14 tab 11/19/21 12/06/21 Rx Naproxen [Naprosyn] 500 mg PO BID-W/MEALS 12/06/21 12/06/21 History Allergies Allergy/AdvReac Type Severity Reaction Status Date / Time No Known Allergies Allergy Verified 11/19/21 07:34 Physical Exam Vitals: Vital Signs Temp Pulse Pulse Resp BP BP Pulse Ox 12/07/21 10:20 12/07/21 10:00 66 22 97/66 100 12/07/21 09:30 64 22 92/56 98 12/07/21 09:00 66 22 92/58 98 12/07/21 08:30 67 22 93/64 98 12/07/21 08:00 97.6 F 69 22 91/56 98 12/07/21 07:30 62 22 89/58 12/07/21 07:00 67 22 94/70 98 12/07/21 06:30 69 22 97/71 12/07/21 06:00 67 26 H 92/56 100 12/07/21 05:30 68 28 H 94/57 98 12/07/21 05:00 71 28 H 117/81 98 12/07/21 04:30 73 22 119/86 12/07/21 04:15 12/07/21 04:00 96.5 F L 79 22 107/77 12/07/21 03:30 74 22 107/72 12/07/21 03:00 74 22 105/74 12/07/21 02:30 73 22 98/65 97 12/07/21 02:20 75 22 100/62 98 12/07/21 02:10 73 22 93/61 96 12/07/21 02:00 73 22 94/57 97 12/07/21 01:50 72 22 88/56 97 12/07/21 01:40 74 22 90/57 95 12/07/21 01:30 79 22 88/50 97 12/07/21 01:20 79 22 85/49 97 12/07/21 01:10 81 22 83/49 97 12/07/21 01:00 84 22 89/47 96 12/07/21 00:50 86 22 86/49 96 12/07/21 00:40 89 22 90/51 96 12/07/21 00:30 96 22 98/59 96 12/07/21 00:20 107 H 22 105/82 92 L 12/07/21 00:15 12/07/21 00:10 93 22 97/59 99 12/07/21 00:00 96.6 F L 93 22 104/58 99 12/06/21 23:50 106 H 22 132/122 98 12/06/21 23:40 22 121/71 98 12/06/21 23:39 12/06/21 23:30 115 H 23 144/116 99 12/06/21 23:20 96.9 F L 125 H 22 133/100 99 12/06/21 23:10 97 15 99/57 97 12/06/21 23:07 12/06/21 23:00 93 97/57 96 12/06/21 22:50 101 H 99/58 96 12/06/21 22:40 101 H 17 100/62 96 12/06/21 22:20 111 H 109/52 94 L 12/06/21 22:10 99.1 F 122 H 101/59 12/06/21 22:05 117 H 97/59 97 12/06/21 19:17 98.0 F 68 16 123/75 99 12/06/21 16:14 97.9 F 78 17 99/58 95 12/06/21 16:13 97.8 F 78 17 95 12/06/21 14:01 98.4 F 94 16 94/57 12/06/21 11:54 98.2 F 130 H 16 137/104 96 FiO2 12/07/21 10:20 35 12/07/21 10:00 12/07/21 09:30 12/07/21 09:00 12/07/21 08:30 12/07/21 08:00 40 12/07/21 07:30 12/07/21 07:00 40 12/07/21 06:30 12/07/21 06:00 12/07/21 05:30 12/07/21 05:00 12/07/21 04:30 12/07/21 04:15 40 12/07/21 04:00 40 12/07/21 03:30 12/07/21 03:00 12/07/21 02:30 12/07/21 02:20 12/07/21 02:10 12/07/21 02:00 12/07/21 01:50 12/07/21 01:40 12/07/21 01:30 12/07/21 01:20 12/07/21 01:10 12/07/21 01:00 12/07/21 00:50 12/07/21 00:40 12/07/21 00:30 12/07/21 00:20 12/07/21 00:15 40 12/07/21 00:10 12/07/21 00:00 40 12/06/21 23:50 12/06/21 23:40 12/06/21 23:39 100 12/06/21 23:30 12/06/21 23:20 100 12/06/21 23:10 12/06/21 23:07 100 12/06/21 23:00 12/06/21 22:50 12/06/21 22:40 12/06/21 22:20 12/06/21 22:10 12/06/21 22:05 12/06/21 19:17 12/06/21 16:14 12/06/21 16:13 12/06/21 14:01 12/06/21 11:54 Intake and Output 12/06/21 12/07/21 12/07/21 22:59 06:59 14:59 Intake Total 472.109 270.726 Output Total 950 105 Balance -477.891 165.726 Intake: IV 350 240 0.9% KVO 100 40 Lacosamide IV 200 mg In 50 Sodium Chloride 0.9% 50 ml @ 100 mls/hr IVPB ONCE ONE Rx#:[id number] Phenytoin Sodium Inj 1, 100 000 mg In Sodium Chloride 0.9% 100 ml @ 200 mls/hr IVPB ONCE ONE Rx#: [id number] Piperacillin-Tazobactam 3 100 100 .375 gm In Sodium Chloride 0.9% 100 ml @ 25 mls/hr IVPB Q8HR [facility] Rx# :[id number] levETIRAcetam IV 1,000 mg 100 In Saline 1 100ml.bag @ 400 mls/hr IVPB Q12HR [facility] Rx#:[id number] Intake, IV Titration 122.109 30.726 Amount Midazolam HCl 50 mg In 1.033 24.617 Sodium Chloride 0.9% 40 ml @ 1 MG/HR 1 mls/hr IV .Q24H [facility] Rx#:[id number] propofoL 1,000 mg In 121.076 6.109 Empty Bag 1 bag @ 5 MCG/ KG/MIN 1.823 mls/hr IV . Q24H [facility] Rx#:[id number] Output: Gastric Drainage 350 Urine 600 105 Other: Voiding Method Indwelling Catheter Indwelling Catheter # Voids 1 Weight 66 kg Results CBC & Chem 7: 12/07/21 05:35 12/07/21 05:35 Labs: Abnormal Lab Results - Last 24 Hours (Table) 12/06/21 12/06/21 12/06/21 Range/Units 12:12 12:12 12:12 WBC 19.4 H (3.8-10.6) k/uL RBC (4.30-5.90) m/uL MCV 101.3 H (80.0-100.0) fL Neutrophils # 16.9 H (1.3-7.7) k/uL ABG pO2 (83-108) mmHg ABG Total CO2 (19-24) mmol/L ABG O2 Saturation (94-97) % Chloride 110 H (98-107) mmol/L Carbon Dioxide 16 L (22-30) mmol/L BUN 28 H (9-20) mg/dL Glucose 120 H (74-99) mg/dL Plasma Lactic Acid Jonathon 7.4 H* (0.7-2.0) mmol/L Total Protein 9.0 H (6.3-8.2) g/dL Albumin (3.5-5.0) g/dL Ur Specific [place] (1.001-1.035) Urine Protein (Negative) Urine Bacteria (None) /hpf Urine Mucus (None) /hpf Urine Opiates Screen (NotDetected) U Tricyclic Antidepress (NotDetected) Ur Amphetamines Screen (NotDetected) U Benzodiazepines Scrn (NotDetected) Urine Cocaine Screen (NotDetected) U Marijuana (THC) Screen (NotDetected) 12/06/21 12/06/21 12/07/21 Range/Units 17:32 17:32 00:10 WBC (3.8-10.6) k/uL RBC (4.30-5.90) m/uL MCV (80.0-100.0) fL Neutrophils # (1.3-7.7) k/uL ABG pO2 >400 H (83-108) mmHg ABG Total CO2 27 H (19-24) mmol/L ABG O2 Saturation 100.0 H (94-97) % Chloride (98-107) mmol/L Carbon Dioxide (22-30) mmol/L BUN (9-20) mg/dL Glucose (74-99) mg/dL Plasma Lactic Acid Jonathon (0.7-2.0) mmol/L Total Protein (6.3-8.2) g/dL Albumin (3.5-5.0) g/dL Ur Specific [place] >1.050 H (1.001-1.035) Urine Protein 1+ H (Negative) Urine Bacteria Rare H (None) /hpf Urine Mucus Rare H (None) /hpf Urine Opiates Screen Detected H (NotDetected) U Tricyclic Antidepress Detected H (NotDetected) Ur Amphetamines Screen Detected H (NotDetected) U Benzodiazepines Scrn Detected H (NotDetected) Urine Cocaine Screen Detected H (NotDetected) U Marijuana (THC) Screen Detected H (NotDetected) 12/07/21 12/07/21 12/07/21 Range/Units 05:35 05:35 05:41 WBC 12.8 H (3.8-10.6) k/uL RBC 3.91 L (4.30-5.90) m/uL MCV 100.6 H (80.0-100.0) fL Neutrophils # 10.0 H (1.3-7.7) k/uL ABG pO2 159 H (83-108) mmHg ABG Total CO2 25 H (19-24) mmol/L ABG O2 Saturation 99.5 H (94-97) % Chloride 111 H (98-107) mmol/L Carbon Dioxide 21 L (22-30) mmol/L BUN 22 H (9-20) mg/dL Glucose (74-99) mg/dL Plasma Lactic Acid Jonathon (0.7-2.0) mmol/L Total Protein 6.1 L (6.3-8.2) g/dL Albumin 3.3 L (3.5-5.0) g/dL Ur Specific [place] (1.001-1.035) Urine Protein (Negative) Urine Bacteria (None) /hpf Urine Mucus (None) /hpf Urine Opiates Screen (NotDetected) U Tricyclic Antidepress (NotDetected) Ur Amphetamines Screen (NotDetected) U Benzodiazepines Scrn (NotDetected) Urine Cocaine Screen (NotDetected) U Marijuana (THC) Screen (NotDetected) Assessment and Plan Plan: 1patient presented to hospital with acute nausea vomiting in this patient concerning for possible seizure activity with evidence of left lower lobe atelectasis/effusion concerning for possible aspiration pneumonitis, the patient abdominal soft frontal examination see abdominal pelvis was negative urine was negative and there is no evidence of any cellulitis. 2blood sputum and urine culture have been obtained which will be followed. 3we will check inflammatory markers. 4continue with Zosyn while waiting for the culture to finalize. We will follow on clinical condition and cultures to further adjust medication if needed Thank you for this consultation will follow this patient along with you Time with Patient: Greater than 30
[2021-12-07 23:43] LABS: Glucose,Whole Blood 81 mg/dL (70-110)
[2021-12-08 05:46] LABS: Glucose,Whole Blood 96 mg/dL (70-110)
[2021-12-08 05:49] LABS: ABG Base Excess -1.1 mmol/L; ABG HCO3 23 mmol/L (21-25); ABG Oxygen Saturation 98.4 % (94-97); ABG PCO2 35 mmHg (35-45); ABG PH 7.43 (7.35-7.45); ABG PO2 99 mmHg (83-108); ABG TCO2 24 mmol/L (19-24); Allen Test Performed? Yes
--- NOTE | 2021-12-08 06:21 | XR ---
EXAMINATION TYPE: XR chest 1V portable DATE OF EXAM: 12/08/2021 CLINICAL HISTORY: Difficulty breathing progress study. TECHNIQUE: Single AP portable upright view of the chest is obtained. COMPARISON: Chest x-ray from one day earlier and older studies. FINDINGS: Stable endotracheal and orogastric tubes. Patchy left basilar opacity. Right lung remains clear. Cardiac silhouette size stable and within norm al limits. Osseous structures are intact. IMPRESSION: Patchy left basilar atelectasis and/or infiltrate redemonstrated. No significant change f rom one day earlier.
[2021-12-08 07:13] LABS: Basophils # (A) 0.1 k/uL (0-0.2); Basophils % (A) 1 %; Eosinophils # (A) 0.2 k/uL (0-0.7); Eosinophils % (A) 3 %; HCT 37.4 % (39.0-53.0); HGB 12.4 gm/dL (13.0-17.5); Lymphocytes # (A) 1.3 k/uL (1.0-4.8); Lymphocytes % (A) 15 %; MCH 33.7 pg (25.0-35.0); MCHC 33.1 g/dL (31.0-37.0); MCV 101.6 fL (80.0-100.0); Mean Platelet Volume 7.5; Monocytes # (A) 0.6 k/uL (0-1.0); Monocytes % (A) 7 %; Neutrophils # (A) 6.5 k/uL (1.3-7.7); Neutrophils % (A) 75 %; Platelet Count 223 k/uL (150-450); RBC 3.68 m/uL (4.30-5.90); RDW 11.6 % (11.5-15.5); WBC 8.8 k/uL (3.8-10.6)
[2021-12-08 07:30] LABS: African American GFR (CKD) >90 (>60 ml/min/1.73 sqM); Anion Gap 6 mmol/L; Blood Urea Nitrogen 20 mg/dL (9-20); Calcium 8.2 mg/dL (8.4-10.2); Carbon Dioxide 20 mmol/L (22-30); Chloride 115 mmol/L (98-107); Glucose 97 mg/dL (74-99); Non-African American GFR(CKD) >90 (>60 ml/min/1.73 sqM); Potassium 3.5 mmol/L (3.5-5.1); Sodium 141 mmol/L (137-145)
[2021-12-08] MEDS: levETIRAcetam IV 1,000 MG in SALINE 1 100ML.BAG IVPB SCH ×2 (08:02→20:39)
[2021-12-08] MEDS: CHLORHEXIDINE GLUCONATE 15 ML CUP MUCOUS MEM SCH (08:02)
[2021-12-08] MEDS: PIPERACILLIN-TAZOBACTAM 3.375 GM in SODIUM CHLORIDE 0.9% 100 ML IVPB SCH ×2 (08:02→18:13)
[2021-12-08] MEDS: ENOXAPARIN 40 MG/0.4 ML SYRINGE SQ SCH (08:03)
[2021-12-08] MEDS: PANTOPRAZOLE 40 MG/10 ML VIAL IV SCH (08:03)
[2021-12-08] MEDS: SUCRALFATE 1 GM TAB PO SCH ×2 (08:03→20:39)
[2021-12-08] MEDS: THIAMINE 100 MG TAB PO SCH (08:03)
[2021-12-08] MEDS: DEXMEDETOMIDINE/0.9% NACL(PMX) 400 MCG in EMPTY BAG 1 BAG IV SCH (08:52)
--- NOTE | 2021-12-08 10:37 | P.PN ---
Subjective Progress Note Date: 12/08/21 Principal diagnosis: Acute hypoxic respiratory failure secondary to status epilepticus, possible pseudoseizure This is a 36-year-old white male, known history of stomach ulcers, presented to the ER yesterday with intractable nausea and vomiting. Drug screen was positive for multiple drugs including marijuana, amphetamine, tricyclics, cocaine, and benzodiazepines. Patient also mentioned that he may have had a seizure that was witnessed by his friend. While in the triage area in the ER, patient started having uncontrollable shaking, brought back to the trauma bay and suddenly patient stopped shaking set up and began throwing up. He had nonbloody emesis. Apparently the patient had some questionable history of previous seizures and he was a very poor historian at the time of presentation. Patient was seen by neurology on consultation, and apparently he had multiple episodes of seizure- like activities, and the neurologist felt that the patient has status epileptic us. Patient was transferred to the ICU, and upon arrival to the ICU, patient was intubated because of status epilepticus, placed on propofol and Versed, and I was asked to see him on consultation. Patient is now on assist control rate of 22, volume 450 FiO2 40% PEEP of 5 ABG showed a pO2 of 159 pCO2 36 pH of 7.44. Patient is maintaining on Versed at 2 mg per hour up a fall 50 mcg/kg/m Keppra 1 g every 12 hours is also on Zosyn empirically. After evaluating the patient, I cut down his FiO2 to 35%, and patient is scheduled to undergo EEG at 1 PM today. I have also recommended starting the patient on enteral feedings, GI and DVT prophylaxis also recommended. Reevaluated today on 12/18/2021, patient remains in the ICU, intubated and mechanically ventilated. He is on assist control rate of 22,000 volume 450 FiO2 35% PEEP of 5 ABG showed a pO2 of 99 pCO2 of 35 pH of 7.43 patient remains on Versed at 2 mg per hour and propofol at 55 mcg/kg/m. Patient is on IV fluid at KVO. EEG showed mild encephalopathy, no seizure activity. Chest x-ray showed improvement in his left basilar opacity. Labs were all reviewed CBC and basic metabolic profile is normal. Patient remains sedated, however I plan to discontinue Versed, tapered down propofol and start the patient on Precedex today, gradually increase the Precedex and gradually taper off the propofol, my plan is to wean the patient and possibly extubate him in the next few hours. Objective - Vital Signs Vital signs: Vital Signs Temp 97.6 F 12/08/21 04:00 Pulse 60 12/08/21 07:00 Resp 22 12/08/21 07:00 BP 102/60 12/08/21 07:00 Pulse Ox 97 12/08/21 07:00 FiO2 35 12/08/21 08:00 Intake & Output 12/07/21 12/08/21 12/08/21 18:59 06:59 18:59 Intake Total 478.437 5299.736 118.047 Output Total 355 445 25 Balance 357.964 689.736 93.047 Weight 66 kg 68 kg Intake: IV 520 520 20 0.9% KVO 220 220 20 Piperacillin-Tazobactam 3 200 200 .375 gm In Sodium Chloride 0.9% 100 ml @ 25 mls/hr IVPB Q8HR [facility] Rx# :[id number] levETIRAcetam IV 1,000 mg 100 100 In Saline 1 100ml.bag @ 400 mls/hr IVPB Q12HR [facility] Rx#:[id number] Intake, IV Titration 172.964 170.736 59.047 Amount Dexmedetomidine/0.9% NaCl 2.310 6.628 (Pmx) 400 mcg In Empty Bag 1 bag @ 0.2 MCG/KG/HR 3.3 mls/hr IV .Q24H [facility] Rx#:[id number] Midazolam HCl 50 mg In 29.333 17.234 5.967 Sodium Chloride 0.9% 40 ml @ 1 MG/HR 1 mls/hr IV .Q24H [facility] Rx#:[id number] propofoL 1,000 mg In 141.321 153.502 46.452 Empty Bag 1 bag @ 5 MCG/ KG/MIN 1.823 mls/hr IV . Q24H [facility] Rx#:[id number] Tube Feeding 20 354 39 Other 90 Output: Urine 355 445 25 Other: Voiding Method Indwelling Catheter Indwelling Catheter - Exam Physical Exam: Revealed 36-year-old white male sedated, intubated, mechanically ventilated. Head: Atraumatic, normocephalic endotracheal tube and orogastric tube are intact HEENT:[Neck is supple.] [No neck masses.] [No thyromegaly.] [No JVD.] Chest: [Clear throughout, no crackles, no rhonchi, no wheezes.] Cardiac Exam: [Normal S1 and S2, no S3 gallop, no murmur.] Abdomen: [Soft, nontender, no megaly, no rebound, no guarding, normal bowel sounds.] Extremities: [No clubbing, no edema, no cyanosis.] Neurological Exam: Cannot assess, patient is sedated, pupils are equally reactive to light. Psychiatric: Could not assess. Skin: No rashes. - Labs CBC & Chem 7: 12/08/21 06:48 12/08/21 06:48 Labs: Abnormal Lab Results - Last 24 Hours (Table) 12/07/21 12/08/21 12/08/21 Range/Units 18:00 05:45 06:48 RBC 3.68 L (4.30-5.90) m/uL Hgb 12.4 L (13.0-17.5) gm/dL Hct 37.4 L (39.0-53.0) % MCV 101.6 H (80.0-100.0) fL ABG O2 Saturation 98.4 H (94-97) % Chloride (98-107) mmol/L Carbon Dioxide (22-30) mmol/L POC Glucose (mg/dL) 66 L (70-110) mg/dL Calcium (8.4-10.2) mg/dL 12/08/21 Range/Units 06:48 RBC (4.30-5.90) m/uL Hgb (13.0-17.5) gm/dL Hct (39.0-53.0) % MCV (80.0-100.0) fL ABG O2 Saturation (94-97) % Chloride 115 H (98-107) mmol/L Carbon Dioxide 20 L (22-30) mmol/L POC Glucose (mg/dL) (70-110) mg/dL Calcium 8.2 L (8.4-10.2) mg/dL Microbiology - Last 24 Hours (Table) 12/06/21 23:35 Gram Stain - Preliminary Sputum Sputum Culture - Preliminary 12/06/21 14:10 Blood Culture Gram Stain - Preliminary Blood Blood Culture - Preliminary Coagulase Negative Staph 12/06/21 13:55 Blood Culture - Preliminary Blood No Growth after 24 hours 12/07/21 04:35 Urine Culture - Preliminary Urine,Catheterized 12/06/21 14:10 Blood Culture - Final Blood Assessment and Plan Assessment: Impression: Acute hypoxic respiratory failure secondary to status epilepticus, possible pseudoseizure EEG did not show any evidence of seizure activity. Multiple drugs toxicity based on drug screen, could be contributing factors to his seizures and GI symptoms. Questionable history of seizures Recommendation: Continue ventilatory support Taper and discontinue Versed and propofol Start patient on Precedex, anticipate weaning and extubation today. Hold nutritional support for now. DVT prophylaxis Continue Zosyn empirically for possible aspiration Will continue to follow. We'll continue to monitor in the ICU post extubation if that is to happen today Critical care Time is over 30 minutes Time with Patient: Greater than 30
[2021-12-08] MEDS ORDERED: HALOPERIDOL LACTATE 5 MG/ML 1 ML VIAL IVP STA (10:47)
[2021-12-08 12:48] LABS: Glucose,Whole Blood 66 mg/dL (70-110)
[2021-12-08 13:12] LABS: Glucose,Whole Blood 82 mg/dL (70-110)
--- NOTE | 2021-12-08 13:20 | P.PN ---
Subjective Progress Note Date: 12/08/21 The patient is seen at bedside and per his nurse no clinical seizure. patient was extubated early AM today. He denies of any illicit drug use. He states he uses Marijuan use. But his urine drug screen was positive for polysubtance use including cocaine which he denies. Objective - Vital Signs Vital signs: Vital Signs Temp 98.2 F 12/08/21 12:00 Pulse 87 12/08/21 13:00 Resp 14 12/08/21 13:00 BP 109/57 12/08/21 13:00 Pulse Ox 96 12/08/21 13:00 FiO2 35 12/08/21 08:00 Intake & Output 12/07/21 12/08/21 12/08/21 18:59 06:59 18:59 Intake Total 266.031 1410.736 556.652 Output Total 355 445 420 Balance 357.964 689.736 136.652 Weight 66 kg 68 kg Intake: IV 520 520 340 0.9% KVO 220 220 140 Piperacillin-Tazobactam 3 200 200 100 .375 gm In Sodium Chloride 0.9% 100 ml @ 25 mls/hr IVPB Q8HR [facility] Rx# :[id number] levETIRAcetam IV 1,000 mg 100 100 100 In Saline 1 100ml.bag @ 400 mls/hr IVPB Q12HR [facility] Rx#:[id number] Intake, IV Titration 172.964 170.736 69.652 Amount Dexmedetomidine/0.9% NaCl 2.310 17.051 (Pmx) 400 mcg In Empty Bag 1 bag @ 0.2 MCG/KG/HR 3.3 mls/hr IV .Q24H [facility] Rx#:[id number] Midazolam HCl 50 mg In 29.333 17.234 5.967 Sodium Chloride 0.9% 40 ml @ 1 MG/HR 1 mls/hr IV .Q24H [facility] Rx#:[id number] propofoL 1,000 mg In 141.321 153.502 46.634 Empty Bag 1 bag @ 5 MCG/ KG/MIN 1.823 mls/hr IV . Q24H [facility] Rx#:[id number] Tube Feeding 20 354 117 Other 90 30 Output: Urine 355 445 420 Other: Voiding Method Indwelling Catheter Indwelling Catheter Indwelling Catheter - Exam GENERAL: The patient is lying in bed and does not seem in acute distress. Appears much older than his age. NEUROLOGICAL: Limited since just recently extubated. The patient is drowsy but is awakeable. Is oriented to self. Is following simple commands. No aphasia. Cranial Nerves: No facial weakness. No dysarthria. Motor: Strength: Is limited because of cooperation. But moving arms and legs and per nursing staff was moving everything symmetrically to them (just earlier). Some of the workup in our facility consisted of: Initial plasma lactate acetate is 7.4-->1.1, BUN is 28, initial serum glucose is 120, Initial white blood cell is 19.4-->12.8 and slightly neutrophilic--resolved. TSH: 1.010 CT of the head is reported as no suspicious acute intracranial changes. Follow up MRI can be performed as clinically indicated. I personally reviewed CT of the head and I agree with the report CT cervical spine is reported as unremarkable. Urine drug screen: +ve opiates, tricyclic, amphetamine, benzo, cocaine, marijuana. serum Alcohol <10 Routine EEG is abnormal. The background slowing suggestive of mild encephalopathy. There is no focal slowing, epileptiform discharges or seizure in the EEG - Labs CBC & Chem 7: 12/08/21 06:48 12/08/21 06:48 Labs: Abnormal Lab Results - Last 24 Hours (Table) 12/07/21 12/08/21 12/08/21 Range/Units 18:00 05:45 06:48 RBC 3.68 L (4.30-5.90) m/uL Hgb 12.4 L (13.0-17.5) gm/dL Hct 37.4 L (39.0-53.0) % MCV 101.6 H (80.0-100.0) fL ABG O2 Saturation 98.4 H (94-97) % Chloride (98-107) mmol/L Carbon Dioxide (22-30) mmol/L POC Glucose (mg/dL) 66 L (70-110) mg/dL Calcium (8.4-10.2) mg/dL 12/08/21 12/08/21 Range/Units 06:48 12:43 RBC (4.30-5.90) m/uL Hgb (13.0-17.5) gm/dL Hct (39.0-53.0) % MCV (80.0-100.0) fL ABG O2 Saturation (94-97) % Chloride 115 H (98-107) mmol/L Carbon Dioxide 20 L (22-30) mmol/L POC Glucose (mg/dL) 66 L (70-110) mg/dL Calcium 8.2 L (8.4-10.2) mg/dL Microbiology - Last 24 Hours (Table) 12/07/21 04:35 Urine Culture - Final Urine,Catheterized 12/06/21 23:35 Gram Stain - Preliminary Sputum Sputum Culture - Preliminary 12/06/21 14:10 Blood Culture Gram Stain - Preliminary Blood Blood Culture - Preliminary Coagulase Negative Staph 12/06/21 13:55 Blood Culture - Preliminary Blood No Growth after 24 hours 12/06/21 14:10 Blood Culture - Final Blood Assessment and Plan Assessment: * Recurrent episodes of seizure-like activity and it was felt patient was in status epilepticus (per Primary team some his episodes seemed pseudo and some seemed true in nature). As result patient was intubated and on ventilator for airway protection--resolved and patient is extubated today. * Leukocytosis, lactic acid and elevated labs seems a component reactive to his seizure and not just emisis--resolved. * Acute on chronic emisis, vomiting with abdominal pain (had multiple ED physician for the same complaint) * History of reported seizure (few months ago) and not on antiepileptic drug * Encephalopathy possible due to seizure, medication induced (Versed and Propofo l) * Polysubstance abuse (Urine drug scree is positive for opiates, TCA, Amphetamine, benzo, cocaine and Marijuana). Patient denies of using these drug except for marijuana * History of Chronic pancreatitis * History of Alcohol use and reported sober 4-5 years ago * History of ulcer * Nicotine use * Marijuana use Plan: Continue Keppra to 1gm bid (was not on any antiepileptic drugs prior). Pending MRI Brain w/ and w/o: Seizure protocol. IF patient refuses then can be obtained as outpatient. Continue neuro checks. On seizure precaution and pads. Continue thiamine 100mg daily. Patient was counseled on polysubstance cessation. Will defer the rest of medical management to the primary team and ICU team. The plan is discussed with the patient and his nurse. Derick Woods M.D. Neuro-Hospitalist Time with Patient: Less than 30
--- NOTE | 2021-12-08 15:19 | P.PN ---
Subjective Progress Note Date: 12/08/21 Principal diagnosis: seizures Patient is currently tearful, very anxious. He states he wants his at the bedside. He said he wants to move out of his grandparent's house. He states he and his have been having problems with them. He states he would "take a bullit for his ". Objective - Vital Signs Vital signs: Vital Signs Temp 98.2 F 12/08/21 12:00 Pulse 89 12/08/21 14:00 Resp 14 12/08/21 13:00 BP 121/77 12/08/21 14:00 Pulse Ox 96 12/08/21 14:00 FiO2 35 12/08/21 08:00 Intake & Output 12/07/21 12/08/21 12/08/21 18:59 06:59 18:59 Intake Total 038.501 7001.736 806.652 Output Total 355 445 620 Balance 357.964 689.736 186.652 Weight 66 kg 68 kg Intake: IV 520 520 340 0.9% KVO 220 220 140 Piperacillin-Tazobactam 3 200 200 100 .375 gm In Sodium Chloride 0.9% 100 ml @ 25 mls/hr IVPB Q8HR [facility] Rx# :[id number] levETIRAcetam IV 1,000 mg 100 100 100 In Saline 1 100ml.bag @ 400 mls/hr IVPB Q12HR [facility] Rx#:[id number] Intake, IV Titration 172.964 170.736 69.652 Amount Dexmedetomidine/0.9% NaCl 2.310 17.051 (Pmx) 400 mcg In Empty Bag 1 bag @ 0.2 MCG/KG/HR 3.3 mls/hr IV .Q24H [facility] Rx#:[id number] Midazolam HCl 50 mg In 29.333 17.234 5.967 Sodium Chloride 0.9% 40 ml @ 1 MG/HR 1 mls/hr IV .Q24H [facility] Rx#:[id number] propofoL 1,000 mg In 141.321 153.502 46.634 Empty Bag 1 bag @ 5 MCG/ KG/MIN 1.823 mls/hr IV . Q24H [facility] Rx#:[id number] Oral 250 Tube Feeding 20 354 117 Other 90 30 Output: Urine 355 445 620 Other: Voiding Method Indwelling Catheter Indwelling Catheter Indwelling Catheter - Exam Constitutional: Intubated, sedated Eyes:Anicteric sclerae, moist conjunctiva, no lid-lag, PERRLA, ENMT: Oropharynx clear, no erythema, exudates Neck: Supple, FROM, no masses, or JVD, No carotid bruits, No thyromegaly Lungs: Clear to auscultation, Clear to percussion, Normal respiratory effort, no accessory muscle use Cardiovascular: Heart regular in rate and rhythm, No murmurs, gallops, or rubs, No peripheral edema Abdominal: Soft, Nontender, no guarding, rebound or rigidity, Normoactive bowel sounds, No hepatomegaly, No splenomegaly, No palpable mass Skin: Normal temperature, tone, texture, turgor, no induration, No subcutaneous nodules, No rash, lesions, No ulcers Extremities: No digital cyanosis, No clubbing, Pedal pulses intact and symmetrical, Radial pulses intact and symmetrical, No calf tenderness Neuro: Intubated, sedated - Labs CBC & Chem 7: 12/08/21 06:48 12/08/21 06:48 Labs: Abnormal Lab Results - Last 24 Hours (Table) 12/07/21 12/08/21 12/08/21 Range/Units 18:00 05:45 06:48 RBC 3.68 L (4.30-5.90) m/uL Hgb 12.4 L (13.0-17.5) gm/dL Hct 37.4 L (39.0-53.0) % MCV 101.6 H (80.0-100.0) fL ABG O2 Saturation 98.4 H (94-97) % Chloride (98-107) mmol/L Carbon Dioxide (22-30) mmol/L POC Glucose (mg/dL) 66 L (70-110) mg/dL Calcium (8.4-10.2) mg/dL 12/08/21 12/08/21 Range/Units 06:48 12:43 RBC (4.30-5.90) m/uL Hgb (13.0-17.5) gm/dL Hct (39.0-53.0) % MCV (80.0-100.0) fL ABG O2 Saturation (94-97) % Chloride 115 H (98-107) mmol/L Carbon Dioxide 20 L (22-30) mmol/L POC Glucose (mg/dL) 66 L (70-110) mg/dL Calcium 8.2 L (8.4-10.2) mg/dL Microbiology - Last 24 Hours (Table) 12/06/21 14:10 Blood Culture Gram Stain - Preliminary Blood Blood Culture - Preliminary Coagulase Negative Staph 12/07/21 04:35 Urine Culture - Final Urine,Catheterized 12/06/21 23:35 Gram Stain - Preliminary Sputum Sputum Culture - Preliminary 12/06/21 13:55 Blood Culture - Preliminary Blood No Growth after 24 hours 12/06/21 14:10 Blood Culture - Final Blood Assessment and Plan Plan: Acute hypoxemic respiratory failure Patient was seen by pulmonary, Currently extubated Status epilepticus He was loaded with Dilantin, vimpat, Keppra dose was increased to 1 g twice a day. He is being followed by neurology Monitor in ICU EEG showing mild encephalopathy with no epileptical discharges. Cannot have MRI due to current condition and anxiety, neuro ok with doing it outpatient. SIRS possible sepsis IV fluids [place] cultures sent Chest x-ray shoign possible LLL infiltrates vs atelectasis Continue on zosyn for now seen by ID Blood cx growing coag neg staphX 1 set Metabolic acidosis Likely sec to dehydration, can't r/u sepsis Improved. Hematochezia Unclear if true, will monitor hgb and monitor stools while hospitalized. Hypoglycemia Starting to eat now. Will keep checking Cyclic vomiting syndrome IV fluids Due to marijuana abuse, camp counselor to quit Hx of PUD/GI prophylaxis PPI IV
[2021-12-08 18:07] LABS: Glucose,Whole Blood 77 mg/dL (70-110)
[2021-12-08 18:31] LABS: Glucose,Whole Blood 64 mg/dL (70-110)
[2021-12-08 18:52] LABS: Glucose,Whole Blood 96 mg/dL (70-110)
[2021-12-08] MEDS ORDERED: HALOPERIDOL LACTATE 5 MG/ML 1 ML VIAL IVP PRN (19:19)
--- NOTE | 2021-12-08 20:12 | P.PN ---
Subjective Progress Note Date: 12/08/21 Principal diagnosis: Possible aspiration pneumonia Patient is a 36-year-old male who was brought into the ER after apparently the patient did have a seizure activity and concern for status epilepticus, patient was transferred to ICU and intubated protect the airways and has a concern for possible aspiration pneumonia, patient has been extubated morning of 12/08/2021 on today's evaluation 12/08/2021, the patient is afebrile, the patient is breathing comfortably, the patient has been asking for his and did not answer any further questions no vomiting or diarrhea has been reported by the nursing staff Objective - Vital Signs Vital signs: Vital Signs Temp 98.1 F 12/08/21 08:00 Pulse 84 12/08/21 11:00 Resp 22 12/08/21 11:00 BP 126/88 12/08/21 11:00 Pulse Ox 94 L 12/08/21 11:00 FiO2 35 12/08/21 08:00 Intake & Output 12/07/21 12/08/21 12/08/21 18:59 06:59 18:59 Intake Total 013.879 0186.736 516.652 Output Total 355 445 270 Balance 357.964 689.736 246.652 Weight 66 kg 68 kg Intake: IV 520 520 300 0.9% KVO 220 220 100 Piperacillin-Tazobactam 3 200 200 100 .375 gm In Sodium Chloride 0.9% 100 ml @ 25 mls/hr IVPB Q8HR [facility] Rx# :[id number] levETIRAcetam IV 1,000 mg 100 100 100 In Saline 1 100ml.bag @ 400 mls/hr IVPB Q12HR [facility] Rx#:[id number] Intake, IV Titration 172.964 170.736 69.652 Amount Dexmedetomidine/0.9% NaCl 2.310 17.051 (Pmx) 400 mcg In Empty Bag 1 bag @ 0.2 MCG/KG/HR 3.3 mls/hr IV .Q24H [facility] Rx#:[id number] Midazolam HCl 50 mg In 29.333 17.234 5.967 Sodium Chloride 0.9% 40 ml @ 1 MG/HR 1 mls/hr IV .Q24H [facility] Rx#:[id number] propofoL 1,000 mg In 141.321 153.502 46.634 Empty Bag 1 bag @ 5 MCG/ KG/MIN 1.823 mls/hr IV . Q24H [facility] Rx#:[id number] Tube Feeding 20 354 117 Other 90 30 Output: Urine 355 445 270 Other: Voiding Method Indwelling Catheter Indwelling Catheter - Exam GENERAL DESCRIPTION: A middle-age male lying in bed in no distress RESPIRATORY SYSTEM: Unlabored breathing , coarse breath sounds bilaterally HEART: S1 S2 regular rate and rhythm , ABDOMEN: Soft , no tenderness EXTREMITIES: No edema feet - Labs CBC & Chem 7: 12/08/21 06:48 12/08/21 06:48 Labs: Abnormal Lab Results - Last 24 Hours (Table) 12/07/21 12/08/21 12/08/21 Range/Units 18:00 05:45 06:48 RBC 3.68 L (4.30-5.90) m/uL Hgb 12.4 L (13.0-17.5) gm/dL Hct 37.4 L (39.0-53.0) % MCV 101.6 H (80.0-100.0) fL ABG O2 Saturation 98.4 H (94-97) % Chloride (98-107) mmol/L Carbon Dioxide (22-30) mmol/L POC Glucose (mg/dL) 66 L (70-110) mg/dL Calcium (8.4-10.2) mg/dL 12/08/21 Range/Units 06:48 RBC (4.30-5.90) m/uL Hgb (13.0-17.5) gm/dL Hct (39.0-53.0) % MCV (80.0-100.0) fL ABG O2 Saturation (94-97) % Chloride 115 H (98-107) mmol/L Carbon Dioxide 20 L (22-30) mmol/L POC Glucose (mg/dL) (70-110) mg/dL Calcium 8.2 L (8.4-10.2) mg/dL Microbiology - Last 24 Hours (Table) 12/06/21 23:35 Gram Stain - Preliminary Sputum Sputum Culture - Preliminary 12/06/21 14:10 Blood Culture Gram Stain - Preliminary Blood Blood Culture - Preliminary Coagulase Negative Staph 12/06/21 13:55 Blood Culture - Preliminary Blood No Growth after 24 hours 12/07/21 04:35 Urine Culture - Preliminary Urine,Catheterized 12/06/21 14:10 Blood Culture - Final Blood Assessment and Plan (1) Aspiration pneumonia Current Visit: Yes Status: Acute Code(s): J69.0 - PNEUMONITIS DUE TO INHALATION OF FOOD AND VOMIT SNOMED Code(s): 212126834 Plan: 1patient presented to hospital with acute nausea vomiting in this patient concerning for possible seizure activity with evidence of left lower lobe atelectasis/effusion concerning for possible aspiration pneumonitis, the patient abdominal soft frontal examination see abdominal pelvis was negative urine was negative and there is no evidence of any cellulitis. 2sputum and urine culture have been obtained which are currently pending. We'll start 3blood culture positive for coag negative staph likely skin contaminant no need for vancomycin 4patient tocontinue with Zosyn while waiting for the culture to finalize. Time with Patient: Less than 30
[2021-12-08 23:51] LABS: Glucose,Whole Blood 90 mg/dL (70-110)
[2021-12-09] MEDS: PIPERACILLIN-TAZOBACTAM 3.375 GM in SODIUM CHLORIDE 0.9% 100 ML IVPB SCH ×2 (01:19→08:14)
[2021-12-09 06:03] LABS: Glucose,Whole Blood 82 mg/dL (70-110)
[2021-12-09 06:11] LABS: HCT 39.2 % (39.0-53.0); HGB 13.4 gm/dL (13.0-17.5); MCH 33.7 pg (25.0-35.0); MCHC 34.2 g/dL (31.0-37.0); MCV 98.6 fL (80.0-100.0); Mean Platelet Volume 7.2; Platelet Count 266 k/uL (150-450); RBC 3.97 m/uL (4.30-5.90); RDW 11.4 % (11.5-15.5); WBC 8.6 k/uL (3.8-10.6)
[2021-12-09 06:20] LABS: African American GFR (CKD) >90 (>60 ml/min/1.73 sqM); Anion Gap 1 mmol/L; Blood Urea Nitrogen 4 mg/dL (9-20); Calcium 8.2 mg/dL (8.4-10.2); Carbon Dioxide 29 mmol/L (22-30); Chloride 106 mmol/L (98-107); Glucose 93 mg/dL (74-99); Non-African American GFR(CKD) >90 (>60 ml/min/1.73 sqM); Potassium 3.7 mmol/L (3.5-5.1); Sodium 136 mmol/L (137-145)
[2021-12-09] MEDS: ENOXAPARIN 40 MG/0.4 ML SYRINGE SQ SCH (08:15)
[2021-12-09] MEDS: SUCRALFATE 1 GM TAB PO SCH (08:15)
[2021-12-09] MEDS: PANTOPRAZOLE 40 MG/10 ML VIAL IV SCH (08:15)
[2021-12-09] MEDS: THIAMINE 100 MG TAB PO SCH (08:15)
[2021-12-09] MEDS: levETIRAcetam IV 1,000 MG in SALINE 1 100ML.BAG IVPB SCH (08:17)
[2021-12-09 11:24] LABS: Glucose,Whole Blood 86 mg/dL (70-110)
--- NOTE | 2021-12-09 11:32 | P.PN ---
Subjective Progress Note Date: 12/09/21 Principal diagnosis: seizures Patient still anxious and tearful. He keeps asking about . According to nursing he rolled over the edge of the bed and fell last night. His blood glucose continues to drop, was 64 last evening. Objective - Vital Signs Vital signs: Vital Signs Temp 98.9 F 12/09/21 04:00 Pulse 78 12/09/21 11:00 Resp 13 12/09/21 11:00 BP 123/77 12/09/21 11:00 Pulse Ox 95 12/09/21 09:00 FiO2 35 12/08/21 08:00 Intake & Output 12/08/21 12/09/21 12/09/21 18:59 06:59 18:59 Intake Total 195.682 1707 350 Output Total 1595 1000 0 Balance -778.348 290 350 Weight 68.1 kg Intake: IV 350 210 200 0.9% KVO 150 10 Piperacillin-Tazobactam 3 100 100 100 .375 gm In Sodium Chloride 0.9% 100 ml @ 25 mls/hr IVPB Q8HR [facility] Rx# :[id number] levETIRAcetam IV 1,000 mg 100 100 100 In Saline 1 100ml.bag @ 400 mls/hr IVPB Q12HR [facility] Rx#:[id number] Intake, IV Titration 69.652 Amount Dexmedetomidine/0.9% NaCl 17.051 (Pmx) 400 mcg In Empty Bag 1 bag @ 0.2 MCG/KG/HR 3.3 mls/hr IV .Q24H [facility] Rx#:[id number] Midazolam HCl 50 mg In 5.967 Sodium Chloride 0.9% 40 ml @ 1 MG/HR 1 mls/hr IV .Q24H [facility] Rx#:[id number] propofoL 1,000 mg In 46.634 Empty Bag 1 bag @ 5 MCG/ KG/MIN 1.823 mls/hr IV . Q24H [facility] Rx#:[id number] Oral 250 1080 150 Tube Feeding 117 Other 30 Output: Urine 1595 1000 0 Other: Voiding Method Indwelling Catheter Urinal # Voids 1 1 1 # Bowel Movements 1 1 - Exam Constitutional: Intubated, sedated Eyes:Anicteric sclerae, moist conjunctiva, no lid-lag, PERRLA, ENMT: Oropharynx clear, no erythema, exudates Neck: Supple, FROM, no masses, or JVD, No carotid bruits, No thyromegaly Lungs: Clear to auscultation, Clear to percussion, Normal respiratory effort, no accessory muscle use Cardiovascular: Heart regular in rate and rhythm, No murmurs, gallops, or rubs, No peripheral edema Abdominal: Soft, Nontender, no guarding, rebound or rigidity, Normoactive bowel sounds, No hepatomegaly, No splenomegaly, No palpable mass Skin: Normal temperature, tone, texture, turgor, no induration, No subcutaneous nodules, No rash, lesions, No ulcers Extremities: No digital cyanosis, No clubbing, Pedal pulses intact and symmetrical, Radial pulses intact and symmetrical, No calf tenderness Neuro: Intubated, sedated - Labs CBC & Chem 7: 12/09/21 06:01 12/09/21 06:01 Labs: Abnormal Lab Results - Last 24 Hours (Table) 12/08/21 12/08/21 12/09/21 Range/Units 12:43 18:29 06:01 RBC 3.97 L (4.30-5.90) m/uL RDW 11.4 L (11.5-15.5) % Sodium (137-145) mmol/L BUN (9-20) mg/dL POC Glucose (mg/dL) 66 L 64 L (70-110) mg/dL Calcium (8.4-10.2) mg/dL 12/09/21 Range/Units 06:01 RBC (4.30-5.90) m/uL RDW (11.5-15.5) % Sodium 136 L (137-145) mmol/L BUN 4 L (9-20) mg/dL POC Glucose (mg/dL) (70-110) mg/dL Calcium 8.2 L (8.4-10.2) mg/dL Microbiology - Last 24 Hours (Table) 12/06/21 23:35 Gram Stain - Final Sputum Sputum Culture - Final 12/06/21 13:55 Blood Culture - Preliminary Blood No Growth after 48 hours 12/06/21 14:10 Blood Culture Gram Stain - Preliminary Blood Blood Culture - Preliminary Coagulase Negative Staph 12/07/21 04:35 Urine Culture - Final Urine,Catheterized Assessment and Plan Plan: Acute hypoxemic respiratory failure Patient was seen by pulmonary, Currently extubated Status epilepticus He was loaded with Dilantin, vimpat, Keppra dose was increased to 1 g twice a day. He is being followed by neurology Monitor in ICU EEG showing mild encephalopathy with no epileptical discharges. Cannot have MRI due to current condition and anxiety, neuro ok with doing it outpatient. SIRS possible sepsis Aspiration pneumonitis IV fluids [place] cultures sent Chest x-ray showing possible LLL infiltrates vs atelectasis Continue on zosyn for now seen by ID Blood cx growing coag neg staphX 1 set likely contamination Metabolic acidosis Likely sec to dehydration, can't r/u sepsis Improved. Hypoglycemia Starting to eat now. 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 likely bipolar Will consult psych, already petitioned by his . Hx of PUD/GI prophylaxis PPI IV
--- NOTE | 2021-12-09 11:44 | P.PN ---
Subjective Progress Note Date: 12/09/21 Principal diagnosis: Acute hypoxic respiratory failure secondary to status epilepticus, possible pseudoseizure This is a 36-year-old white male, known history of stomach ulcers, presented to the ER yesterday with intractable nausea and vomiting. Drug screen was positive for multiple drugs including marijuana, amphetamine, tricyclics, cocaine, and benzodiazepines. Patient also mentioned that he may have had a seizure that was witnessed by his friend. While in the triage area in the ER, patient started having uncontrollable shaking, brought back to the trauma bay and suddenly patient stopped shaking set up and began throwing up. He had nonbloody emesis. Apparently the patient had some questionable history of previous seizures and he was a very poor historian at the time of presentation. Patient was seen by neurology on consultation, and apparently he had multiple episodes of seizure- like activities, and the neurologist felt that the patient has status epileptic us. Patient was transferred to the ICU, and upon arrival to the ICU, patient was intubated because of status epilepticus, placed on propofol and Versed, and I was asked to see him on consultation. Patient is now on assist control rate of 22, volume 450 FiO2 40% PEEP of 5 ABG showed a pO2 of 159 pCO2 36 pH of 7.44. Patient is maintaining on Versed at 2 mg per hour up a fall 50 mcg/kg/m Keppra 1 g every 12 hours is also on Zosyn empirically. After evaluating the patient, I cut down his FiO2 to 35%, and patient is scheduled to undergo EEG at 1 PM today. I have also recommended starting the patient on enteral feedings, GI and DVT prophylaxis also recommended. Reevaluated today on 12/08/2021, patient remains in the ICU, intubated and mechanically ventilated. He is on assist control rate of 22,000 volume 450 FiO2 35% PEEP of 5 ABG showed a pO2 of 99 pCO2 of 35 pH of 7.43 patient remains on Versed at 2 mg per hour and propofol at 55 mcg/kg/m. Patient is on IV fluid at KVO. EEG showed mild encephalopathy, no seizure activity. Chest x-ray showed improvement in his left basilar opacity. Labs were all reviewed CBC and basic metabolic profile is normal. Patient remains sedated, however I plan to discontinue Versed, tapered down propofol and start the patient on Precedex today, gradually increase the Precedex and gradually taper off the propofol, my plan is to wean the patient and possibly extubate him in the next few hours. Reevaluated today on 12/09/2021, patient was extubated yesterday, tolerated the extubation quite well, patient is doing well overall, and I have recommended psychiatric consultation on this patient, based on the psychiatric input, patient will likely be transferred out of the ICU to a regular medical floor unless he needs psychiatric admission. Patient is asking to be discharged home, and he seems to be anxious. However he is relatively calm, and does not seem to be agitated. Labs today were basically unremarkable including CBC and basic metabolic profile. Objective - Vital Signs Vital signs: Vital Signs Temp 98.9 F 12/09/21 04:00 Pulse 78 12/09/21 11:00 Resp 13 12/09/21 11:00 BP 123/77 12/09/21 11:00 Pulse Ox 95 12/09/21 09:00 FiO2 35 12/08/21 08:00 Intake & Output 12/08/21 12/09/21 12/09/21 18:59 06:59 18:59 Intake Total 793.316 4723 350 Output Total 1595 1000 0 Balance -778.348 290 350 Weight 68.1 kg Intake: IV 350 210 200 0.9% KVO 150 10 Piperacillin-Tazobactam 3 100 100 100 .375 gm In Sodium Chloride 0.9% 100 ml @ 25 mls/hr IVPB Q8HR [facility] Rx# :[id number] levETIRAcetam IV 1,000 mg 100 100 100 In Saline 1 100ml.bag @ 400 mls/hr IVPB Q12HR [facility] Rx#:[id number] Intake, IV Titration 69.652 Amount Dexmedetomidine/0.9% NaCl 17.051 (Pmx) 400 mcg In Empty Bag 1 bag @ 0.2 MCG/KG/HR 3.3 mls/hr IV .Q24H [facility] Rx#:[id number] Midazolam HCl 50 mg In 5.967 Sodium Chloride 0.9% 40 ml @ 1 MG/HR 1 mls/hr IV .Q24H [facility] Rx#:[id number] propofoL 1,000 mg In 46.634 Empty Bag 1 bag @ 5 MCG/ KG/MIN 1.823 mls/hr IV . Q24H [facility] Rx#:[id number] Oral 250 1080 150 Tube Feeding 117 Other 30 Output: Urine 1595 1000 0 Other: Voiding Method Indwelling Catheter Urinal # Voids 1 1 1 # Bowel Movements 1 1 - Exam Physical Exam: Revealed 36-year-old white male , in no distress. Head: Atraumatic, normocephalic HEENT:[Neck is supple.] [No neck masses.] [No thyromegaly.] [No JVD.] Chest: [Clear throughout, no crackles, no rhonchi, no wheezes.] Cardiac Exam: [Normal S1 and S2, no S3 gallop, no murmur.] Abdomen: [Soft, nontender, no megaly, no rebound, no guarding, normal bowel sounds.] Extremities: [No clubbing, no edema, no cyanosis.] Neurological Exam: Alert and oriented 3 no gross focal neurologic deficits. Psychiatric: Slightly anxious, normal affect, and normal mental status examination. Skin: No rashes. - Labs CBC & Chem 7: 12/09/21 06:01 12/09/21 06:01 Labs: Abnormal Lab Results - Last 24 Hours (Table) 12/08/21 12/08/21 12/09/21 Range/Units 12:43 18:29 06:01 RBC 3.97 L (4.30-5.90) m/uL RDW 11.4 L (11.5-15.5) % Sodium (137-145) mmol/L BUN (9-20) mg/dL POC Glucose (mg/dL) 66 L 64 L (70-110) mg/dL Calcium (8.4-10.2) mg/dL 12/09/21 Range/Units 06:01 RBC (4.30-5.90) m/uL RDW (11.5-15.5) % Sodium 136 L (137-145) mmol/L BUN 4 L (9-20) mg/dL POC Glucose (mg/dL) (70-110) mg/dL Calcium 8.2 L (8.4-10.2) mg/dL Microbiology - Last 24 Hours (Table) 12/06/21 23:35 Gram Stain - Final Sputum Sputum Culture - Final 12/06/21 13:55 Blood Culture - Preliminary Blood No Growth after 48 hours 12/06/21 14:10 Blood Culture Gram Stain - Preliminary Blood Blood Culture - Preliminary Coagulase Negative Staph 12/07/21 04:35 Urine Culture - Final Urine,Catheterized Assessment and Plan Assessment: Impression: Acute hypoxic respiratory failure secondary to status epilepticus, possible pseudoseizure, patient was extubated yesterday, and tolerated the extubation quite well. EEG did not show any evidence of seizure activity. Multiple drugs toxicity based on drug screen Questionable history of seizures Recommendation: Psychiatric consultation Transfer to a regular medical floor with sitter at bedside. Unless the patient need psychiatric admission Continue to monitor for any seizures or pseudoseizures Neurology to make a decision regarding his Keppra We'll continue to follow as needed Time with Patient: Less than 30
[2021-12-09 12:40] VITALS: TEMP 98.2
[2021-12-09 14:08] VITALS: BP 137/84; PULSE 93; RESP 20
--- NOTE | 2021-12-09 14:16 | P.PN ---
Subjective Progress Note Date: 12/09/21 The patient is seen at bedside and per nurse he had a seizure-like activity yesterday and it was pseudoseizure and moving all extremities. Today patient denies having any history of seizures. Per nurse Psychiatry was involved yesterday and they stated it was felt by psychiatry it was not psychiatric issues and medication issue and cleared him according to nurse. Objective - Vital Signs Vital signs: Vital Signs Temp 98.2 F 12/09/21 12:00 Pulse 93 12/09/21 14:00 Resp 20 12/09/21 14:00 BP 137/84 12/09/21 14:00 Pulse Ox 97 12/09/21 12:00 FiO2 35 12/08/21 08:00 Intake & Output 12/08/21 12/09/21 12/09/21 18:59 06:59 18:59 Intake Total 606.927 2468 350 Output Total 1595 1000 0 Balance -778.348 290 350 Weight 68.1 kg Intake: IV 350 210 200 0.9% KVO 150 10 Piperacillin-Tazobactam 3 100 100 100 .375 gm In Sodium Chloride 0.9% 100 ml @ 25 mls/hr IVPB Q8HR [facility] Rx# :[id number] levETIRAcetam IV 1,000 mg 100 100 100 In Saline 1 100ml.bag @ 400 mls/hr IVPB Q12HR [facility] Rx#:[id number] Intake, IV Titration 69.652 Amount Dexmedetomidine/0.9% NaCl 17.051 (Pmx) 400 mcg In Empty Bag 1 bag @ 0.2 MCG/KG/HR 3.3 mls/hr IV .Q24H [facility] Rx#:[id number] Midazolam HCl 50 mg In 5.967 Sodium Chloride 0.9% 40 ml @ 1 MG/HR 1 mls/hr IV .Q24H [facility] Rx#:[id number] propofoL 1,000 mg In 46.634 Empty Bag 1 bag @ 5 MCG/ KG/MIN 1.823 mls/hr IV . Q24H [facility] Rx#:[id number] Oral 250 1080 150 Tube Feeding 117 Other 30 Output: Urine 1595 1000 0 Other: Voiding Method Indwelling Catheter Urinal # Voids 1 1 1 # Bowel Movements 1 1 - Exam GENERAL: The patient is lying in bed and not in acute distress. Appears much older than his age. NEUROLOGICAL: Higher mental function: Awake, alert, oriented to self, place and times. Cranial Nerves: Pupils are round, equal and reactive to light. VFF to confrontation. EOM intact and no nystagmus. No facial weakness, no dysarthria. Gait is normal. Moving all extremities and no focality noted. Strength is 5/5. Some of the workup in our facility consisted of: Initial plasma lactate acetate is 7.4-->1.1, BUN is 28, initial serum glucose is 120, Initial white blood cell is 19.4-->12.8 and slightly neutrophilic--resolved. TSH: 1.010 CT of the head is reported as no suspicious acute intracranial changes. Follow up MRI can be performed as clinically indicated. I personally reviewed CT of the head and I agree with the report CT cervical spine is reported as unremarkable. Urine drug screen: +ve opiates, tricyclic, amphetamine, benzo, cocaine, marijuana. serum Alcohol <10 Routine EEG is abnormal. The background slowing suggestive of mild encephalopathy. There is no focal slowing, epileptiform discharges or seizure in the EEG - Labs CBC & Chem 7: 12/09/21 06:01 12/09/21 06:01 Labs: Abnormal Lab Results - Last 24 Hours (Table) 12/08/21 12/09/21 12/09/21 Range/Units 18:29 06:01 06:01 RBC 3.97 L (4.30-5.90) m/uL RDW 11.4 L (11.5-15.5) % Sodium 136 L (137-145) mmol/L BUN 4 L (9-20) mg/dL POC Glucose (mg/dL) 64 L (70-110) mg/dL Calcium 8.2 L (8.4-10.2) mg/dL Microbiology - Last 24 Hours (Table) 12/06/21 23:35 Gram Stain - Final Sputum Sputum Culture - Final 12/06/21 13:55 Blood Culture - Preliminary Blood No Growth after 48 hours 12/06/21 14:10 Blood Culture Gram Stain - Preliminary Blood Blood Culture - Preliminary Coagulase Negative Staph 12/07/21 04:35 Urine Culture - Final Urine,Catheterized Assessment and Plan Assessment: * Recurrent episodes of seizure-like activity and it was felt patient was in status epilepticus during hospital visit (per Primary team some his episodes seemed pseudo and some seemed true in nature). As result patient was intubated and on ventilator for airway protection then extubated. Largely his episodes seen by nursing staff were felt pseudo-seizure. * Leukocytosis, lactic acid and elevated labs seems a component reactive to his seizure and not just emisis--resolved. * Acute on chronic emisis, vomiting with abdominal pain (had multiple ED physician for the same complaint) * History of reported seizure (few months ago) and not on antiepileptic drug but today he denies history of seizures. * Encephalopathy possible due to seizure, medication induced (Versed and Propofol) * Polysubstance abuse (Urine drug scree is positive for opiates, TCA, Amphetamine, benzo, cocaine and Marijuana). Patient denies of using these drug except for marijuana * History of Chronic pancreatitis * History of Alcohol use and reported sober 4-5 years ago * History of ulcer * Nicotine use * Marijuana use Plan: Continue Keppra to 1gm bid (was not on any antiepileptic drugs prior). Pending MRI Brain w/ and w/o: Seizure protocol. IF patient refuses then can be obtained as outpatient. Continue neuro checks. On seizure precaution and pads. Continue thiamine 100mg daily. Recommend prolonged EEG as outpatient to capture those episodes. Per nurse Psychiatry was involved yesterday and they stated it was felt by psychiatry it was not psychiatric issues and medication issue and cleared him according to nurse. Patient was counseled on polysubstance cessation. Will defer the rest of medical management to the primary team and ICU team. Patient is to follow-up with neurologist as outpatient within 1-2 weeks. The plan is discussed with the patient, primary team and his nurse. Otherwise, no additional work-up needed. Please notify neurology team if any further concerns. Derick Woods M.D. Neuro-Hospitalist Time with Patient: Less than 30
--- NOTE | 2021-12-09 14:17 | P.DS ---
Providers Date of admission: 12/06/21 13:44 Expected date of discharge: 12/09/21 Attending physician: Farnaz Huff DO Consults: 12/06/21 13:44 Consult Physician Routine Consulting Provider: Derick Woods Consult Reason/Comments: seizure vs. pseudoseizure Do you want consulting provider notified?: Yes, Notify in am 12/06/21 22:46 Consult Physician Routine Consulting Provider: Sreekanth Menjivar Consult Reason/Comments: ICU management Do you want consulting provider notified?: Already Contacted 12/07/21 00:25 Consult Physician Routine Consulting Provider: Kristal Savage Consult Reason/Comments: Sepsis Do you want consulting provider notified?: Yes, Notify in am 12/08/21 16:47 Consult Physician Routine Consulting Provider: Isauro Hernandez Consult Reason/Comments: impulsive, fall to floor, tearful Do you want consulting provider notified?: Yes Primary care physician: Stated None Hospital Course: 36-year-old male with past medical history remarkable for intractable nausea and vomiting, possible seizure disorder, marijuana use, was admitted yesterday for suspected marijuana hyperemesis syndrome. However patient left AMA. He returned due to continued nausea and vomiting as well as potential seizure. He was with a friend in the ER. They told ER staff that they were out today when the patient laid on the ground and may have had a seizure. In the ER triage and during the ER stay he had 2 ''seizures'', he was shaking. According to ER he stopped shaking when ed physician saw him. Also in the ER he threw up. He is a very poor historian, only willing to answer questions with a yes or no. He has been having abdominal pain, blood in the stools, n/v for the past few days. Used to be alcoholic but quit. States he has ''stomach ulcers'' from alcohol. He smokes marijuana on a daily basis, last use 4 days ago. Denies chest pain or shortness of breath. Denies sick contacts. Denies diarrhea. Work up in the ER showed plasma lactate acetate is 7.4, BUN is 28, initial serum glucose is 120, white blood cell is 19.[address] of the head is reported as no suspicious acute intracranial changes. CT cervical spine is reported as unremarkable. Urine drug screen tested positive for amphetamines, opiates, marijuana, tricyclic antidepressants, cocaine. Upon admission patient was started on IV fluids. Hemoglobin was monitored and remained okay. Patient was noted to have multiple seizure episodes after he was admitted. He was transferred to the ICU, was started on IV Keppra, was loaded with Vimpat and dilantin as well. He was intubated for protection, extubated after about 48 hours. He was followed by pulmonary. He was also seen by neurology. EEG was done, did not show any focal epileptic discharges. Neurology recommended outpatient brain MRI. Patient was told about that. Throughout the admission patient was severely anxious and intermittently agitated. His most likely that all of his symptoms were related to drug abuse. His chest x-ray showing possible infiltrates from aspiration. He was treated with Zosyn. He was seen by psychiatry today who cleared patient for discharge. Patient will be discharged home in a stable condition Patient Condition at Discharge: Stable Plan - Discharge Summary Discharge Rx Participant: No New Discharge Prescriptions: New levETIRAcetam [Keppra] 1,000 mg PO Q12HR 30 Days #60 tab Amoxic-Pot Clav 875-125Mg [Augmentin 875-125] 1 tab PO BID 5 Days #10 tab Continue Sucralfate [Carafate] 1 gm PO BID #14 tab Metoclopramide [Reglan] 10 mg PO TID PRN #15 tab PRN Reason: Nausea Naproxen [Naprosyn] 500 mg PO BID-W/MEALS Ondansetron Odt [Zofran ODT] 4 mg PO Q8HR PRN #10 tab PRN Reason: Nausea Omeprazole [PriLOSEC] 40 mg PO DAILY #14 cap Discharge Medication List Ondansetron Odt [Zofran ODT] 4 mg PO Q8HR PRN #10 tab 11/18/21 [Rx] Metoclopramide [Reglan] 10 mg PO TID PRN #15 tab 11/19/21 [Rx] Omeprazole [PriLOSEC] 40 mg PO DAILY #14 cap 11/19/21 [Rx] Sucralfate [Carafate] 1 gm PO BID #14 tab 11/19/21 [Rx] Naproxen [Naprosyn] 500 mg PO BID-W/MEALS 12/06/21 [History] Amoxic-Pot Clav 875-125Mg [Augmentin 875-125] 1 tab PO BID 5 Days #10 tab 12/09/21 [Rx] levETIRAcetam [Keppra] 1,000 mg PO Q12HR 30 Days #60 tab 12/09/21 [Rx] Follow up Appointment(s)/Referral(s): None,Stated [Primary Care Provider] - 1-2 days Derick Woods MD [STAFF PHYSICIAN] - 1 Week Ambulatory/Diagnostic Orders: Miscellaneous Radiology Order [RAD.AMB] Location: None Selected
--- NOTE | 2021-12-12 10:56 | CDI ---
Documentation Clarification Form Date: 12/12/2021 09:43:39 AM From: Marielle Trevizo RN CCDS Admit Date: 12/06/2021 01:44:00 PM Patient Name: Santiago Tamez Visit Number: [id number] Discharge Date: 12/09/2021 04:17:00 PM ATTENTION: The Clinical Documentation Specialists (CDI) and [facility] Coding Staff appreciate your assistance in clarifying documentation. Please respond to the clarification below the line at the bottom and electronically sign. The CDI & [facility] Coding staff will review the response and follow-up if needed. Please note: Queries are made part of the Legal Health Record. If you have any questions, please contact the author of this message via ITS. Dr. Dee Ruelas Acute Hypoxemic Respiratory Failure is documented 12/09, Medicine progress note which may lack sufficient clinical evidence/support in the medical record. Additional clarification is requested. History/Risk Factors: 36-year-old male presents to the ED with nausea, vomiting and potential seizure. In ER triage 2 seizures and shaking. Denied shortness of breath or chest pains. Medical history: Cyclic vomiting syndrome due to marijuana abuse. 12/06, H&P Clinical Indicators: 12/06 22:50, VSS: B/P 100/62 HR 101; RR 17; SpO2 96% room air 12/06 23:00, VSS: B/P 97/57; HR 93; SpO2 96% room air 12/06 23:29, [employer]OOK Note: Called to ICU to secure airway for patient in postictal state. 12/07, Blood Gas: PH 7.37; pCO2 44; pO2 >400; HCO3 25; Total CO2 27; ABG O2 SAT 100.0 12/07, Pulmonary Consult : and the neurologist felt that the patient has status epilepticus. Patient was transferred to the ICU, and upon arrival to the ICU, patient was intubated because of status epilepticus, placed on propofol and Versed, and I was asked to see him on consultation. Treatment: 12/08 Lacosamide IVPB x 1; 12/06 Levetiracetam IVPB x 1; Levetiracetam 500mg IVPB Q12H changed 12/07 1,000mg Q12H; EEG, Neurology consult. Intubation 12/06 23:29 extubation 12/08 10:48; 12/08 room air Please clarify if Acute Respiratory Failure is a valid diagnosis? [ ] Yes, Acute Respiratory Failure is present as evidence by (additional clinical support): [ ] No, Acute Respiratory Failure is ruled out [ ] Other (please specify diagnosis) [ ] Unable to determine (Template Last Revised: July 2020) Yes, Acute Respiratory Failure is present due to lack of airway protection MTDD
== END 2021-12-09 16:17 | disposition home or self-care (01) | DRG 871 ==
LOC: EC 11:49 → 4SSUR 13:44 → 2SICU 22:39
PROVIDERS: ADMIT Internal Medicine; ATTEND Internal Medicine
PROC: 5A1945Z Respiratory Ventilation, 24-96 Consecutive Hours (ICD-10-PCS; principal; 2021-12-06)
PROC: 0BH17EZ Insertion of Endotracheal Airway into Trachea, Via Natural or Artificial Opening (ICD-10-PCS; 2021-12-06)
PROC: 4A10X4Z Monitoring of Central Nervous Electrical Activity, External Approach (ICD-10-PCS; 2021-12-06)
DX: A41.9 Sepsis, unspecified organism (principal); G93.41 Metabolic encephalopathy; J69.0 Pneumonitis due to inhalation of food and vomit; J96.01 Acute respiratory failure with hypoxia; K25.4 Chronic or unspecified gastric ulcer with hemorrhage; K86.1 Other chronic pancreatitis; E87.2 Acidosis; K92.1 Melena; T40.495A Adverse effect of other synthetic narcotics, initial encounter; Z20.822 Contact with and (suspected) exposure to COVID-19; F12.10 Cannabis abuse, uncomplicated; G40.901 Epilepsy, unspecified, not intractable, with status epilepticus; E86.0 Dehydration; R11.15 Cyclical vomiting syndrome unrelated to migraine; F14.10 Cocaine abuse, uncomplicated; F17.210 Nicotine dependence, cigarettes, uncomplicated; Z53.29 Procedure and treatment not carried out because of patient's decision for other reasons; Z82.49 Family history of ischemic heart disease and other diseases of the circulatory system; W19.XXXA Unspecified fall, initial encounter; T42.4X5A Adverse effect of benzodiazepines, initial encounter; X58.XXXA Exposure to other specified factors, initial encounter; Z71.51 Drug abuse counseling and surveillance of drug abuser
CPT/HCPCS: 36415; 36600; 70450; 71045; 72125; 74177; 80048; 80053; 80306; 80320; 81001; 82150; 82805; 83605; 83690; 84443; 85025; 85027; 85610; 85730; 86850; 86900; 86901; 87040; 87070; 87077; 87086; 87186; 87205; 87635; 93005; 94002; 94003; 95819; 96361; 96365; 96366; 96368; 96375; 99291